=== PATIENT | female | born 1965 | race Caucasian/White ===

== ENCOUNTER 2016-07-27 18:29 | Inpatient (IN) | payer MEDICARE, MEDICAID ==
[~2016-07-27] VITALS: Ht 172.7 cm; Wt 123.9 kg
[~2016-07-27 18:29] MED LIST: ALBU8.5H3 IH; ASPI-1093 PO; CINA30 PO; INSLAN SQ; ISOS60TA4 PO; OXYC-158 PO; RANO500T3 PO; SEVEC800 PO; SIMV-261 PO; TEMA15CA PO; TICA90TA PO
[2016-07-27] MEDS ORDERED: LISI-662 PO (18:34)
[2016-07-27 18:41] LABS: GLUCOSE,POINT OF CARE 111 MG/DL (70-110)
[2016-07-27 19:39] LABS: BASOPHILS # (AUTO) 0.01 K/uL (0.00-0.20); BASOPHILS % (AUTO) 0.1 % (0.0-2.0); EOSINOPHILS # (AUTO) 0.19 K/uL (0.00-0.70); EOSINOPHILS % (AUTO) 1.77 % (1.0-6.0); HEMATOCRIT 30.9 % (36-46); HEMOGLOBIN 10.3 g/dL (12.0-16.0); LYMPHOCYTES # (AUTO) 1.7 K/uL (1.0-4.8); MEAN CORPUSCULAR HGB CONC 33.5 G/dL (31.0-37.0); MEAN CORPUSCULAR VOLUME 95 fL (80-100); MONOCYTES # (AUTO) 0.5 K/uL (0.1-1.0); MONOCYTES % (AUTO) 4.6 % (2.0-9.0); NEUTROPHILS # (AUTO) 8.3 K/uL (1.8-7.7); NEUTROPHILS % (AUTO) 77.6 % (40.0-70.0); PLATELET COUNT (AUTO) 186 K/uL (150-450); RED BLOOD CELL COUNT(AUTO) 3.23 MIL/uL (4.00-5.20); RED CELL DISTRIBUTION WIDTH 15.9 % (11.5-14.5); WHITE BLOOD COUNT (AUTO) 10.6 K/uL (4.5-11.0)
[2016-07-27] MEDS ORDERED: 0.9% SODIUM CHLORIDE 5 ML NEB SOLUTION NEB ONE (19:40)
[2016-07-27] MEDS ORDERED: MethylPREDNISolone SOD SUCC 125 MG/2 ML VIAL IVP ONE (19:45)
[2016-07-27] MEDS ORDERED: ALBUTEROL SULFATE 5 MG/ML 20 ML NEB SOLN [BULK] NEB ONE (19:45)
[2016-07-27] MEDS ORDERED: IPRATROPIUM BROMIDE 0.5 MG/2.5 ML NEB SOLUTION NEB ONE (19:45)
[2016-07-27] MEDS ORDERED: FUROSEMIDE 40 MG/4 ML VIAL IVP ONE (19:45)
[2016-07-27] MEDS ORDERED: HydrOXYzine PAMOATE 50 MG CAPSULE PO ONE (19:45)
[2016-07-27 19:56] LABS: ALANINE AMINOTRANSFERASE 8 U/L (12-78); ALBUMIN 3.4 g/dL (3.4-5.0); ANION GAP 14 mmol/L (8-16); ASPARTATE AMINOTRANSFERASE 8 U/L (15-37); BILIRUBIN,TOTAL 0.6 mg/dL (0.1-1.0); CALCIUM, TOTAL 9.3 mg/dL (8.8-10.5); CARBON DIOXIDE 23 mmol/L (22-29); CHLORIDE 102 mmol/L (98-107); CREATINE KINASE, TOTAL 30 U/L (26-192); CREATININE 8.38 mg/dL (0.60-1.30); GLOMERULAR FILTR. RATE CALC 5 mL/min (>60); SODIUM SERUM 139 mmol/L (136-145); TOTAL PROTEIN, SERUM 7.2 g/dL (6.4-8.2); UREA NITROGEN, BLOOD 53 mg/dL (7-18)
[2016-07-27] MEDS ORDERED: SODIUM POLYSTYRENE SULFONATE 15 GM/60 ML SUSPENSION BOTTLE PO ONE (20:30)
[2016-07-27] MEDS ORDERED: CALCIUM GLUCONATE 100 MG/ML 10 ML IVP ONE (20:30)
[2016-07-27] MEDS ORDERED: SODIUM BICARBONATE [ADULT] 8.4% 50 MEQ/50 ML SYRINGE IVP ONE (20:30)
[2016-07-27] MEDS ORDERED: INSULIN REGULAR, HUMAN 100 UNITS/ML IVP ONE (20:45)
[2016-07-27] MEDS ORDERED: MORPHINE SULFATE 4 MG/ML SYRINGE IVP PRN (20:45)
[2016-07-27] MEDS ORDERED: ACETAMINOPHEN 325 MG TABLET PO PRN (20:45)
[2016-07-27] MEDS ORDERED: ONDANSETRON HCL 4 MG/2 ML VIAL IVP PRN (20:45)
[2016-07-27] MEDS ORDERED: DEXTROSE 50%-WATER 25 GM/50 ML SYRINGE IVP ONE (20:45)
[2016-07-27] MEDS ORDERED: OxyCODONE HCL/ACETAMINOPHEN 5-325 MG TABLET PO PRN (20:45)
[2016-07-27] MEDS: ALBUTEROL SULFATE 2.5 MG/0.5 ML NEB SOLUTION NEB SCH (22:46)
[2016-07-27] MEDS: IPRATROPIUM BROMIDE 0.5 MG/2.5 ML NEB SOLUTION NEB SCH (22:46)
[2016-07-28] VITALS (8 sets, daily range): BP systolic 129–161; BP diastolic 69–96
[2016-07-28] MEDS: ALBUTEROL SULFATE 2.5 MG/0.5 ML NEB SOLUTION NEB SCH (03:20)
[2016-07-28] MEDS: IPRATROPIUM BROMIDE 0.5 MG/2.5 ML NEB SOLUTION NEB SCH (03:20)
[2016-07-28] MEDS ORDERED: ALBUTEROL SULFATE HFA 90 MCG/PUFF 8 GM INHALER IH PRN (03:30)
[2016-07-28] MEDS ORDERED: INSULIN DETEMIR 100 UNITS/ML SQ ONE (03:30)
[2016-07-28] MEDS ORDERED: TEMAZEPAM 15 MG CAPSULE PO PRN (03:30)
[2016-07-28] MEDS ORDERED: 0.9% SODIUM CHLORIDE 10 ML SYRINGE IVP PRN (03:45)
[2016-07-28] MEDS ORDERED: MAGNESIUM HYDROXIDE SUSPENSION 30 ML UDCUP PO PRN (03:45)
[2016-07-28] MEDS ORDERED: ACETAMINOPHEN 325 MG TABLET PO PRN (03:45)
[2016-07-28] MEDS ORDERED: ONDANSETRON HCL 4 MG/2 ML VIAL IVP PRN (03:45)
[2016-07-28] MEDS ORDERED: OxyCODONE HCL/ACETAMINOPHEN 5-325 MG TABLET PO PRN (03:45)
[2016-07-28 03:52] LABS: GLUCOSE,POINT OF CARE 234 MG/DL (70-110)
[2016-07-28] MEDS: OxyCODONE HCL/ACETAMINOPHEN 5-325 MG TABLET PO PRN ×3 (07:51→22:26)
[2016-07-28] MEDS ORDERED: SEVELAMER CARBONATE 800 MG TABLET PO SCH (08:00)
[2016-07-28] MEDS ORDERED: CINACALCET HCL 30 MG TABLET PO SCH (08:00)
[2016-07-28] MEDS: PANTOPRAZOLE SODIUM 40 MG/VIAL IVP SCH (09:03)
[2016-07-28] MEDS: DOCUSATE SODIUM 100 MG CAPSULE PO SCH ×2 (09:04→22:23)
[2016-07-28] MEDS: LISINOPRIL 20 MG TABLET PO SCH (09:18)
[2016-07-28] MEDS: RANOLAZINE 500 MG SR TABLET PO SCH ×2 (09:18→22:23)
[2016-07-28] MEDS: ASPIRIN 81 MG EC TABLET PO SCH (09:18)
[2016-07-28] MEDS: VITAMIN B COMP/VIT C/FOLIC ACID CAPSULE PO SCH (13:34)
[2016-07-28] MEDS: SEVELAMER CARBONATE 800 MG TABLET PO SCH (17:49)
[2016-07-28] MEDS ORDERED: SIMVASTATIN 40 MG TABLET PO SCH (21:00)
[2016-07-28] MEDS ORDERED: SODIUM CHLORIDE 0.9% 1,000 ML IV ONE ×2 (23:36→23:37)
[2016-07-29] VITALS: BP 104/45
[2016-07-29] MEDS ORDERED: DEXTROSE 50%-WATER 25 GM/50 ML SYRINGE IVP PRN (04:00)
[2016-07-29 04:11] VITALS: BP 107/54
[2016-07-29] MEDS: INSULIN ASPART 100 UNITS/ML SQ PRN ×2 (06:34→11:33)
[2016-07-29 07:11] VITALS: BP 117/68
[2016-07-29 07:55] LABS: BASOPHILS % (AUTO) 0.3 % (0.0-2.0); EOSINOPHILS % (AUTO) 0.4 % (1.0-6.0); HEMATOCRIT 27.1 % (36-46); HEMOGLOBIN 8.8 g/dL (12.0-16.0); LYMPHOCYTES % (AUTO) 20.1 % (22.0-44.0); MEAN CORPUSCULAR HEMOGLOBIN 31.4 pg (26.0-34.0); MEAN CORPUSCULAR HGB CONC 32.4 G/dL (31.0-37.0); MEAN CORPUSCULAR VOLUME 97 fL (80-100); MONOCYTES # (AUTO) 0.4 K/uL (0.1-1.0); MONOCYTES % (AUTO) 4.3 % (2.0-9.0); NEUTROPHILS # (AUTO) 7.6 K/uL (1.8-7.7); NEUTROPHILS % (AUTO) 74.9 % (40.0-70.0); PLATELET COUNT (AUTO) 147 K/uL (150-450); RED BLOOD CELL COUNT(AUTO) 2.79 MIL/uL (4.00-5.20); RED CELL DISTRIBUTION WIDTH 15.6 % (11.5-14.5); WHITE BLOOD COUNT (AUTO) 10.2 K/uL (4.5-11.0)
[2016-07-29] MEDS ORDERED: CINACALCET HCL 30 MG TABLET PO SCH (08:00)
[2016-07-29 08:25] LABS: ALANINE AMINOTRANSFERASE 7 U/L (12-78); ALBUMIN 3.2 g/dL (3.4-5.0); ANION GAP 9 mmol/L (8-16); ASPARTATE AMINOTRANSFERASE < 5 U/L (15-37); BILIRUBIN,TOTAL 0.4 mg/dL (0.1-1.0); CALCIUM, TOTAL 8.9 mg/dL (8.8-10.5); CARBON DIOXIDE 29 mmol/L (22-29); CHLORIDE 101 mmol/L (98-107); CREATININE 5.53 mg/dL (0.60-1.30); GLOMERULAR FILTR. RATE CALC 8 mL/min (>60); POTASSIUM 4.3 mmol/L (3.5-5.1); SODIUM SERUM 139 mmol/L (136-145); TOTAL PROTEIN, SERUM 6.6 g/dL (6.4-8.2); UREA NITROGEN, BLOOD 32 mg/dL (7-18)
[2016-07-29] MEDS: PANTOPRAZOLE SODIUM 40 MG/VIAL IVP SCH (08:44)
[2016-07-29] MEDS: SEVELAMER CARBONATE 800 MG TABLET PO SCH ×2 (08:45→12:00)
[2016-07-29] MEDS: RANOLAZINE 500 MG SR TABLET PO SCH (08:46)
[2016-07-29] MEDS: VITAMIN B COMP/VIT C/FOLIC ACID CAPSULE PO SCH (08:46)
[2016-07-29] MEDS: DOCUSATE SODIUM 100 MG CAPSULE PO SCH (08:46)
[2016-07-29] MEDS: LISINOPRIL 20 MG TABLET PO SCH (08:46)
[2016-07-29] MEDS: ASPIRIN 81 MG EC TABLET PO SCH (08:46)
[2016-07-29 10:59] VITALS: BP 109/59
[2016-07-29] MEDS: OxyCODONE HCL/ACETAMINOPHEN 5-325 MG TABLET PO PRN (11:55)
[2016-07-29 15:05] VITALS: BP 118/68
[2016-07-29] MEDS ORDERED: DiphenhydrAMINE HCL 50 MG/ML VIAL IVP ONE (15:59)
[2016-07-29 17:22] LABS: GLUCOSE,POINT OF CARE 120 MG/DL (70-110)
[2016-08-07 11:47] LABS: GLUCOSE,POINT OF CARE 129 MG/DL (70-110)
== END 2016-07-29 16:00 | disposition home or self-care (01) | DRG 291 ==
LOC: EMS 18:32 → AHU 07-28 11:00 → 5N 07-28 20:00
PROVIDERS: ADMIT Internal Medicine; ATTEND Internal Medicine
PROC: 5A1D00Z (ICD-10-PCS; principal; 2016-07-28)
DX: I13.2 Hypertensive heart and chronic kidney disease with heart failure and with stage 5 chronic kidney disease, or end stage renal disease (principal); N18.6 End stage renal disease; Z68.41 Body mass index [BMI] 40.0-44.9, adult; N25.81 Secondary hyperparathyroidism of renal origin; E87.5 Hyperkalemia; D63.1 Anemia in chronic kidney disease; E11.22 Type 2 diabetes mellitus with diabetic chronic kidney disease; E11.42 Type 2 diabetes mellitus with diabetic polyneuropathy; F41.9 Anxiety disorder, unspecified; I25.10 Atherosclerotic heart disease of native coronary artery without angina pectoris; I48.0 Paroxysmal atrial fibrillation; I50.9 Heart failure, unspecified; E66.01 Morbid (severe) obesity due to excess calories; I35.0 Nonrheumatic aortic (valve) stenosis; J44.9 Chronic obstructive pulmonary disease, unspecified; J45.909 Unspecified asthma, uncomplicated; K52.9 Noninfective gastroenteritis and colitis, unspecified; Z95.5 Presence of coronary angioplasty implant and graft; Z99.2 Dependence on renal dialysis; I25.2 Old myocardial infarction; Z88.0 Allergy status to penicillin; Z90.710 Acquired absence of both cervix and uterus; Z98.890 Other specified postprocedural states; Z79.4 Long term (current) use of insulin; Z79.899 Other long term (current) drug therapy
CPT/HCPCS: 82962; 84132; 87081; 87340; 90935; 93005; 94640; 94644; 99291; C9113; J0610; J1200; J1815; J1940; J2930; J3490; J3535; J7030

== ENCOUNTER 2016-08-02 11:38 | Inpatient (IN) | payer MEDICARE, MEDICAID ==
[~2016-08-02] VITALS: Ht 167.6 cm; Wt 124.8 kg
[~2016-08-02 11:38] MED LIST changes: -ISOS60TA4 PO; +LISI-662 PO; -TICA90TA PO
[2016-08-02] MEDS ORDERED: ONDANSETRON HCL 4 MG/2 ML VIAL IM ONE (13:15)
[2016-08-02 13:29] LABS: BASOPHILS % (AUTO) 0.6 % (0.0-2.0); EOSINOPHILS % (AUTO) 0.6 % (1.0-6.0); LYMPHOCYTES # (AUTO) 1.4 K/uL (1.0-4.8); LYMPHOCYTES % (AUTO) 10.8 % (22.0-44.0); MEAN CORPUSCULAR HEMOGLOBIN 31.4 pg (26.0-34.0); MEAN CORPUSCULAR HGB CONC 32.8 G/dL (31.0-37.0); MEAN CORPUSCULAR VOLUME 96 fL (80-100); MONOCYTES # (AUTO) 0.6 K/uL (0.1-1.0); MONOCYTES % (AUTO) 4.6 % (2.0-9.0); NEUTROPHILS # (AUTO) 10.6 K/uL (1.8-7.7); NEUTROPHILS % (AUTO) 83.4 % (40.0-70.0); PLATELET COUNT (AUTO) 187 K/uL (150-450); RED BLOOD CELL COUNT(AUTO) 1.78 MIL/uL (4.00-5.20); RED CELL DISTRIBUTION WIDTH 15.6 % (11.5-14.5); WHITE BLOOD COUNT (AUTO) 12.8 K/uL (4.5-11.0)
[2016-08-02] MEDS ORDERED: ONDANSETRON HCL 4 MG/2 ML VIAL IVP ONE (13:30)
[2016-08-02 13:43] LABS: ALBUMIN 2.6 g/dL (3.4-5.0); ANION GAP 11 mmol/L (8-16); BILIRUBIN,TOTAL 0.4 mg/dL (0.1-1.0); CALCIUM, TOTAL 7.8 mg/dL (8.8-10.5); CARBON DIOXIDE 22 mmol/L (22-29); CHLORIDE 104 mmol/L (98-107); CREATININE 9.27 mg/dL (0.60-1.30); GLOMERULAR FILTR. RATE CALC 4 mL/min (>60); SODIUM SERUM 137 mmol/L (136-145); TOTAL PROTEIN, SERUM 5.2 g/dL (6.4-8.2); UREA NITROGEN, BLOOD 79 mg/dL (7-18)
[2016-08-02 13:44] LABS: HEMOGLOBIN 5.6 g/dL (12.0-16.0)
[2016-08-02 13:45] LABS: HEMATOCRIT 17.1 % (36-46)
[2016-08-02] MEDS ORDERED: MORPHINE SULFATE 10 MG/ML SYRINGE IVP ONE (13:45)
[2016-08-02 13:52] LABS: POTASSIUM 6.8 mmol/L (3.5-5.1)
[2016-08-02] MEDS ORDERED: DEXTROSE 5%-WATER 1,000 ML IV SCH (14:09)
[2016-08-02 14:11] LABS: ASPARTATE AMINOTRANSFERASE 7 U/L (15-37)
[2016-08-02 14:12] LABS: ALANINE AMINOTRANSFERASE < 6 U/L (12-78)
[2016-08-02] MEDS ORDERED: SODIUM BICARBONATE [ADULT] 8.4% 50 MEQ/50 ML SYRINGE IVP ONE (14:15)
[2016-08-02] MEDS ORDERED: CALCIUM GLUCONATE 100 MG/ML 10 ML IVP ONE ×2 (14:15→14:30)
[2016-08-02] MEDS ORDERED: DEXTROSE 50%-WATER 25 GM/50 ML SYRINGE IVP ONE ×2 (14:15→14:45)
[2016-08-02] MEDS ORDERED: SODIUM POLYSTYRENE SULFONATE 15 GM/60 ML SUSPENSION BOTTLE PO ONE (14:15)
[2016-08-02] MEDS ORDERED: INSULIN REGULAR, HUMAN 100 UNITS/ML IVP ONE (14:30)
[2016-08-02] MEDS ORDERED: PANTOPRAZOLE SODIUM 40 MG/VIAL IVP ONE (14:30)
[2016-08-02] MEDS ORDERED: HYDROmorphone 2 MG/ML SYRINGE IVP ONE (14:30)
[2016-08-02] MEDS ORDERED: ACETAMINOPHEN 325 MG TABLET PO PRN ×2 (14:45→21:45)
[2016-08-02] MEDS ORDERED: 0.9% SODIUM CHLORIDE 10 ML SYRINGE IVP PRN (14:45)
[2016-08-02] MEDS ORDERED: SODIUM CHLORIDE 0.9% 2,000 ML IV ONE (15:30)
[2016-08-02 15:31] LABS: INR 1.1 (0.9-1.1)
[2016-08-02] MEDS: ONDANSETRON HCL 4 MG/2 ML VIAL IVP PRN ×2 (15:32→18:03)
[2016-08-02] MEDS ORDERED: DESMOPRESSIN ACETATE 40 MCG in SODIUM CHLORIDE 0.9% 50 ML IV ONE (15:45)
[2016-08-02 16:26] LABS: INR 1.1 (0.9-1.1); PROTHROMBIN TIME 11.9 SEC (9.4-11.6)
[2016-08-02] MEDS ORDERED: MANNITOL 25%-12.5 GM/50 ML VIAL IVP PRN (16:45)
[2016-08-02 17:08] VITALS: BP 123/39
[2016-08-02] MEDS: PANTOPRAZOLE SODIUM 40 MG/VIAL IVP SCH (18:03)
[2016-08-02 18:30] VITALS: BP 150/67
[2016-08-02 18:45] VITALS: BP 129/60
[2016-08-02 19:00] VITALS: BP 149/51
[2016-08-02 20:14] VITALS: BP 140/57
[2016-08-02] MEDS ORDERED: ZOLPIDEM TARTRATE 10 MG TABLET PO PRN (21:45)
[2016-08-02] MEDS ORDERED: ALBUTEROL SULFATE HFA 90 MCG/PUFF 8 GM INHALER IH PRN (21:45)
[2016-08-02] MEDS: TEMAZEPAM 15 MG CAPSULE PO PRN (23:11)
[2016-08-02 23:25] VITALS: BP 122/45
[2016-08-03] VITALS (16 sets, daily range): BP systolic 87–118; BP diastolic 41–72
[2016-08-03] MEDS ORDERED: SODIUM CHLORIDE 0.9% 500 ML IV ONE (02:28)
[2016-08-03] MEDS: OxyCODONE HCL/ACETAMINOPHEN 5-325 MG TABLET PO PRN ×2 (02:59→20:33)
[2016-08-03] MEDS: SEVELAMER CARBONATE 800 MG TABLET PO SCH ×3 (07:50→18:00)
[2016-08-03] MEDS: RANOLAZINE 500 MG SR TABLET PO SCH ×2 (07:50→20:46)
[2016-08-03] MEDS: CINACALCET HCL 30 MG TABLET PO SCH (07:50)
[2016-08-03] MEDS: LISINOPRIL 20 MG TABLET PO SCH (07:51)
[2016-08-03] MEDS: PANTOPRAZOLE SODIUM 40 MG/VIAL IVP SCH ×2 (07:58→20:47)
[2016-08-03 08:19] LABS: BASOPHILS % (AUTO) 1.5 % (0.0-2.0); EOSINOPHILS % (AUTO) 1.4 % (1.0-6.0); HEMATOCRIT 23.1 % (36-46); HEMOGLOBIN 7.5 g/dL (12.0-16.0); LYMPHOCYTES # (AUTO) 2.7 K/uL (1.0-4.8); MEAN CORPUSCULAR HEMOGLOBIN 30.8 pg (26.0-34.0); MEAN CORPUSCULAR HGB CONC 32.5 G/dL (31.0-37.0); MEAN CORPUSCULAR VOLUME 95 fL (80-100); MONOCYTES # (AUTO) 0.7 K/uL (0.1-1.0); MONOCYTES % (AUTO) 6.7 % (2.0-9.0); NEUTROPHILS # (AUTO) 7.1 K/uL (1.8-7.7); NEUTROPHILS % (AUTO) 65.4 % (40.0-70.0); PLATELET COUNT (AUTO) 147 K/uL (150-450); RED BLOOD CELL COUNT(AUTO) 2.43 MIL/uL (4.00-5.20); RED CELL DISTRIBUTION WIDTH 15.3 % (11.5-14.5); WHITE BLOOD COUNT (AUTO) 10.8 K/uL (4.5-11.0)
[2016-08-03] MEDS ORDERED: PANTOPRAZOLE SODIUM 40 MG/VIAL IVP SCH (09:00)
[2016-08-03 09:39] LABS: CREATININE 7.05 mg/dL (0.60-1.30); POTASSIUM 5.7 mmol/L (3.5-5.1)
[2016-08-03 09:42] LABS: MAGNESIUM 1.8 mg/dL (1.80-2.40); PHOSPHORUS 5.4 mg/dL (2.5-4.9)
[2016-08-03] MEDS ORDERED: SODIUM CHLORIDE 0.9% 100 ML ONE ×2 (09:54→16:48)
[2016-08-03] MEDS ORDERED: SODIUM CHLORIDE 0.9% 1,000 ML IV ONE (10:42)
[2016-08-03] MEDS ORDERED: LIDOCAINE HCL/PF 2% 5 ML VIAL INJ ONE (12:00)
[2016-08-03] MEDS ORDERED: PROPOFOL 1% 20 ML VIAL IVP ONE (12:00)
[2016-08-03] MEDS ORDERED: DiphenhydrAMINE HCL 50 MG/ML VIAL IVP ONE (12:00)
[2016-08-03] MEDS ORDERED: MANNITOL 25%-12.5 GM/50 ML VIAL IVP PRN (14:30)
[2016-08-03] MEDS ORDERED: ALBUMIN HUMAN 25%-12.5GM/50ML IV BOTTLE IV PRN (14:30)
[2016-08-03] MEDS ORDERED: DiphenhydrAMINE HCL 50 MG/ML VIAL IVP PRN (15:15)
[2016-08-03] MEDS ORDERED: SODIUM CHLORIDE 0.9% 2,000 ML IV ONE (17:29)
[2016-08-03] MEDS: SIMVASTATIN 40 MG TABLET PO SCH (20:46)
[2016-08-04 04:19] VITALS: BP 100/50
[2016-08-04 07:14] VITALS: BP 99/54
[2016-08-04] MEDS: RANOLAZINE 500 MG SR TABLET PO SCH ×2 (08:03→21:49)
[2016-08-04] MEDS: EPOETIN ALFA 10,000 UNITS/ML VIAL SQ SCH (08:03)
[2016-08-04] MEDS: SEVELAMER CARBONATE 800 MG TABLET PO SCH ×3 (08:04→18:14)
[2016-08-04] MEDS: PANTOPRAZOLE SODIUM 40 MG/VIAL IVP SCH ×2 (08:04→21:49)
[2016-08-04] MEDS: LISINOPRIL 20 MG TABLET PO SCH (08:04)
[2016-08-04] MEDS: CINACALCET HCL 30 MG TABLET PO SCH (08:04)
[2016-08-04 08:39] LABS: BASOPHILS % (AUTO) 0.4 % (0.0-2.0); HEMATOCRIT 27.2 % (36-46); HEMOGLOBIN 8.9 g/dL (12.0-16.0); LYMPHOCYTES # (AUTO) 1.7 K/uL (1.0-4.8); LYMPHOCYTES % (AUTO) 18.2 % (22.0-44.0); MEAN CORPUSCULAR HGB CONC 32.8 G/dL (31.0-37.0); MEAN CORPUSCULAR VOLUME 94 fL (80-100); MONOCYTES # (AUTO) 0.7 K/uL (0.1-1.0); MONOCYTES % (AUTO) 7.2 % (2.0-9.0); NEUTROPHILS # (AUTO) 6.7 K/uL (1.8-7.7); NEUTROPHILS % (AUTO) 72.2 % (40.0-70.0); PLATELET COUNT (AUTO) 146 K/uL (150-450); RED BLOOD CELL COUNT(AUTO) 2.88 MIL/uL (4.00-5.20); RED CELL DISTRIBUTION WIDTH 15.3 % (11.5-14.5); WHITE BLOOD COUNT (AUTO) 9.3 K/uL (4.5-11.0)
[2016-08-04 08:45] LABS: CALCIUM, TOTAL 8.5 mg/dL (8.8-10.5); CREATININE 5.08 mg/dL (0.60-1.30); POTASSIUM 4.8 mmol/L (3.5-5.1)
[2016-08-04 08:49] LABS: MAGNESIUM 1.6 mg/dL (1.80-2.40); PHOSPHORUS 4.3 mg/dL (2.5-4.9)
[2016-08-04 10:55] VITALS: BP 100/63
[2016-08-04] MEDS: ONDANSETRON HCL 4 MG/2 ML VIAL IVP PRN ×2 (14:16→20:02)
[2016-08-04 16:25] VITALS: BP 91/48
[2016-08-04 20:13] VITALS: BP 117/68
[2016-08-04] MEDS: SIMVASTATIN 40 MG TABLET PO SCH (21:49)
[2016-08-04] MEDS: TEMAZEPAM 15 MG CAPSULE PO PRN (21:49)
[2016-08-04] MEDS ORDERED: LOPERAMIDE HCL 2 MG CAPSULE PO PRN (22:15)
[2016-08-04 23:41] VITALS: BP 104/53
[2016-08-05 06:12] VITALS: BP 112/61
[2016-08-05 08:16] VITALS: BP 118/49
[2016-08-05] MEDS: RANOLAZINE 500 MG SR TABLET PO SCH ×2 (08:32→20:27)
[2016-08-05] MEDS: SEVELAMER CARBONATE 800 MG TABLET PO SCH ×3 (08:32→18:35)
[2016-08-05] MEDS: CINACALCET HCL 30 MG TABLET PO SCH (08:32)
[2016-08-05] MEDS: PANTOPRAZOLE SODIUM 40 MG/VIAL IVP SCH ×2 (08:32→20:27)
[2016-08-05 09:32] LABS: BASOPHILS % (AUTO) 0.4 % (0.0-2.0); EOSINOPHILS % (AUTO) 1.8 % (1.0-6.0); HEMATOCRIT 27.9 % (36-46); HEMOGLOBIN 9.3 g/dL (12.0-16.0); LYMPHOCYTES # (AUTO) 1.7 K/uL (1.0-4.8); LYMPHOCYTES % (AUTO) 16.5 % (22.0-44.0); MEAN CORPUSCULAR HEMOGLOBIN 31.2 pg (26.0-34.0); MEAN CORPUSCULAR HGB CONC 33.3 G/dL (31.0-37.0); MEAN CORPUSCULAR VOLUME 94 fL (80-100); MONOCYTES # (AUTO) 0.6 K/uL (0.1-1.0); MONOCYTES % (AUTO) 6.2 % (2.0-9.0); NEUTROPHILS # (AUTO) 7.8 K/uL (1.8-7.7); NEUTROPHILS % (AUTO) 75.1 % (40.0-70.0); PLATELET COUNT (AUTO) 150 K/uL (150-450); RED BLOOD CELL COUNT(AUTO) 2.97 MIL/uL (4.00-5.20); WHITE BLOOD COUNT (AUTO) 10.3 K/uL (4.5-11.0)
[2016-08-05 09:43] LABS: CALCIUM, TOTAL 8.2 mg/dL (8.8-10.5); CREATININE 7.39 mg/dL (0.60-1.30); POTASSIUM 5.1 mmol/L (3.5-5.1)
[2016-08-05 14:37] LABS: H. PYLORI ANTIBODY IGM <9.0 units (0.0-8.9)
[2016-08-05 15:13] VITALS: BP 102/44
[2016-08-05 19:51] VITALS: BP 122/64
[2016-08-05] MEDS: SIMVASTATIN 40 MG TABLET PO SCH (20:27)
[2016-08-05 23:36] VITALS: BP 128/73
[2016-08-06 04:41] VITALS: BP 128/67
[2016-08-06 07:42] VITALS: BP 130/77
[2016-08-06] MEDS: CINACALCET HCL 30 MG TABLET PO SCH (08:21)
[2016-08-06] MEDS: PANTOPRAZOLE SODIUM 40 MG/VIAL IVP SCH (08:21)
[2016-08-06] MEDS: RANOLAZINE 500 MG SR TABLET PO SCH (08:21)
[2016-08-06] MEDS: SEVELAMER CARBONATE 800 MG TABLET PO SCH ×3 (08:21→18:00)
[2016-08-06] MEDS: EPOETIN ALFA 10,000 UNITS/ML VIAL SQ SCH (08:26)
[2016-08-06] MEDS: NITROGLYCERIN 2% (1 GM=INCH) PACKET TP SCH ×2 (08:45→16:00)
[2016-08-06 08:46] LABS: CALCIUM, TOTAL 8.4 mg/dL (8.8-10.5); CREATININE 6.13 mg/dL (0.60-1.30); POTASSIUM 4.6 mmol/L (3.5-5.1)
[2016-08-06 08:50] LABS: MAGNESIUM 1.7 mg/dL (1.80-2.40); PHOSPHORUS 4.8 mg/dL (2.5-4.9)
[2016-08-06] MEDS ORDERED: ATORVASTATIN CALCIUM 40 MG TABLET PO SCH (09:00)
[2016-08-06] MEDS ORDERED: METOPROLOL TARTRATE 25 MG TABLET PO SCH (09:00)
[2016-08-06 11:05] LABS: EOSINOPHILS % (AUTO) 1.3 % (1.0-6.0); HEMATOCRIT 27.8 % (36-46); HEMOGLOBIN 9.2 g/dL (12.0-16.0); LYMPHOCYTES # (AUTO) 1.2 K/uL (1.0-4.8); LYMPHOCYTES % (AUTO) 13.9 % (22.0-44.0); MEAN CORPUSCULAR HEMOGLOBIN 30.9 pg (26.0-34.0); MEAN CORPUSCULAR VOLUME 94 fL (80-100); MONOCYTES # (AUTO) 0.5 K/uL (0.1-1.0); MONOCYTES % (AUTO) 5.3 % (2.0-9.0); NEUTROPHILS % (AUTO) 79.5 % (40.0-70.0); PLATELET COUNT (AUTO) 158 K/uL (150-450); RED BLOOD CELL COUNT(AUTO) 2.96 MIL/uL (4.00-5.20); RED CELL DISTRIBUTION WIDTH 14.5 % (11.5-14.5); WHITE BLOOD COUNT (AUTO) 8.8 K/uL (4.5-11.0)
[2016-08-06] MEDS: ONDANSETRON HCL 4 MG/2 ML VIAL IVP PRN (15:38)
[2016-08-06 15:55] VITALS: BP 109/52
[2016-08-06] MEDS ORDERED: ATOR40TA28 PO (16:44)
[2016-08-06] MEDS ORDERED: METO25 PO (16:46)
[2016-08-06] MEDS ORDERED: DiphenhydrAMINE HCL 50 MG/ML VIAL IVP ONE (19:14)
[2016-08-07 11:59] LABS: GLUCOSE,POINT OF CARE 88 MG/DL (70-110)
== END 2016-08-06 19:15 | disposition home or self-care (01) | DRG 377 ==
LOC: EMS 11:40 → 5N 14:33
PROVIDERS: ADMIT Internal Medicine; ATTEND Hospitalist
PROC: 5A1D60Z (ICD-10-PCS; 2016-08-03)
PROC: 30233N1 Transfusion of Nonautologous Red Blood Cells into Peripheral Vein, Percutaneous Approach (ICD-10-PCS; 2016-08-03)
PROC: 0W3P8ZZ Control Bleeding in Gastrointestinal Tract, Via Natural or Artificial Opening Endoscopic (ICD-10-PCS; principal; 2016-08-03 11:30)
DX: K26.4 Chronic or unspecified duodenal ulcer with hemorrhage (principal); N18.6 End stage renal disease; I21.4 Non-ST elevation (NSTEMI) myocardial infarction; I13.2 Hypertensive heart and chronic kidney disease with heart failure and with stage 5 chronic kidney disease, or end stage renal disease; Z68.41 Body mass index [BMI] 40.0-44.9, adult; E11.22 Type 2 diabetes mellitus with diabetic chronic kidney disease; D64.9 Anemia, unspecified; E78.5 Hyperlipidemia, unspecified; E87.5 Hyperkalemia; J44.9 Chronic obstructive pulmonary disease, unspecified; E66.9 Obesity, unspecified; I25.10 Atherosclerotic heart disease of native coronary artery without angina pectoris; J45.909 Unspecified asthma, uncomplicated; I35.0 Nonrheumatic aortic (valve) stenosis; I48.0 Paroxysmal atrial fibrillation; I50.9 Heart failure, unspecified; Z87.11 Personal history of peptic ulcer disease; Z88.0 Allergy status to penicillin; Z79.4 Long term (current) use of insulin; Z79.891 Long term (current) use of opiate analgesic; Z79.899 Other long term (current) drug therapy; Z95.5 Presence of coronary angioplasty implant and graft; I25.2 Old myocardial infarction; Z99.2 Dependence on renal dialysis; Z90.710 Acquired absence of both cervix and uterus; Z90.49 Acquired absence of other specified parts of digestive tract; Z82.49 Family history of ischemic heart disease and other diseases of the circulatory system
CPT/HCPCS: 82962; 83540; 83550; 83735; 84100; 86677; 86850; 86900; 86901; 86920; 87081; 87340; 90935; 93005; 93306; 96374; 96375; 99291; C9113; J0610; J0885; J1200; J1815; J2270; J2405; J2597; J2704; J3490; J3535; J7030; J7040; J7050; P9016

== ENCOUNTER 2016-08-20 00:17 | Inpatient (IN) | payer MEDICARE, MEDICAID ==
[~2016-08-20] VITALS: Ht 172.7 cm; Wt 122.7 kg
[~2016-08-20 00:17] MED LIST changes: -ASPI-1093 PO; +ATOR40TA28 PO; -LISI-662 PO; +METO25 PO; -SIMV-261 PO
[2016-08-20 01:45] LABS: BASOPHILS % (AUTO) 0.4 % (0.0-2.0); EOSINOPHILS % (AUTO) 2.4 % (1.0-6.0); HEMATOCRIT 28.6 % (36-46); HEMOGLOBIN 9.2 g/dL (12.0-16.0); LYMPHOCYTES # (AUTO) 1.7 K/uL (1.0-4.8); LYMPHOCYTES % (AUTO) 16.3 % (22.0-44.0); MEAN CORPUSCULAR HEMOGLOBIN 30.7 pg (26.0-34.0); MEAN CORPUSCULAR HGB CONC 32.2 G/dL (31.0-37.0); MEAN CORPUSCULAR VOLUME 95 fL (80-100); MONOCYTES # (AUTO) 0.5 K/uL (0.1-1.0); MONOCYTES % (AUTO) 5.1 % (2.0-9.0); NEUTROPHILS # (AUTO) 7.7 K/uL (1.8-7.7); NEUTROPHILS % (AUTO) 75.8 % (40.0-70.0); PLATELET COUNT (AUTO) 169 K/uL (150-450); RED CELL DISTRIBUTION WIDTH 16.7 % (11.5-14.5); WHITE BLOOD COUNT (AUTO) 10.2 K/uL (4.5-11.0)
[2016-08-20 01:56] LABS: ANION GAP 11 mmol/L (8-16); CALCIUM, TOTAL 8.1 mg/dL (8.8-10.5); CARBON DIOXIDE 29 mmol/L (22-29); CHLORIDE 102 mmol/L (98-107); CREATININE 8.01 mg/dL (0.60-1.30); GLOMERULAR FILTR. RATE CALC 5 mL/min (>60); POTASSIUM 5.7 mmol/L (3.5-5.1); SODIUM SERUM 142 mmol/L (136-145); UREA NITROGEN, BLOOD 56 mg/dL (7-18)
[2016-08-20 02:02] LABS: ALANINE AMINOTRANSFERASE 8 U/L (12-78); ALBUMIN 3.5 g/dL (3.4-5.0); ASPARTATE AMINOTRANSFERASE 12 U/L (15-37); BILIRUBIN,TOTAL 0.5 mg/dL (0.1-1.0); CREATINE KINASE, TOTAL 49 U/L (26-192); TOTAL PROTEIN, SERUM 6.8 g/dL (6.4-8.2)
[2016-08-20 02:11] LABS: B-TYPE NATRIURETIC PEPTIDE 975 pg/mL (0-100)
[2016-08-20] MEDS ORDERED: IPRATROPIUM BROMIDE 0.5 MG/2.5 ML NEB SOLUTION NEB ONE (02:45)
[2016-08-20] MEDS ORDERED: LEVALBUTEROL HCL 1.25 MG/0.5 ML NEB SOLUTION NEB ONE (02:45)
[2016-08-20] MEDS ORDERED: ASPIRIN 325 MG TABLET PO ONE (03:30)
[2016-08-20] MEDS ORDERED: NITROGLYCERIN 2% (1 GM=INCH) PACKET TP ONE (03:30)
[2016-08-20] MEDS ORDERED: ZOLPIDEM TARTRATE 5 MG TABLET PO PRN (04:45)
[2016-08-20] MEDS ORDERED: ONDANSETRON HCL 4 MG/2 ML VIAL IVP PRN (04:45)
[2016-08-20] MEDS ORDERED: MAGNESIUM HYDROXIDE SUSPENSION 30 ML UDCUP PO PRN (04:45)
[2016-08-20] MEDS ORDERED: DEXTROSE 50%-WATER 25 GM/50 ML SYRINGE IVP PRN (04:45)
[2016-08-20] MEDS ORDERED: BISACODYL 10 MG RECTAL RECTAL SUPPOSITORY PR PRN (04:45)
[2016-08-20] MEDS ORDERED: TEMAZEPAM 15 MG CAPSULE PO PRN (04:45)
[2016-08-20] MEDS ORDERED: SODIUM POLYSTYRENE SULFONATE 15 GM/60 ML SUSPENSION BOTTLE PO ONE (04:45)
[2016-08-20] MEDS: OxyCODONE HCL/ACETAMINOPHEN 5-325 MG TABLET PO PRN (05:22)
[2016-08-20 05:26] VITALS: BP 138/92
[2016-08-20] MEDS: NITROGLYCERIN 2% (1 GM=INCH) PACKET TP SCH ×3 (06:18→18:33)
[2016-08-20] MEDS: IPRATROPIUM BROMIDE 0.5 MG/2.5 ML NEB SOLUTION NEB PRN ×3 (07:13→15:02)
[2016-08-20] MEDS: ALBUTEROL SULFATE 2.5 MG/0.5 ML NEB SOLUTION NEB PRN ×3 (07:13→15:02)
[2016-08-20 07:16] LABS: GLUCOSE COMMENT 1 Received Meds; GLUCOSE,POINT OF CARE 140 MG/DL (70-110)
[2016-08-20 07:19] VITALS: BP 144/89
[2016-08-20] MEDS: MORPHINE SULFATE 2 MG/ML SYRINGE IVP PRN ×2 (07:52→12:49)
[2016-08-20] MEDS: RANOLAZINE 500 MG SR TABLET PO SCH ×2 (08:15→21:00)
[2016-08-20] MEDS: SEVELAMER CARBONATE 800 MG TABLET PO SCH ×3 (08:16→18:33)
[2016-08-20] MEDS: CINACALCET HCL 30 MG TABLET PO SCH (08:16)
[2016-08-20] MEDS: HEPARIN SODIUM,PORCINE 5,000 UNITS/ML VIAL SQ SCH ×2 (08:16→20:58)
[2016-08-20] MEDS: PANTOPRAZOLE SODIUM 40 MG DR TABLET PO SCH (08:16)
[2016-08-20] MEDS ORDERED: METOPROLOL TARTRATE 25 MG TABLET PO SCH (09:00)
[2016-08-20] MEDS: METOPROLOL TARTRATE 25 MG TABLET PO SCH (09:00)
[2016-08-20] MEDS: CLOPIDOGREL BISULFATE 75 MG TABLET PO SCH (09:00)
[2016-08-20] MEDS ORDERED: DiphenhydrAMINE HCL 50 MG/ML VIAL IVP ONE ×2 (10:00→17:06)
[2016-08-20 11:31] VITALS: BP 126/67
[2016-08-20 15:01] VITALS: BP 148/74
[2016-08-20] MEDS ORDERED: DiphenhydrAMINE HCL 50 MG/ML VIAL IVP PRN (16:15)
[2016-08-20] MEDS ORDERED: MANNITOL 25%-12.5 GM/50 ML VIAL IVP PRN (16:15)
[2016-08-20 17:52] LABS: GLUCOSE,POINT OF CARE 124 MG/DL (70-110)
[2016-08-20 19:55] VITALS: BP 136/80
[2016-08-20] MEDS: ACETAMINOPHEN 325 MG TABLET PO PRN (20:58)
[2016-08-20] MEDS: INSULIN DETEMIR 100 UNITS/ML SQ SCH (20:59)
[2016-08-20] MEDS: ATORVASTATIN CALCIUM 40 MG TABLET PO SCH (21:00)
[2016-08-21] VITALS (7 sets, daily range): BP systolic 109–130; BP diastolic 59–76
[2016-08-21] MEDS: NITROGLYCERIN 2% (1 GM=INCH) PACKET TP SCH ×3 (06:00→12:00)
[2016-08-21] MEDS: ACETAMINOPHEN 325 MG TABLET PO PRN (06:03)
[2016-08-21 07:56] LABS: GLUCOSE,POINT OF CARE 123 MG/DL (70-110)
[2016-08-21 07:56] LABS: GLUCOSE,POINT OF CARE 114 MG/DL (70-110)
[2016-08-21] MEDS: SEVELAMER CARBONATE 800 MG TABLET PO SCH ×3 (08:45→18:13)
[2016-08-21] MEDS: CINACALCET HCL 30 MG TABLET PO SCH (08:45)
[2016-08-21] MEDS: PANTOPRAZOLE SODIUM 40 MG DR TABLET PO SCH (08:46)
[2016-08-21] MEDS: HEPARIN SODIUM,PORCINE 5,000 UNITS/ML VIAL SQ SCH ×2 (08:46→21:01)
[2016-08-21] MEDS: CLOPIDOGREL BISULFATE 75 MG TABLET PO SCH (08:46)
[2016-08-21] MEDS: RANOLAZINE 500 MG SR TABLET PO SCH ×2 (08:48→21:01)
[2016-08-21 08:51] LABS: BASOPHILS % (AUTO) 0.6 % (0.0-2.0); EOSINOPHILS % (AUTO) 2.8 % (1.0-6.0); HEMATOCRIT 29.3 % (36-46); HEMOGLOBIN 9.5 g/dL (12.0-16.0); LYMPHOCYTES # (AUTO) 1.4 K/uL (1.0-4.8); LYMPHOCYTES % (AUTO) 16.4 % (22.0-44.0); MEAN CORPUSCULAR HEMOGLOBIN 31.3 pg (26.0-34.0); MEAN CORPUSCULAR HGB CONC 32.5 G/dL (31.0-37.0); MEAN CORPUSCULAR VOLUME 96 fL (80-100); MONOCYTES # (AUTO) 0.4 K/uL (0.1-1.0); MONOCYTES % (AUTO) 5.2 % (2.0-9.0); NEUTROPHILS # (AUTO) 6.2 K/uL (1.8-7.7); PLATELET COUNT (AUTO) 152 K/uL (150-450); RED BLOOD CELL COUNT(AUTO) 3.04 MIL/uL (4.00-5.20); WHITE BLOOD COUNT (AUTO) 8.3 K/uL (4.5-11.0)
[2016-08-21] MEDS: METOPROLOL TARTRATE 25 MG TABLET PO SCH (09:00)
[2016-08-21 09:03] LABS: ALBUMIN 3.5 g/dL (3.4-5.0); BILIRUBIN,TOTAL 0.5 mg/dL (0.1-1.0); CALCIUM, TOTAL 7.7 mg/dL (8.8-10.5); CREATININE 6.3 mg/dL (0.60-1.30); MAGNESIUM 1.7 mg/dL (1.80-2.40); PHOSPHORUS 5.6 mg/dL (2.5-4.9); POTASSIUM 5.7 mmol/L (3.5-5.1); TOTAL PROTEIN, SERUM 7.1 g/dL (6.4-8.2)
[2016-08-21 09:06] LABS: HEMOGLOBIN A1C 5.2 % (4.5-6.2)
[2016-08-21] MEDS ORDERED: MANNITOL 25%-12.5 GM/50 ML VIAL IVP PRN (13:30)
[2016-08-21] MEDS ORDERED: DiphenhydrAMINE HCL 50 MG/ML VIAL IVP PRN (13:30)
[2016-08-21] MEDS: MONTELUKAST SODIUM 10 MG TABLET PO SCH (15:52)
[2016-08-21] MEDS ORDERED: DiphenhydrAMINE HCL 50 MG/ML VIAL IVP ONE (17:19)
[2016-08-21] MEDS: OxyCODONE HCL/ACETAMINOPHEN 5-325 MG TABLET PO PRN (18:49)
[2016-08-21] MEDS: ATORVASTATIN CALCIUM 40 MG TABLET PO SCH (21:01)
[2016-08-21] MEDS: INSULIN DETEMIR 100 UNITS/ML SQ SCH (21:06)
[2016-08-22 02:52] LABS: GLUCOSE,POINT OF CARE 81 MG/DL (70-110)
[2016-08-22 02:52] LABS: GLUCOSE,POINT OF CARE 114 MG/DL (70-110)
[2016-08-22 05:23] VITALS: BP 110/64
[2016-08-22 07:45] VITALS: BP 109/64
[2016-08-22] MEDS: ALBUTEROL SULFATE 2.5 MG/0.5 ML NEB SOLUTION NEB PRN ×3 (07:54→21:41)
[2016-08-22] MEDS: IPRATROPIUM BROMIDE 0.5 MG/2.5 ML NEB SOLUTION NEB PRN ×3 (07:54→21:41)
[2016-08-22] MEDS: HEPARIN SODIUM,PORCINE 5,000 UNITS/ML VIAL SQ SCH ×2 (08:20→20:28)
[2016-08-22] MEDS: METOPROLOL TARTRATE 25 MG TABLET PO SCH (08:21)
[2016-08-22] MEDS: CLOPIDOGREL BISULFATE 75 MG TABLET PO SCH (08:21)
[2016-08-22] MEDS: SEVELAMER CARBONATE 800 MG TABLET PO SCH ×3 (08:21→18:14)
[2016-08-22] MEDS: CINACALCET HCL 30 MG TABLET PO SCH (08:21)
[2016-08-22] MEDS: RANOLAZINE 500 MG SR TABLET PO SCH ×2 (08:21→20:27)
[2016-08-22] MEDS: PANTOPRAZOLE SODIUM 40 MG DR TABLET PO SCH (08:22)
[2016-08-22] MEDS: MONTELUKAST SODIUM 10 MG TABLET PO SCH (08:22)
[2016-08-22 08:30] LABS: CALCIUM, TOTAL 7.4 mg/dL (8.8-10.5); CREATININE 5.89 mg/dL (0.60-1.30); POTASSIUM 5.8 mmol/L (3.5-5.1)
[2016-08-22] MEDS ORDERED: EPOETIN ALFA 10,000 UNITS/ML VIAL SQ SCH (09:00)
[2016-08-22] MEDS: OxyCODONE HCL/ACETAMINOPHEN 5-325 MG TABLET PO PRN (10:38)
[2016-08-22 10:54] VITALS: BP 104/61
[2016-08-22] MEDS: INSULIN ASPART 100 UNITS/ML SQ PRN ×2 (11:52→17:49)
[2016-08-22 15:20] VITALS: BP 92/51
[2016-08-22] MEDS ORDERED: SODIUM CHLORIDE 0.9% 1,000 ML IV ONE (17:06)
[2016-08-22] MEDS ORDERED: ALBUMIN HUMAN 25%-12.5GM/50ML IV BOTTLE IV PRN (17:15)
[2016-08-22] MEDS ORDERED: DiphenhydrAMINE HCL 50 MG/ML VIAL IVP PRN (17:15)
[2016-08-22] MEDS ORDERED: MANNITOL 25%-12.5 GM/50 ML VIAL IVP PRN (17:15)
[2016-08-22 19:35] VITALS: BP 94/43
[2016-08-22 19:47] LABS: GLUCOSE,POINT OF CARE 83 MG/DL (70-110)
[2016-08-22 19:47] LABS: GLUCOSE,POINT OF CARE 96 MG/DL (70-110)
[2016-08-22 19:47] LABS: GLUCOSE,POINT OF CARE 83 MG/DL (70-110)
[2016-08-22] MEDS: ATORVASTATIN CALCIUM 40 MG TABLET PO SCH (20:27)
[2016-08-22] MEDS: INSULIN DETEMIR 100 UNITS/ML SQ SCH (20:40)
[2016-08-22 21:33] LABS: ABG A-A DIFF O2 35.9 mmHg (10-20.0); ABG BASE EXCESS 1.6 mmol/L (-2.0-3.0); ABG HCO3 25.5 mmol/L (22.0-26.0); ABG OXYHEMOGLOBIN 88.3 % (94.0-100.0); ABG PCO2 46 mmHg (35-45); ABG PH 7.384 (7.35-7.450); TEMPERATURE, FAHRENHEIT, BG 98.6 FAHREN (96.0-98.6)
[2016-08-22 23:03] VITALS: BP 106/81
[2016-08-23 05:45] VITALS: BP 97/48
[2016-08-23 06:13] LABS: BASOPHILS % (AUTO) 0.6 % (0.0-2.0); HEMATOCRIT 27.5 % (36-46); HEMOGLOBIN 8.9 g/dL (12.0-16.0); LYMPHOCYTES # (AUTO) 0.7 K/uL (1.0-4.8); LYMPHOCYTES % (AUTO) 10.2 % (22.0-44.0); MEAN CORPUSCULAR HEMOGLOBIN 30.9 pg (26.0-34.0); MEAN CORPUSCULAR HGB CONC 32.3 G/dL (31.0-37.0); MEAN CORPUSCULAR VOLUME 96 fL (80-100); MONOCYTES # (AUTO) 0.7 K/uL (0.1-1.0); MONOCYTES % (AUTO) 9.6 % (2.0-9.0); NEUTROPHILS # (AUTO) 5.3 K/uL (1.8-7.7); NEUTROPHILS % (AUTO) 76.6 % (40.0-70.0); PLATELET COUNT (AUTO) 119 K/uL (150-450); RED BLOOD CELL COUNT(AUTO) 2.87 MIL/uL (4.00-5.20); RED CELL DISTRIBUTION WIDTH 17.2 % (11.5-14.5); WHITE BLOOD COUNT (AUTO) 6.9 K/uL (4.5-11.0)
[2016-08-23 06:37] LABS: ALBUMIN 3.2 g/dL (3.4-5.0); BILIRUBIN,TOTAL 0.3 mg/dL (0.1-1.0); CALCIUM, TOTAL 7.4 mg/dL (8.8-10.5); CREATININE 5.35 mg/dL (0.60-1.30); POTASSIUM 5.2 mmol/L (3.5-5.1); TOTAL PROTEIN, SERUM 6.6 g/dL (6.4-8.2)
[2016-08-23 07:43] VITALS: BP 91/46
[2016-08-23] MEDS: HEPARIN SODIUM,PORCINE 5,000 UNITS/ML VIAL SQ SCH (08:08)
[2016-08-23] MEDS: PANTOPRAZOLE SODIUM 40 MG DR TABLET PO SCH (08:08)
[2016-08-23] MEDS: CINACALCET HCL 30 MG TABLET PO SCH (08:08)
[2016-08-23] MEDS: RANOLAZINE 500 MG SR TABLET PO SCH (08:08)
[2016-08-23] MEDS: METOPROLOL TARTRATE 25 MG TABLET PO SCH (08:09)
[2016-08-23] MEDS: MONTELUKAST SODIUM 10 MG TABLET PO SCH (08:09)
[2016-08-23] MEDS: SEVELAMER CARBONATE 800 MG TABLET PO SCH ×2 (08:09→12:30)
[2016-08-23] MEDS: CLOPIDOGREL BISULFATE 75 MG TABLET PO SCH (08:09)
[2016-08-23] MEDS ORDERED: MONT10TA21 PO (08:54)
[2016-08-23] MEDS ORDERED: CLOP75 PO (08:54)
[2016-08-23] MEDS: INSULIN ASPART 100 UNITS/ML SQ PRN (12:25)
[2016-08-23] MEDS: ALBUTEROL SULFATE 2.5 MG/0.5 ML NEB SOLUTION NEB PRN (13:16)
[2016-08-23] MEDS: IPRATROPIUM BROMIDE 0.5 MG/2.5 ML NEB SOLUTION NEB PRN (13:16)
[2016-08-23 20:27] LABS: GLUCOSE,POINT OF CARE 127 MG/DL (70-110)
[2016-08-24 18:12] LABS: GLUCOSE,POINT OF CARE 109 MG/DL (70-110)
[2016-08-24 18:13] LABS: GLUCOSE,POINT OF CARE 102 MG/DL (70-110)
[2016-08-24 18:13] LABS: GLUCOSE,POINT OF CARE 125 MG/DL (70-110)
== END 2016-08-23 15:50 | disposition home or self-care (01) | DRG 291 ==
LOC: EMS 00:19 → 5N 04:28
PROVIDERS: ADMIT Internal Medicine; ATTEND Internal Medicine
PROC: 5A1D60Z (ICD-10-PCS; principal; 2016-08-20)
DX: I13.2 Hypertensive heart and chronic kidney disease with heart failure and with stage 5 chronic kidney disease, or end stage renal disease (principal); I50.33 Acute on chronic diastolic (congestive) heart failure; N18.6 End stage renal disease; Z68.41 Body mass index [BMI] 40.0-44.9, adult; E11.22 Type 2 diabetes mellitus with diabetic chronic kidney disease; J44.9 Chronic obstructive pulmonary disease, unspecified; I25.10 Atherosclerotic heart disease of native coronary artery without angina pectoris; K52.9 Noninfective gastroenteritis and colitis, unspecified; E87.5 Hyperkalemia; J45.909 Unspecified asthma, uncomplicated; D63.1 Anemia in chronic kidney disease; I35.0 Nonrheumatic aortic (valve) stenosis; E11.42 Type 2 diabetes mellitus with diabetic polyneuropathy; I48.0 Paroxysmal atrial fibrillation; E66.9 Obesity, unspecified; K26.9 Duodenal ulcer, unspecified as acute or chronic, without hemorrhage or perforation; Z88.0 Allergy status to penicillin; Z90.49 Acquired absence of other specified parts of digestive tract; Z90.710 Acquired absence of both cervix and uterus; Z95.5 Presence of coronary angioplasty implant and graft; Z85.028 Personal history of other malignant neoplasm of stomach; Z87.11 Personal history of peptic ulcer disease; Z99.2 Dependence on renal dialysis; I25.2 Old myocardial infarction
CPT/HCPCS: 82805; 82962; 83036; 83540; 83550; 83735; 84100; 85379; 87081; 93005; 94640; 99285; J0885; J1200; J1644; J2270; J2405; J7030

== ENCOUNTER 2016-10-07 00:15 | Inpatient (IN) | payer MEDICARE, MEDICAID ==
[~2016-10-07] VITALS: Ht 172.7 cm; Wt 122.1 kg
[~2016-10-07 00:15] MED LIST changes: +CLOP75 PO; +MONT10TA21 PO
[2016-10-07 00:31] LABS: GLUCOSE,POINT OF CARE 163 MG/DL (70-110)
[2016-10-07 01:19] LABS: BASOPHILS % (AUTO) 0.8 % (0.0-2.0); EOSINOPHILS % (AUTO) 1.7 % (1.0-6.0); HEMATOCRIT 28.7 % (36-46); HEMOGLOBIN 9.3 g/dL (12.0-16.0); LYMPHOCYTES # (AUTO) 1.5 K/uL (1.0-4.8); LYMPHOCYTES % (AUTO) 18.9 % (22.0-44.0); MEAN CORPUSCULAR HGB CONC 32.3 G/dL (31.0-37.0); MEAN CORPUSCULAR VOLUME 99 fL (80-100); MONOCYTES # (AUTO) 0.5 K/uL (0.1-1.0); MONOCYTES % (AUTO) 6.3 % (2.0-9.0); NEUTROPHILS # (AUTO) 5.7 K/uL (1.8-7.7); NEUTROPHILS % (AUTO) 72.3 % (40.0-70.0); PLATELET COUNT (AUTO) 182 K/uL (150-450); WHITE BLOOD COUNT (AUTO) 7.9 K/uL (4.5-11.0)
[2016-10-07 01:28] LABS: PROTHROMBIN TIME 10.9 SEC (9.4-11.6)
[2016-10-07] MEDS ORDERED: PROCHLORPERAZINE EDISYLATE 5 MG/ML 2 ML VIAL IVP ONE (01:30)
[2016-10-07] MEDS ORDERED: MORPHINE SULFATE 10 MG/ML SYRINGE IVP ONE (01:30)
[2016-10-07] MEDS ORDERED: NITROGLYCERIN 2% (1 GM=INCH) PACKET TP ONE (01:30)
[2016-10-07 01:31] LABS: ANION GAP 11 mmol/L (8-16); CALCIUM, TOTAL 9.5 mg/dL (8.8-10.5); CARBON DIOXIDE 29 mmol/L (22-29); CHLORIDE 103 mmol/L (98-107); CREATININE 5.29 mg/dL (0.60-1.30); GLOMERULAR FILTR. RATE CALC 8 mL/min (>60); POTASSIUM 4.4 mmol/L (3.5-5.1); SODIUM SERUM 143 mmol/L (136-145); UREA NITROGEN, BLOOD 39 mg/dL (7-18)
[2016-10-07 01:37] LABS: ALANINE AMINOTRANSFERASE 13 U/L (12-78); ALBUMIN 3.6 g/dL (3.4-5.0); ASPARTATE AMINOTRANSFERASE 12 U/L (15-37); BILIRUBIN,TOTAL 0.4 mg/dL (0.1-1.0); CREATINE KINASE, TOTAL 54 U/L (26-192)
[2016-10-07 02:40] LABS: B-TYPE NATRIURETIC PEPTIDE 770 pg/mL (0-100)
[2016-10-07] MEDS ORDERED: HEPARIN SODIUM,PORCINE 5,000 UNITS/ML VIAL IVP ONE (03:00)
[2016-10-07] MEDS ORDERED: LEVALBUTEROL HCL 0.63 MG/3 ML NEB SOLUTION NEB ONE (03:00)
[2016-10-07 05:34] VITALS: BP 172/103
[2016-10-07 07:38] VITALS: BP 124/76
[2016-10-07] MEDS ORDERED: DEXTROSE 50%-WATER 25 GM/50 ML SYRINGE IVP PRN ×2 (08:30)
[2016-10-07] MEDS ORDERED: BISACODYL 10 MG RECTAL RECTAL SUPPOSITORY PR PRN (08:30)
[2016-10-07] MEDS ORDERED: MORPHINE SULFATE 2 MG/ML SYRINGE IVP PRN (08:30)
[2016-10-07] MEDS ORDERED: ACETAMINOPHEN 325 MG TABLET PO PRN (08:30)
[2016-10-07] MEDS ORDERED: ALBUTEROL SULFATE 2.5 MG/0.5 ML NEB SOLUTION NEB PRN (08:30)
[2016-10-07] MEDS ORDERED: INSULIN ASPART 100 UNITS/ML SQ PRN (08:30)
[2016-10-07] MEDS: CLOPIDOGREL BISULFATE 75 MG TABLET PO SCH (09:47)
[2016-10-07] MEDS: ASPIRIN 81 MG CHEWABLE TABLET PO SCH (09:47)
[2016-10-07] MEDS: DOCUSATE SODIUM 100 MG CAPSULE PO SCH ×2 (09:47→20:03)
[2016-10-07] MEDS: PANTOPRAZOLE SODIUM 40 MG DR TABLET PO SCH (09:48)
[2016-10-07] MEDS: METOPROLOL TARTRATE 25 MG TABLET PO SCH ×2 (09:48→21:37)
[2016-10-07] MEDS: HEPARIN SODIUM,PORCINE 5,000 UNITS/ML VIAL SQ SCH ×2 (09:48→20:03)
[2016-10-07 11:29] VITALS: BP 99/58
[2016-10-07] MEDS: INSULIN ASPART 100 UNITS/ML SQ PRN (12:22)
[2016-10-07 15:48] VITALS: BP 118/63
[2016-10-07] MEDS ORDERED: MANNITOL 25%-12.5 GM/50 ML VIAL IVP PRN (17:45)
[2016-10-07] MEDS ORDERED: DiphenhydrAMINE HCL 25 MG CAPSULE PO PRN (18:00)
[2016-10-07] MEDS: DiphenhydrAMINE HCL 50 MG/ML VIAL IVP PRN (18:53)
[2016-10-07] MEDS: ATORVASTATIN CALCIUM 20 MG TABLET PO SCH (20:03)
[2016-10-07] MEDS: OxyCODONE HCL/ACETAMINOPHEN 5-325 MG TABLET PO PRN (20:04)
[2016-10-07 20:45] VITALS: BP 160/69
[2016-10-07 21:42] LABS: GLUCOSE,POINT OF CARE 82 MG/DL (70-110)
[2016-10-08] VITALS (7 sets, daily range): BP systolic 121–146; BP diastolic 53–92
[2016-10-08 06:57] LABS: GLUCOSE,POINT OF CARE 125 MG/DL (70-110)
[2016-10-08] MEDS: DOCUSATE SODIUM 100 MG CAPSULE PO SCH ×2 (09:06→20:47)
[2016-10-08] MEDS: METOPROLOL TARTRATE 25 MG TABLET PO SCH ×2 (09:06→20:47)
[2016-10-08] MEDS: PANTOPRAZOLE SODIUM 40 MG DR TABLET PO SCH (09:07)
[2016-10-08] MEDS: HEPARIN SODIUM,PORCINE 5,000 UNITS/ML VIAL SQ SCH ×2 (09:07→20:47)
[2016-10-08] MEDS: CLOPIDOGREL BISULFATE 75 MG TABLET PO SCH (09:07)
[2016-10-08] MEDS: ASPIRIN 81 MG CHEWABLE TABLET PO SCH (09:07)
[2016-10-08] MEDS: ATORVASTATIN CALCIUM 20 MG TABLET PO SCH (20:47)
[2016-10-09] VITALS (21 sets, daily range): BP systolic 106–172; BP diastolic 61–83
[2016-10-09] MEDS ORDERED: FentaNYL CITRATE-PF 100 MCG/2 ML VIAL IVP ONE ×3 (08:15→09:45)
[2016-10-09] MEDS ORDERED: MIDAZOLAM HCL 2 MG/2 ML VIAL IVP ONE ×3 (08:15→09:45)
[2016-10-09] MEDS ORDERED: IOHEXOL 300 MG/ML 10 ML VIAL IARTIC ONE (08:15)
[2016-10-09] MEDS ORDERED: LIDOCAINE HCL/PF 2% 5 ML VIAL IARTIC ONE (08:15)
[2016-10-09] MEDS ORDERED: LIDOCAINE 1% 30 ML/SOD BICARB 8.4% 4 ML SQ ONE ×2 (08:15→09:45)
[2016-10-09 08:30] LABS: PROTHROMBIN TIME 10.9 SEC (9.4-11.6)
[2016-10-09] MEDS: HEPARIN SODIUM,PORCINE 5,000 UNITS/ML VIAL SQ SCH ×2 (09:00→21:03)
[2016-10-09] MEDS: METOPROLOL TARTRATE 25 MG TABLET PO SCH ×2 (09:00→21:03)
[2016-10-09] MEDS: CLOPIDOGREL BISULFATE 75 MG TABLET PO SCH (09:00)
[2016-10-09] MEDS: ASPIRIN 81 MG CHEWABLE TABLET PO SCH (09:00)
[2016-10-09] MEDS ORDERED: HEPARIN SODIUM 1000 UNITS/NS 1,000 ML ONE (09:07)
[2016-10-09] MEDS ORDERED: IOHEXOL 300 MG/ML 150 ML VIAL ONE (09:07)
[2016-10-09] MEDS ORDERED: LIDOCAINE HCL/PF 1% 30 ML VIAL ONE (09:07)
[2016-10-09] MEDS ORDERED: SODIUM BICARBONATE 50 MEQ/50 ML VIAL ONE (09:07)
[2016-10-09] MEDS ORDERED: FentaNYL CITRATE-PF 100 MCG/2 ML VIAL ONE (09:29)
[2016-10-09] MEDS ORDERED: MIDAZOLAM HCL 2 MG/2 ML VIAL ONE (09:30)
[2016-10-09] MEDS ORDERED: SODIUM CHLORIDE 0.9% 500 ML IV ONE (09:33)
[2016-10-09] MEDS ORDERED: HEPARIN SODIUM 1000 UNITS/NS 1,000 ML IARTER ONE (09:33)
[2016-10-09] MEDS ORDERED: IOHEXOL 300 MG/ML 150 ML VIAL IARTER ONE (09:45)
[2016-10-09] MEDS ORDERED: HEPARIN SODIUM 1000 UNITS/NS 500 ML ONE (09:55)
[2016-10-09] MEDS: VITAMIN B COMP/VIT C/FOLIC ACID CAPSULE PO SCH (13:50)
[2016-10-09] MEDS: PANTOPRAZOLE SODIUM 40 MG DR TABLET PO SCH (13:50)
[2016-10-09] MEDS: DOCUSATE SODIUM 100 MG CAPSULE PO SCH ×2 (13:50→21:03)
[2016-10-09] MEDS: INSULIN ASPART 100 UNITS/ML SQ PRN (17:42)
[2016-10-09] MEDS: OxyCODONE HCL/ACETAMINOPHEN 5-325 MG TABLET PO PRN (17:43)
[2016-10-09] MEDS: ATORVASTATIN CALCIUM 20 MG TABLET PO SCH (21:03)
[2016-10-09] MEDS: DiphenhydrAMINE HCL 50 MG/ML VIAL IVP PRN (22:14)
[2016-10-10 04:52] VITALS: BP 115/70
[2016-10-10 07:10] LABS: BASOPHILS # (AUTO) 0.07 K/uL (0.00-0.20); BASOPHILS % (AUTO) 0.9 % (0.0-2.0); EOSINOPHILS # (AUTO) 0.14 K/uL (0.00-0.70); EOSINOPHILS % (AUTO) 1.94 % (1.0-6.0); HEMATOCRIT 28.2 % (36-46); HEMOGLOBIN 9.6 g/dL (12.0-16.0); LYMPHOCYTES # (AUTO) 1.8 K/uL (1.0-4.8); LYMPHOCYTES % (AUTO) 24.2 % (22.0-44.0); MEAN CORPUSCULAR HEMOGLOBIN 33.1 pg (26.0-34.0); MEAN CORPUSCULAR HGB CONC 34.1 G/dL (31.0-37.0); MEAN CORPUSCULAR VOLUME 97 fL (80-100); MONOCYTES # (AUTO) 0.5 K/uL (0.1-1.0); MONOCYTES % (AUTO) 7.3 % (2.0-9.0); NEUTROPHILS # (AUTO) 4.9 K/uL (1.8-7.7); NEUTROPHILS % (AUTO) 65.6 % (40.0-70.0); PLATELET COUNT (AUTO) 178 K/uL (150-450); RED CELL DISTRIBUTION WIDTH 16.2 % (11.5-14.5); WHITE BLOOD COUNT (AUTO) 7.5 K/uL (4.5-11.0)
[2016-10-10 07:12] VITALS: BP 116/69
[2016-10-10 07:39] LABS: ALBUMIN 3.3 g/dL (3.4-5.0); BILIRUBIN,TOTAL 0.4 mg/dL (0.1-1.0); CALCIUM, TOTAL 9.7 mg/dL (8.8-10.5); CREATININE 5.95 mg/dL (0.60-1.30); POTASSIUM 4.8 mmol/L (3.5-5.1); TOTAL PROTEIN, SERUM 6.6 g/dL (6.4-8.2)
[2016-10-10] MEDS: METOPROLOL TARTRATE 25 MG TABLET PO SCH (09:00)
[2016-10-10] MEDS: DOCUSATE SODIUM 100 MG CAPSULE PO SCH (09:15)
[2016-10-10] MEDS: HEPARIN SODIUM,PORCINE 5,000 UNITS/ML VIAL SQ SCH (09:15)
[2016-10-10] MEDS: CLOPIDOGREL BISULFATE 75 MG TABLET PO SCH (09:16)
[2016-10-10] MEDS: ASPIRIN 81 MG CHEWABLE TABLET PO SCH (09:16)
[2016-10-10] MEDS: PANTOPRAZOLE SODIUM 40 MG DR TABLET PO SCH (09:16)
[2016-10-10] MEDS: VITAMIN B COMP/VIT C/FOLIC ACID CAPSULE PO SCH (09:17)
[2016-10-10 11:04] VITALS: BP 110/63
[2016-10-10] MEDS ORDERED: SODIUM CHLORIDE 0.9% 2,000 ML IV ONE (11:30)
[2016-10-10 11:38] LABS: GLUCOSE COMMENT 1 Received Meds; GLUCOSE,POINT OF CARE 140 MG/DL (70-110)
[2016-10-10 14:22] LABS: GLUCOSE,POINT OF CARE 116 MG/DL (70-110)
[2016-10-10 15:37] VITALS: BP 120/43
[2016-10-10] MEDS ORDERED: DiphenhydrAMINE HCL 50 MG/ML VIAL IVP ONE (16:59)
[2016-10-12 21:48] LABS: GLUCOSE,POINT OF CARE 96 MG/DL (70-110)
[2016-10-12 21:48] LABS: GLUCOSE COMMENT 1 Received Meds; GLUCOSE,POINT OF CARE 158 MG/DL (70-110)
[2016-10-12 22:17] LABS: GLUCOSE,POINT OF CARE 93 MG/DL (70-110)
[2016-10-12 22:17] LABS: GLUCOSE,POINT OF CARE 115 MG/DL (70-110)
[2016-10-12 22:18] LABS: GLUCOSE COMMENT 1 Received Meds; GLUCOSE,POINT OF CARE 144 MG/DL (70-110)
[2016-10-12 22:18] LABS: GLUCOSE,POINT OF CARE 104 MG/DL (70-110)
[2016-10-12 22:18] LABS: GLUCOSE,POINT OF CARE 98 MG/DL (70-110)
== END 2016-10-10 17:00 | disposition home or self-care (01) | DRG 286 ==
LOC: EMS 00:18 → 5S 03:15
PROVIDERS: ADMIT Internal Medicine; ATTEND Internal Medicine
PROC: 5A1D60Z (ICD-10-PCS; 2016-10-07)
PROC: 4A023N8 Measurement of Cardiac Sampling and Pressure, Bilateral, Percutaneous Approach (ICD-10-PCS; principal; 2016-10-09)
PROC: B2151ZZ Fluoroscopy of Left Heart using Low Osmolar Contrast (ICD-10-PCS; 2016-10-09)
PROC: B2111ZZ Fluoroscopy of Multiple Coronary Arteries using Low Osmolar Contrast (ICD-10-PCS; 2016-10-09)
PROC: B41J1ZZ Fluoroscopy of Other Lower Arteries using Low Osmolar Contrast (ICD-10-PCS; 2016-10-09)
DX: T82.855A Stenosis of coronary artery stent, initial encounter (principal); N18.6 End stage renal disease; I25.110 Atherosclerotic heart disease of native coronary artery with unstable angina pectoris; E44.0 Moderate protein-calorie malnutrition; I13.2 Hypertensive heart and chronic kidney disease with heart failure and with stage 5 chronic kidney disease, or end stage renal disease; I38 Endocarditis, valve unspecified; Z68.41 Body mass index [BMI] 40.0-44.9, adult; Y83.8 Other surgical procedures as the cause of abnormal reaction of the patient, or of later complication, without mention of misadventure at the time of the procedure; E66.01 Morbid (severe) obesity due to excess calories; I35.0 Nonrheumatic aortic (valve) stenosis; I50.9 Heart failure, unspecified; J45.909 Unspecified asthma, uncomplicated; E11.22 Type 2 diabetes mellitus with diabetic chronic kidney disease; I27.2 Other secondary pulmonary hypertension; X58.XXXA Exposure to other specified factors, initial encounter; E78.5 Hyperlipidemia, unspecified; I48.0 Paroxysmal atrial fibrillation; D64.9 Anemia, unspecified; Z79.4 Long term (current) use of insulin; Z79.82 Long term (current) use of aspirin; Z79.01 Long term (current) use of anticoagulants; Y92.89 Other specified places as the place of occurrence of the external cause; Y93.89 Activity, other specified; Y99.8 Other external cause status; Z99.2 Dependence on renal dialysis; Z88.0 Allergy status to penicillin; Z95.5 Presence of coronary angioplasty implant and graft; Z79.899 Other long term (current) drug therapy
CPT/HCPCS: 82962; 87081; 90935; 93005; 93460; 96374; 96375; 99285; J0780; J1200; J1644; J2250; J2270; J3010; J3490; J7030; Q9967

== ENCOUNTER 2016-10-15 16:39 | Emergency (ER) | payer MEDICARE, MEDICAID ==
[~2016-10-15] VITALS: Ht 172.7 cm; Wt 123.7 kg
[2016-10-15 17:07] LABS: GLUCOSE,POINT OF CARE 134 MG/DL (70-110)
[2016-10-15 18:10] LABS: BASOPHILS % (AUTO) 0.5 % (0.0-2.0); EOSINOPHILS % (AUTO) 1.7 % (1.0-6.0); HEMATOCRIT 29.7 % (36-46); HEMOGLOBIN 9.6 g/dL (12.0-16.0); LYMPHOCYTES # (AUTO) 1.5 K/uL (1.0-4.8); MEAN CORPUSCULAR HEMOGLOBIN 32.5 pg (26.0-34.0); MEAN CORPUSCULAR HGB CONC 32.3 G/dL (31.0-37.0); MEAN CORPUSCULAR VOLUME 101 fL (80-100); MONOCYTES # (AUTO) 0.5 K/uL (0.1-1.0); MONOCYTES % (AUTO) 5.4 % (2.0-9.0); NEUTROPHILS # (AUTO) 7.7 K/uL (1.8-7.7); NEUTROPHILS % (AUTO) 77.4 % (40.0-70.0); PLATELET COUNT (AUTO) 174 K/uL (150-450); RED BLOOD CELL COUNT(AUTO) 2.95 MIL/uL (4.00-5.20); RED CELL DISTRIBUTION WIDTH 17.2 % (11.5-14.5); WHITE BLOOD COUNT (AUTO) 9.9 K/uL (4.5-11.0)
[2016-10-15 18:26] LABS: PROTHROMBIN TIME 10.8 SEC (9.4-11.6)
[2016-10-15 18:36] LABS: RBC MORPHOLOGY COMMENT NORMAL RBC MORPH
[2016-10-15 19:18] VITALS: BP 112/70
== END 2016-10-15 19:19 | disposition home or self-care (01) ==
LOC: EMS 16:41
DX: T82.838A Hemorrhage due to vascular prosthetic devices, implants and grafts, initial encounter (principal); I13.2 Hypertensive heart and chronic kidney disease with heart failure and with stage 5 chronic kidney disease, or end stage renal disease; N18.6 End stage renal disease; I50.9 Heart failure, unspecified; I25.10 Atherosclerotic heart disease of native coronary artery without angina pectoris; J45.909 Unspecified asthma, uncomplicated; J44.9 Chronic obstructive pulmonary disease, unspecified; I25.2 Old myocardial infarction; Z99.2 Dependence on renal dialysis; Z79.4 Long term (current) use of insulin; Z88.0 Allergy status to penicillin
CPT/HCPCS: 82962; 99284

== ENCOUNTER → 2016-11-06 | Outpatient (CLI) | payer MEDICARE, MEDICAID ==
[2016-11-06 12:44] LABS: BASOPHILS # (AUTO) 0.05 K/uL (0.00-0.20); BASOPHILS % (AUTO) 0.7 % (0.0-2.0); EOSINOPHILS # (AUTO) 0.08 K/uL (0.00-0.70); EOSINOPHILS % (AUTO) 1.17 % (1.0-6.0); HEMATOCRIT 34.6 % (36-46); HEMOGLOBIN 11.4 g/dL (12.0-16.0); LYMPHOCYTES # (AUTO) 1.5 K/uL (1.0-4.8); MEAN CORPUSCULAR HGB CONC 32.9 G/dL (31.0-37.0); MEAN CORPUSCULAR VOLUME 100 fL (80-100); MONOCYTES # (AUTO) 0.4 K/uL (0.1-1.0); MONOCYTES % (AUTO) 6.1 % (2.0-9.0); NEUTROPHILS # (AUTO) 4.5 K/uL (1.8-7.7); NEUTROPHILS % (AUTO) 69.1 % (40.0-70.0); PLATELET COUNT (AUTO) 200 K/uL (150-450); RED BLOOD CELL COUNT(AUTO) 3.45 MIL/uL (4.00-5.20); RED CELL DISTRIBUTION WIDTH 15.8 % (11.5-14.5); WHITE BLOOD COUNT (AUTO) 6.5 K/uL (4.5-11.0)
[2016-11-06 13:00] LABS: HEMOGLOBIN A1C 5.2 % (4.5-6.2)
[2016-11-06 13:19] LABS: ALBUMIN 4.2 g/dL (3.4-5.0); BILIRUBIN,TOTAL 0.5 mg/dL (0.1-1.0); CALCIUM, TOTAL 10.3 mg/dL (8.8-10.5); CHOL/HDL RATIO 4.9 (3.9-5.7); CREATININE 6.01 mg/dL (0.60-1.30); MAGNESIUM 2.3 mg/dL (1.80-2.40); POTASSIUM 4.6 mmol/L (3.5-5.1); THYROID STIMULATING HORMONE 1.38 uIU/mL (0.36-3.74); TOTAL PROTEIN, SERUM 7.7 g/dL (6.4-8.2)
== END | disposition home or self-care (01) ==
LOC: LABMN 11:54
PROVIDERS: ATTEND Internal Medicine Cardiovascular Disease
DX: I11.0 Hypertensive heart disease with heart failure (principal); I50.9 Heart failure, unspecified; E11.8 Type 2 diabetes mellitus with unspecified complications; E55.9 Vitamin D deficiency, unspecified
CPT/HCPCS: 82306; 83036; 83735; 84439; 84443

== ENCOUNTER 2017-02-10 14:59 | Emergency (ER) | payer MEDICARE, MEDICAID ==
[~2017-02-10] VITALS: Ht 172.7 cm; Wt 124.0 kg
[~2017-02-10 14:59] MED LIST changes: -INSLAN SQ; +INSNOV SQ; +LORA0.5T2 PO; -MONT10TA21 PO; +MOXIOS OS; +PREDAOS OS; -RANO500T3 PO; +[UNRECOGNIZED DRUG - CODE] OS
[2017-02-10] MEDS ORDERED: SERT50TA12 PO (15:04)
[2017-02-10 15:12] LABS: GLUCOSE,POINT OF CARE 159 MG/DL (70-110)
[2017-02-10 15:54] LABS: BASOPHILS % (AUTO) 0.1 % (0.0-2.0); EOSINOPHILS % (AUTO) 0.5 % (1.0-6.0); HEMATOCRIT 35.3 % (36-46); HEMOGLOBIN 11.8 g/dL (12.0-16.0); LYMPHOCYTES % (AUTO) 6.5 % (22.0-44.0); MEAN CORPUSCULAR HEMOGLOBIN 32.5 pg (26.0-34.0); MEAN CORPUSCULAR HGB CONC 33.6 G/dL (31.0-37.0); MEAN CORPUSCULAR VOLUME 97 fL (80-100); MONOCYTES # (AUTO) 0.2 K/uL (0.1-1.0); MONOCYTES % (AUTO) 1.6 % (2.0-9.0); NEUTROPHILS # (AUTO) 13.6 K/uL (1.8-7.7); PLATELET COUNT (AUTO) 197 K/uL (150-450); RED BLOOD CELL COUNT(AUTO) 3.64 MIL/uL (4.00-5.20); RED CELL DISTRIBUTION WIDTH 15.3 % (11.5-14.5); WHITE BLOOD COUNT (AUTO) 14.9 K/uL (4.5-11.0)
[2017-02-10 15:55] LABS: NEUTROPHILS % (AUTO) 91.3 % (40.0-70.0)
[2017-02-10 16:05] LABS: CALCIUM, TOTAL 9.4 mg/dL (8.8-10.5); CREATININE 6.06 mg/dL (0.60-1.30); POTASSIUM 4.5 mmol/L (3.5-5.1)
[2017-02-10 16:11] LABS: ALBUMIN 3.6 g/dL (3.4-5.0); BILIRUBIN,TOTAL 0.5 mg/dL (0.1-1.0); TOTAL PROTEIN, SERUM 7.2 g/dL (6.4-8.2)
[2017-02-10] MEDS ORDERED: ONDANSETRON HCL 4 MG/2 ML VIAL IVP ONE (16:30)
[2017-02-10] MEDS ORDERED: MORPHINE SULFATE 4 MG/ML SYRINGE IVP ONE (16:30)
[2017-02-10] MEDS ORDERED: BARIUM SULFATE 0.1% SUSPENSION 450 ML BOTTLE PO ONE (16:30)
[2017-02-10 16:39] LABS: RBC MORPHOLOGY COMMENT ABNORMAL RBC MORPH
[2017-02-10] MEDS ORDERED: ACETAMINOPHEN 500 MG TABLET PO ONE (17:15)
[2017-02-10] MEDS ORDERED: CLOP75 PO (17:23)
[2017-02-10] MEDS ORDERED: SODIUM CHLORIDE 0.9% 100 ML ONE (18:10)
[2017-02-10] MEDS ORDERED: IOVERSOL 350 MG/ML 100 ML VIAL ONE (18:10)
[2017-02-10] MEDS ORDERED: OxyCODONE HCL/ACETAMINOPHEN 5-325 MG TABLET PO ONE (20:15)
[2017-02-10] MEDS ORDERED: CIPROFLOXACIN HCL 250 MG TABLET PO ONE (20:15)
[2017-02-10 20:48] VITALS: BP 129/71
== END 2017-02-10 20:52 | disposition home or self-care (01) ==
LOC: EMS 15:02
DX: R10.31 Right lower quadrant pain (principal); R11.0 Nausea; K59.00 Constipation, unspecified; J44.9 Chronic obstructive pulmonary disease, unspecified; I12.0 Hypertensive chronic kidney disease with stage 5 chronic kidney disease or end stage renal disease; I25.10 Atherosclerotic heart disease of native coronary artery without angina pectoris; Z88.0 Allergy status to penicillin
CPT/HCPCS: 74177; 80053; 82962; 83690; 84484; 85025; 93005; 96374; 96375; 99285; J2270; J2405; J7050; Q9967

== ENCOUNTER 2017-02-12 16:01 | Emergency (ER) | payer MEDICARE, MEDICAID ==
[~2017-02-12] VITALS: Ht 172.7 cm; Wt 126.0 kg
[~2017-02-12 16:01] MED LIST changes: +SERT50TA12 PO
[2017-02-12 16:11] LABS: GLUCOSE,POINT OF CARE 147 MG/DL (70-110)
[2017-02-12] MEDS ORDERED: SODIUM CHLORIDE 0.9% 1,000 ML IV ONE (16:26)
[2017-02-12] MEDS ORDERED: KETOROLAC TROMETHAMINE 30 MG/ML VIAL IVP ONE (16:30)
[2017-02-12] MEDS ORDERED: ONDANSETRON HCL 4 MG/2 ML VIAL IVP ONE (16:30)
[2017-02-12] MEDS ORDERED: MORPHINE SULFATE 10 MG/ML SYRINGE IVP ONE (17:00)
[2017-02-12] MEDS ORDERED: SODIUM PHOS/SODIUM BIPHOS 133 ML ENEMA PR ONE (17:00)
[2017-02-12 17:10] LABS: CALCIUM, TOTAL 9.5 mg/dL (8.8-10.5); CREATININE 9.9 mg/dL (0.60-1.30); POTASSIUM 5.3 mmol/L (3.5-5.1)
[2017-02-12 17:15] LABS: BASOPHILS % (AUTO) 0.1 % (0.0-2.0); EOSINOPHILS % (AUTO) 1.2 % (1.0-6.0); HEMATOCRIT 30.7 % (36-46); HEMOGLOBIN 10.4 g/dL (12.0-16.0); LYMPHOCYTES # (AUTO) 1.1 K/uL (1.0-4.8); LYMPHOCYTES % (AUTO) 10.9 % (22.0-44.0); MEAN CORPUSCULAR HEMOGLOBIN 32.5 pg (26.0-34.0); MEAN CORPUSCULAR HGB CONC 33.8 G/dL (31.0-37.0); MEAN CORPUSCULAR VOLUME 96 fL (80-100); MONOCYTES # (AUTO) 0.5 K/uL (0.1-1.0); MONOCYTES % (AUTO) 4.8 % (2.0-9.0); NEUTROPHILS # (AUTO) 8.6 K/uL (1.8-7.7); PLATELET COUNT (AUTO) 169 K/uL (150-450); RED BLOOD CELL COUNT(AUTO) 3.19 MIL/uL (4.00-5.20); WHITE BLOOD COUNT (AUTO) 10.4 K/uL (4.5-11.0)
[2017-02-12 17:18] LABS: ALBUMIN 3.1 g/dL (3.4-5.0); BILIRUBIN,TOTAL 0.4 mg/dL (0.1-1.0); TOTAL PROTEIN, SERUM 6.9 g/dL (6.4-8.2)
[2017-02-12 20:13] VITALS: BP 133/89
[2017-02-12] MEDS ORDERED: MAGNESIUM CITRATE 300 ML ORAL SOLUTION PO ONE (20:15)
== END 2017-02-12 20:22 | disposition home or self-care (01) ==
LOC: EMS 16:06
DX: K59.00 Constipation, unspecified (principal); I13.2 Hypertensive heart and chronic kidney disease with heart failure and with stage 5 chronic kidney disease, or end stage renal disease; N18.6 End stage renal disease; I50.9 Heart failure, unspecified; E66.01 Morbid (severe) obesity due to excess calories; I25.10 Atherosclerotic heart disease of native coronary artery without angina pectoris; I25.2 Old myocardial infarction; J45.909 Unspecified asthma, uncomplicated; Z99.2 Dependence on renal dialysis; Z68.41 Body mass index [BMI] 40.0-44.9, adult; Z79.4 Long term (current) use of insulin; Z88.0 Allergy status to penicillin
CPT/HCPCS: 74022; 80053; 82962; 83690; 85025; 96374; 96375; 99285; J2270; J2405; J7030

== ENCOUNTER 2017-03-30 08:54 | Emergency (ER) | payer MEDICARE, MEDICAID ==
[~2017-03-30] VITALS: Ht 172.7 cm; Wt 126.0 kg
[~2017-03-30 08:54] MED LIST changes: -MOXIOS OS
[2017-03-30] MEDS ORDERED: LOSA25TA21 PO (09:06)
[2017-03-30 11:25] VITALS: BP 145/64
[2017-03-30] MEDS ORDERED: MAGNESIUM CITRATE 300 ML ORAL SOLUTION PO ONE (11:45)
[2017-03-30] MEDS ORDERED: ZINC OXIDE 20% 30 GM OINTMENT TP ONE (11:45)
[2017-03-30] MEDS ORDERED: POLYETHYLENE GLYCOL 3350 17 GM PACKET PO ONE (11:45)
== END 2017-03-30 12:24 | disposition home or self-care (01) ==
LOC: EMS 08:55
DX: K62.5 Hemorrhage of anus and rectum (principal); K59.00 Constipation, unspecified; I12.0 Hypertensive chronic kidney disease with stage 5 chronic kidney disease or end stage renal disease; I25.10 Atherosclerotic heart disease of native coronary artery without angina pectoris; J44.9 Chronic obstructive pulmonary disease, unspecified; N18.6 End stage renal disease; Z88.0 Allergy status to penicillin; Z95.2 Presence of prosthetic heart valve; Z99.2 Dependence on renal dialysis
CPT/HCPCS: 74022; 82962; 99284

== ENCOUNTER 2017-05-29 15:21 | Inpatient (IN) | payer MEDICARE, MEDICAID ==
[~2017-05-29] VITALS: Ht 172.7 cm; Wt 122.0 kg
[~2017-05-29 15:21] MED LIST changes: +LOSA25TA21 PO; -PREDAOS OS
[2017-05-29] MEDS ORDERED: DESMOPRESSIN ACETATE IV ONE (15:45)
[2017-05-29] MEDS ORDERED: SODIUM CHLORIDE 0.9% IV ONE (15:45)
[2017-05-29] MEDS ORDERED: VANCOMYCIN HCL 1 GM/D5% WATER 200 ML IV ONE (16:00)
[2017-05-29 16:02] LABS: BASOPHILS % (AUTO) 0.5 % (0.0-2.0); EOSINOPHILS % (AUTO) 1.9 % (1.0-6.0); HEMATOCRIT 28.4 % (36-46); HEMOGLOBIN 9.7 g/dL (12.0-16.0); LYMPHOCYTES # (AUTO) 1.1 K/uL (1.0-4.8); LYMPHOCYTES % (AUTO) 15.5 % (22.0-44.0); MEAN CORPUSCULAR HEMOGLOBIN 33.6 pg (26.0-34.0); MEAN CORPUSCULAR HGB CONC 34.1 G/dL (31.0-37.0); MEAN CORPUSCULAR VOLUME 99 fL (80-100); MONOCYTES # (AUTO) 0.4 K/uL (0.1-1.0); MONOCYTES % (AUTO) 5.2 % (2.0-9.0); NEUTROPHILS # (AUTO) 5.5 K/uL (1.8-7.7); NEUTROPHILS % (AUTO) 76.9 % (40.0-70.0); PLATELET COUNT (AUTO) 145 K/uL (150-450); RED BLOOD CELL COUNT(AUTO) 2.88 MIL/uL (4.00-5.20); RED CELL DISTRIBUTION WIDTH 15.7 % (11.5-14.5)
[2017-05-29 16:12] LABS: GLUCOSE,POINT OF CARE 149 MG/DL (70-110)
[2017-05-29 16:14] LABS: INR 1.1 (0.9-1.1); PROTHROMBIN TIME 11.3 SEC (9.4-11.6)
[2017-05-29 16:16] LABS: CALCIUM, TOTAL 9.2 mg/dL (8.8-10.5); CREATININE 4.16 mg/dL (0.60-1.30); POTASSIUM 3.6 mmol/L (3.5-5.1)
[2017-05-29 16:22] LABS: ALBUMIN 3.4 g/dL (3.4-5.0); BILIRUBIN,TOTAL 0.6 mg/dL (0.1-1.0); TOTAL PROTEIN, SERUM 6.9 g/dL (6.4-8.2)
[2017-05-29] MEDS ORDERED: ACETAMINOPHEN 325 MG TABLET PO PRN (17:15)
[2017-05-29] MEDS ORDERED: ONDANSETRON HCL 4 MG/2 ML VIAL IVP PRN (17:15)
[2017-05-29 18:07] VITALS: BP 101/48
[2017-05-29 20:10] VITALS: BP 139/76
[2017-05-29 20:22] LABS: GLUCOSE,POINT OF CARE 137 MG/DL (70-110)
[2017-05-29 23:43] LABS: HEMATOCRIT 25.8 % (36-46); HEMOGLOBIN 8.6 g/dL (12.0-16.0)
[2017-05-30] VITALS (8 sets, daily range): BP systolic 101–141; BP diastolic 51–80
[2017-05-30 03:50] LABS: HEMATOCRIT 24.2 % (36-46); HEMOGLOBIN 7.9 g/dL (12.0-16.0)
[2017-05-30 07:03] LABS: GLUCOSE,POINT OF CARE 123 MG/DL (70-110)
[2017-05-30 07:59] LABS: HEMATOCRIT 23.8 % (36-46); HEMOGLOBIN 8.1 g/dL (12.0-16.0)
[2017-05-30] MEDS ORDERED: INSULIN ASPART 100 UNITS/ML SQ PRN (08:15)
[2017-05-30] MEDS ORDERED: TEMAZEPAM 15 MG CAPSULE PO PRN (08:15)
[2017-05-30] MEDS ORDERED: ALBUTEROL SULFATE HFA 90 MCG/PUFF 8 GM INHALER IH PRN (08:15)
[2017-05-30] MEDS ORDERED: CYCLOPENTOLATE HCL 2% 2 ML OPHTHALMIC SOLUTION OS SCH (09:00)
[2017-05-30] MEDS: LOSARTAN POTASSIUM 25 MG TABLET PO SCH (09:00)
[2017-05-30] MEDS: METOPROLOL TARTRATE 25 MG TABLET PO SCH (09:00)
[2017-05-30] MEDS: CINACALCET HCL 30 MG TABLET PO SCH (09:31)
[2017-05-30] MEDS: CLOPIDOGREL BISULFATE 75 MG TABLET PO SCH (09:34)
[2017-05-30] MEDS: ATORVASTATIN CALCIUM 40 MG TABLET PO SCH (09:34)
[2017-05-30] MEDS: SERTRALINE HCL 50 MG TABLET PO SCH (09:35)
[2017-05-30] MEDS: OxyCODONE HCL/ACETAMINOPHEN 5-325 MG TABLET PO PRN (11:11)
[2017-05-30 11:36] LABS: HEMATOCRIT 24.8 % (36-46); HEMOGLOBIN 8.5 g/dL (12.0-16.0)
[2017-05-30 11:44] LABS: CALCIUM, TOTAL 9.2 mg/dL (8.8-10.5); CREATININE 6.41 mg/dL (0.60-1.30)
[2017-05-30 11:49] LABS: PHOSPHORUS 5.7 mg/dL (2.5-4.9)
[2017-05-30] MEDS: LORazepam 0.5 MG TABLET PO SCH ×2 (12:44→18:00)
[2017-05-30] MEDS: SEVELAMER CARBONATE 800 MG TABLET PO SCH ×2 (12:44→18:08)
[2017-05-30] MEDS ORDERED: ONDANSETRON HCL 4 MG/2 ML VIAL IVP PRN (13:45)
[2017-05-30] MEDS ORDERED: MAGNESIUM HYDROXIDE SUSPENSION 30 ML UDCUP PO PRN (13:45)
[2017-05-30] MEDS ORDERED: ALBUTEROL SULFATE 2.5 MG/0.5 ML NEB SOLUTION NEB PRN (13:45)
[2017-05-30] MEDS ORDERED: VANCOMYCIN HCL 1 GM/D5% WATER 200 ML IV PRN (13:45)
[2017-05-30] MEDS ORDERED: ACETAMINOPHEN 325 MG TABLET PO PRN (13:45)
[2017-05-30] MEDS ORDERED: IPRATROPIUM BROMIDE 0.5 MG/2.5 ML NEB SOLUTION NEB PRN (13:45)
[2017-05-30] MEDS ORDERED: MORPHINE SULFATE 2 MG/ML SYRINGE IVP PRN (13:45)
[2017-05-30] MEDS ORDERED: BISACODYL 10 MG RECTAL RECTAL SUPPOSITORY PR PRN (13:45)
[2017-05-30] MEDS ORDERED: ZOLPIDEM TARTRATE 5 MG TABLET PO PRN (13:45)
[2017-05-30] MEDS: HEPARIN SODIUM,PORCINE 5,000 UNITS/ML VIAL SQ SCH (16:00)
[2017-05-30] MEDS: HYDROCODONE/ACETAMINOPHEN 5-325 MG TABLET PO PRN (18:28)
[2017-05-30 19:28] LABS: GLUCOSE,POINT OF CARE 120 MG/DL (70-110)
[2017-05-30 21:57] LABS: HEMATOCRIT 22.1 % (36-46); HEMOGLOBIN 7.4 g/dL (12.0-16.0)
[2017-05-30] MEDS: DOCUSATE SODIUM 100 MG CAPSULE PO SCH (22:00)
[2017-05-30 23:49] LABS: GLUCOMETER DEV NAME(LOC) 5N 2R; GLUCOSE,POINT OF CARE 150 MG/DL (70-110)
[2017-05-31] VITALS (7 sets, daily range): BP systolic 110–157; BP diastolic 59–96
[2017-05-31 00:40] LABS: HEMATOCRIT 23.1 % (36-46); HEMOGLOBIN 7.6 g/dL (12.0-16.0)
[2017-05-31] MEDS: LORazepam 0.5 MG TABLET PO SCH ×4 (06:00→17:53)
[2017-05-31] MEDS: HEPARIN SODIUM,PORCINE 5,000 UNITS/ML VIAL SQ SCH ×3 (08:00→17:16)
[2017-05-31] MEDS: CLOPIDOGREL BISULFATE 75 MG TABLET PO SCH (09:00)
[2017-05-31] MEDS: PANTOPRAZOLE SODIUM 40 MG/VIAL IVP SCH (09:22)
[2017-05-31] MEDS: SEVELAMER CARBONATE 800 MG TABLET PO SCH ×3 (09:22→21:49)
[2017-05-31] MEDS: CINACALCET HCL 30 MG TABLET PO SCH (09:22)
[2017-05-31] MEDS: ATORVASTATIN CALCIUM 40 MG TABLET PO SCH (09:23)
[2017-05-31] MEDS: METOPROLOL TARTRATE 25 MG TABLET PO SCH (09:23)
[2017-05-31] MEDS: SERTRALINE HCL 50 MG TABLET PO SCH (09:23)
[2017-05-31] MEDS: DOCUSATE SODIUM 100 MG CAPSULE PO SCH ×2 (09:23→21:49)
[2017-05-31] MEDS: LOSARTAN POTASSIUM 25 MG TABLET PO SCH (13:11)
[2017-05-31] MEDS ORDERED: INSULIN ASPART 100 UNITS/ML SQ PRN (19:00)
[2017-05-31] MEDS ORDERED: DEXTROSE 50%-WATER 25 GM/50 ML SYRINGE IVP PRN (19:00)
[2017-05-31 19:43] LABS: GLUCOMETER DEV NAME(LOC) 5S 2N; GLUCOSE,POINT OF CARE 91 MG/DL (70-110)
[2017-05-31] MEDS: HYDROCODONE/ACETAMINOPHEN 5-325 MG TABLET PO PRN (22:10)
[2017-06-01 00:44] LABS: GLUCOMETER DEV NAME(LOC) 5S 1L; GLUCOSE,POINT OF CARE 111 MG/DL (70-110)
[2017-06-01 00:44] LABS: GLUCOMETER DEV NAME(LOC) 5S 1L; GLUCOSE,POINT OF CARE 117 MG/DL (70-110)
[2017-06-01] MEDS: LORazepam 0.5 MG TABLET PO SCH ×5 (02:54→23:49)
[2017-06-01] MEDS: HEPARIN SODIUM,PORCINE 5,000 UNITS/ML VIAL SQ SCH ×4 (02:55→23:49)
[2017-06-01 03:09] VITALS: BP 95/54
[2017-06-01] MEDS ORDERED: VANCOMYCIN HCL 1 GM/D5% WATER 200 ML IV ONE (06:00)
[2017-06-01 06:39] LABS: GLUCOMETER DEV NAME(LOC) 5N 2R; GLUCOSE,POINT OF CARE 109 MG/DL (70-110)
[2017-06-01] MEDS ORDERED: SODIUM CHLORIDE 0.9% 250 ML IV ONE (07:11)
[2017-06-01 07:17] LABS: CALCIUM, TOTAL 7.8 mg/dL (8.8-10.5); CREATININE 7.64 mg/dL (0.60-1.30); MAGNESIUM 1.9 mg/dL (1.80-2.40); PHOSPHORUS 5.7 mg/dL (2.5-4.9); POTASSIUM 4.6 mmol/L (3.5-5.1)
[2017-06-01] MEDS ORDERED: SODIUM CHLORIDE 0.9% 10 ML ONE (07:57)
[2017-06-01] MEDS ORDERED: LIDOCAINE HCL/PF 1% 30 ML VIAL ONE (07:57)
[2017-06-01] MEDS ORDERED: SODIUM CHLORIDE 0.9% 1,000 ML IV ONE (07:58)
[2017-06-01] MEDS: SERTRALINE HCL 50 MG TABLET PO SCH (08:05)
[2017-06-01] MEDS: PANTOPRAZOLE SODIUM 40 MG/VIAL IVP SCH (08:05)
[2017-06-01] MEDS: METOPROLOL TARTRATE 25 MG TABLET PO SCH (08:05)
[2017-06-01] MEDS: SEVELAMER CARBONATE 800 MG TABLET PO SCH ×3 (08:05→17:50)
[2017-06-01] MEDS: DOCUSATE SODIUM 100 MG CAPSULE PO SCH ×2 (08:05→20:33)
[2017-06-01] MEDS: CINACALCET HCL 30 MG TABLET PO SCH (08:05)
[2017-06-01] MEDS: ATORVASTATIN CALCIUM 40 MG TABLET PO SCH (08:05)
[2017-06-01] MEDS: LOSARTAN POTASSIUM 25 MG TABLET PO SCH (08:08)
[2017-06-01 08:09] VITALS: BP 150/92
[2017-06-01] MEDS: CLOPIDOGREL BISULFATE 75 MG TABLET PO SCH (08:12)
[2017-06-01 08:13] LABS: BASOPHILS # (AUTO) 0.05 K/uL (0.00-0.20); BASOPHILS % (AUTO) 0.8 % (0.0-2.0); EOSINOPHILS # (AUTO) 0.19 K/uL (0.00-0.70); EOSINOPHILS % (AUTO) 3.27 % (1.0-6.0); HEMATOCRIT 23.6 % (36-46); HEMOGLOBIN 7.9 g/dL (12.0-16.0); LYMPHOCYTES # (AUTO) 1.6 K/uL (1.0-4.8); LYMPHOCYTES % (AUTO) 27.6 % (22.0-44.0); MEAN CORPUSCULAR HEMOGLOBIN 33.4 pg (26.0-34.0); MEAN CORPUSCULAR HGB CONC 33.5 G/dL (31.0-37.0); MEAN CORPUSCULAR VOLUME 100 fL (80-100); MONOCYTES # (AUTO) 0.4 K/uL (0.1-1.0); MONOCYTES % (AUTO) 7.1 % (2.0-9.0); NEUTROPHILS # (AUTO) 3.6 K/uL (1.8-7.7); NEUTROPHILS % (AUTO) 61.2 % (40.0-70.0); PLATELET COUNT (AUTO) 114 K/uL (150-450); RED BLOOD CELL COUNT(AUTO) 2.37 MIL/uL (4.00-5.20); RED CELL DISTRIBUTION WIDTH 15.8 % (11.5-14.5)
[2017-06-01] MEDS ORDERED: KETAMINE HCL 50 MG/ML 10 ML VIAL ONE (09:53)
[2017-06-01] MEDS ORDERED: FentaNYL CITRATE-PF 100 MCG/2 ML VIAL IVP PRN (10:00)
[2017-06-01] MEDS ORDERED: HYDROmorphone 2 MG/ML SYRINGE IVP PRN (10:00)
[2017-06-01] MEDS ORDERED: VANCOMYCIN HCL 1 GM/VIAL ONE (10:00)
[2017-06-01] MEDS ORDERED: BACITRACIN 50,000 UNITS/VIAL ONE (10:02)
[2017-06-01 15:55] VITALS: BP 86/48
[2017-06-01 17:07] LABS: HEMATOCRIT 25.4 % (36-46); HEMOGLOBIN 8.6 g/dL (12.0-16.0)
[2017-06-01 18:45] VITALS: BP 119/49
[2017-06-01 19:41] VITALS: BP 116/56
[2017-06-01] MEDS: OXYGEN THERAPY IH SCH (20:33)
[2017-06-01 21:28] LABS: GLUCOMETER DEV NAME(LOC) 5S 1L; GLUCOSE,POINT OF CARE 107 MG/DL (70-110)
[2017-06-01 21:28] LABS: GLUCOMETER DEV NAME(LOC) 5S 1L; GLUCOSE,POINT OF CARE 99 MG/DL (70-110)
[2017-06-01 21:28] LABS: GLUCOMETER DEV NAME(LOC) 5S 1L; GLUCOSE,POINT OF CARE 103 MG/DL (70-110)
[2017-06-01 21:28] LABS: GLUCOMETER DEV NAME(LOC) 5S 1L; GLUCOSE,POINT OF CARE 125 MG/DL (70-110)
[2017-06-02] VITALS (7 sets, daily range): BP systolic 93–154; BP diastolic 47–86
[2017-06-02] MEDS ORDERED: MIDAZOLAM HCL 2 MG/2 ML VIAL IVP ONE (05:41)
[2017-06-02] MEDS ORDERED: PROPOFOL 1% 20 ML VIAL IVP ONE (05:41)
[2017-06-02] MEDS ORDERED: LIDOCAINE HCL/PF 2% 5 ML VIAL INJ ONE (05:41)
[2017-06-02] MEDS ORDERED: ONDANSETRON HCL 4 MG/2 ML VIAL IVP ONE (05:41)
[2017-06-02] MEDS ORDERED: METOCLOPRAMIDE HCL 5 MG/ML 2 ML VIAL IVP ONE (05:41)
[2017-06-02] MEDS ORDERED: FentaNYL CITRATE-PF 100 MCG/2 ML VIAL IVP ONE (05:41)
[2017-06-02] MEDS: LORazepam 0.5 MG TABLET PO SCH ×4 (06:00→23:36)
[2017-06-02] MEDS: OXYGEN THERAPY IH SCH ×2 (08:09→20:37)
[2017-06-02] MEDS: SEVELAMER CARBONATE 800 MG TABLET PO SCH ×3 (08:10→17:28)
[2017-06-02] MEDS: CLOPIDOGREL BISULFATE 75 MG TABLET PO SCH ×2 (08:10→12:18)
[2017-06-02] MEDS: CINACALCET HCL 30 MG TABLET PO SCH (08:10)
[2017-06-02] MEDS: PANTOPRAZOLE SODIUM 40 MG/VIAL IVP SCH ×2 (08:10→08:42)
[2017-06-02] MEDS: HEPARIN SODIUM,PORCINE 5,000 UNITS/ML VIAL SQ SCH ×2 (08:10→17:28)
[2017-06-02] MEDS: DOCUSATE SODIUM 100 MG CAPSULE PO SCH ×2 (08:10→20:37)
[2017-06-02] MEDS: ATORVASTATIN CALCIUM 40 MG TABLET PO SCH (08:11)
[2017-06-02] MEDS: LOSARTAN POTASSIUM 25 MG TABLET PO SCH (08:11)
[2017-06-02] MEDS: METOPROLOL TARTRATE 25 MG TABLET PO SCH (08:11)
[2017-06-02] MEDS: SERTRALINE HCL 50 MG TABLET PO SCH (08:11)
[2017-06-02] MEDS ORDERED: EPOETIN ALFA 10,000 UNITS/ML VIAL SQ SCH (09:00)
[2017-06-02] MEDS ORDERED: AMIODARONE HCL 200 MG TABLET PO SCH (16:00)
[2017-06-02] MEDS: OxyCODONE HCL/ACETAMINOPHEN 5-325 MG TABLET PO PRN (20:37)
[2017-06-03 00:38] VITALS: BP 104/52
[2017-06-03 03:38] LABS: GLUCOMETER DEV NAME(LOC) 5S 1L; GLUCOSE,POINT OF CARE 103 MG/DL (70-110)
[2017-06-03 03:39] LABS: GLUCOMETER DEV NAME(LOC) 5S 1L; GLUCOSE,POINT OF CARE 99 MG/DL (70-110)
[2017-06-03] MEDS: LORazepam 0.5 MG TABLET PO SCH ×3 (05:17→18:00)
[2017-06-03 05:32] VITALS: BP 115/61
[2017-06-03 07:33] LABS: BASOPHILS % (AUTO) 0.6 % (0.0-2.0); EOSINOPHILS % (AUTO) 3.3 % (1.0-6.0); HEMATOCRIT 24.8 % (36-46); HEMOGLOBIN 8.3 g/dL (12.0-16.0); LYMPHOCYTES # (AUTO) 1.7 K/uL (1.0-4.8); LYMPHOCYTES % (AUTO) 23.9 % (22.0-44.0); MEAN CORPUSCULAR HEMOGLOBIN 33.3 pg (26.0-34.0); MEAN CORPUSCULAR HGB CONC 33.7 G/dL (31.0-37.0); MEAN CORPUSCULAR VOLUME 99 fL (80-100); MONOCYTES # (AUTO) 0.5 K/uL (0.1-1.0); MONOCYTES % (AUTO) 6.8 % (2.0-9.0); NEUTROPHILS # (AUTO) 4.6 K/uL (1.8-7.7); NEUTROPHILS % (AUTO) 65.4 % (40.0-70.0); PLATELET COUNT (AUTO) 145 K/uL (150-450); RED BLOOD CELL COUNT(AUTO) 2.51 MIL/uL (4.00-5.20); RED CELL DISTRIBUTION WIDTH 15.5 % (11.5-14.5)
[2017-06-03 07:54] VITALS: BP 157/72
[2017-06-03] MEDS: SEVELAMER CARBONATE 800 MG TABLET PO SCH ×3 (08:00→18:00)
[2017-06-03] MEDS: OXYGEN THERAPY IH SCH (08:00)
[2017-06-03] MEDS: CINACALCET HCL 30 MG TABLET PO SCH (08:00)
[2017-06-03] MEDS: DOCUSATE SODIUM 100 MG CAPSULE PO SCH (08:33)
[2017-06-03] MEDS: PANTOPRAZOLE SODIUM 40 MG/VIAL IVP SCH (08:33)
[2017-06-03] MEDS: SERTRALINE HCL 50 MG TABLET PO SCH (08:34)
[2017-06-03] MEDS: ATORVASTATIN CALCIUM 40 MG TABLET PO SCH (08:34)
[2017-06-03] MEDS: METOPROLOL TARTRATE 25 MG TABLET PO SCH (08:34)
[2017-06-03] MEDS: LOSARTAN POTASSIUM 25 MG TABLET PO SCH (08:34)
[2017-06-03] MEDS ORDERED: LIDOCAINE HCL/PF 1% 30 ML VIAL ONE (09:08)
[2017-06-03] MEDS ORDERED: HEPARIN SODIUM,PORCINE 1,000 UNITS/ML 10 ML VIAL ONE (09:08)
[2017-06-03] MEDS ORDERED: HEPARIN SODIUM 1000 UNITS/NS 500 ML ONE (09:08)
[2017-06-03] MEDS ORDERED: FentaNYL CITRATE-PF 100 MCG/2 ML VIAL ONE (09:20)
[2017-06-03] MEDS ORDERED: MIDAZOLAM HCL 2 MG/2 ML VIAL ONE ×2 (09:20→10:12)
[2017-06-03] MEDS ORDERED: FentaNYL CITRATE-PF 100 MCG/2 ML VIAL IVP ONE (10:16)
[2017-06-03] MEDS ORDERED: MIDAZOLAM HCL 2 MG/2 ML VIAL IVP ONE (10:16)
[2017-06-03 11:37] VITALS: BP 141/42
[2017-06-03 15:57] VITALS: BP 132/61
[2017-06-03 16:38] LABS: GLUCOMETER DEV NAME(LOC) 5S 2N; GLUCOSE,POINT OF CARE 111 MG/DL (70-110)
[2017-06-03 16:38] LABS: GLUCOMETER DEV NAME(LOC) 5S 2N; GLUCOSE,POINT OF CARE 99 MG/DL (70-110)
[2017-06-03 16:38] LABS: GLUCOMETER DEV NAME(LOC) 5S 2N; GLUCOSE,POINT OF CARE 92 MG/DL (70-110)
[2017-06-03 16:38] LABS: GLUCOMETER DEV NAME(LOC) 5S 2N; GLUCOSE,POINT OF CARE 90 MG/DL (70-110)
[2017-06-03 20:19] VITALS: BP 133/45
[2017-06-03] MEDS ORDERED: HEPARIN SODIUM,PORCINE 1,000 UNITS/ML VIAL IVP ONE (21:17)
[2017-06-03] MEDS ORDERED: DiphenhydrAMINE HCL 50 MG/ML VIAL IVP ONE (21:17)
[2017-06-04 19:22] LABS: GLUCOMETER DEV NAME(LOC) 5S 2N; GLUCOSE,POINT OF CARE 117 MG/DL (70-110)
== END 2017-06-03 21:18 | disposition home or self-care (01) | DRG 907 ==
LOC: EMS 15:23 → AHU 17:27 → 5N 05-30 17:27 → 5S 05-31 08:30
PROVIDERS: ADMIT Hospitalist; ATTEND Hospitalist
PROC: 5A1D70Z Performance of Urinary Filtration, Intermittent, Less than 6 Hours Per Day (ICD-10-PCS; 2017-05-31)
PROC: 0XP73YZ Removal of Other Device from Left Upper Extremity, Percutaneous Approach (ICD-10-PCS; 2017-06-01)
PROC: 5A1D70Z Performance of Urinary Filtration, Intermittent, Less than 6 Hours Per Day (ICD-10-PCS; 2017-06-01)
PROC: 03LY3ZZ Occlusion of Upper Artery, Percutaneous Approach (ICD-10-PCS; principal; 2017-06-01 10:00)
PROC: 5A1D70Z Performance of Urinary Filtration, Intermittent, Less than 6 Hours Per Day (ICD-10-PCS; 2017-06-03)
PROC: 0JH63XZ Insertion of Tunneled Vascular Access Device into Chest Subcutaneous Tissue and Fascia, Percutaneous Approach (ICD-10-PCS; 2017-06-03)
PROC: 05HM33Z Insertion of Infusion Device into Right Internal Jugular Vein, Percutaneous Approach (ICD-10-PCS; 2017-06-03)
PROC: B513ZZA Fluoroscopy of Right Jugular Veins, Guidance (ICD-10-PCS; 2017-06-03)
DX: T85.838A Hemorrhage due to other internal prosthetic devices, implants and grafts, initial encounter (principal); N18.6 End stage renal disease; I13.2 Hypertensive heart and chronic kidney disease with heart failure and with stage 5 chronic kidney disease, or end stage renal disease; E11.21 Type 2 diabetes mellitus with diabetic nephropathy; I95.9 Hypotension, unspecified; E66.01 Morbid (severe) obesity due to excess calories; E11.22 Type 2 diabetes mellitus with diabetic chronic kidney disease; I50.9 Heart failure, unspecified; T82.7XXA Infection and inflammatory reaction due to other cardiac and vascular devices, implants and grafts, initial encounter; Z68.41 Body mass index [BMI] 40.0-44.9, adult; L03.90 Cellulitis, unspecified; I48.91 Unspecified atrial fibrillation; D64.9 Anemia, unspecified; G47.33 Obstructive sleep apnea (adult) (pediatric); E78.5 Hyperlipidemia, unspecified; Y83.2 Surgical operation with anastomosis, bypass or graft as the cause of abnormal reaction of the patient, or of later complication, without mention of misadventure at the time of the procedure; I25.10 Atherosclerotic heart disease of native coronary artery without angina pectoris; Z90.49 Acquired absence of other specified parts of digestive tract; Z90.710 Acquired absence of both cervix and uterus; I25.2 Old myocardial infarction; Z79.899 Other long term (current) drug therapy; Z99.2 Dependence on renal dialysis; Z95.1 Presence of aortocoronary bypass graft; Z88.0 Allergy status to penicillin; J45.909 Unspecified asthma, uncomplicated
CPT/HCPCS: 36245; 36561; 82962; 83735; 84100; 85014; 85018; 86850; 86900; 86901; 86920; 87040; 87070; 87081; 87205; 87340; 90935; 93005; 96365; 96366; 96368; 99285; C9113; J0690; J0885; J1200; J1644; J2250; J2270; J2405; J2597; J2704; J2765; J3010; J3370; J3490; J7030; J7050

== ENCOUNTER 2017-10-03 20:25 | Emergency (ER) | payer MEDICARE, MEDICAID ==
[~2017-10-03] VITALS: Ht 172.7 cm; Wt 119.0 kg
[~2017-10-03 20:25] MED LIST changes: -CLOP75 PO; -[UNRECOGNIZED DRUG - CODE] OS
[2017-10-03 20:57] LABS: GLUCOSE,POINT OF CARE 92 MG/DL (70-110)
[2017-10-03] MEDS ORDERED: AZITHROMYCIN 250 MG TABLET PO ONE (22:15)
[2017-10-03 22:29] VITALS: BP 140/70
== END 2017-10-03 22:32 | disposition home or self-care (01) ==
LOC: EMS 20:26
DX: H00.022 Hordeolum internum right lower eyelid (principal); I11.0 Hypertensive heart disease with heart failure; I50.9 Heart failure, unspecified; J44.9 Chronic obstructive pulmonary disease, unspecified; I25.10 Atherosclerotic heart disease of native coronary artery without angina pectoris; I25.2 Old myocardial infarction; Z88.0 Allergy status to penicillin; Z90.49 Acquired absence of other specified parts of digestive tract; Z90.710 Acquired absence of both cervix and uterus
CPT/HCPCS: 82962; 99282; 99283

== ENCOUNTER 2017-12-12 23:20 | Emergency (ER) | payer MEDICARE, MEDICAID ==
[~2017-12-12] VITALS: Ht 172.7 cm; Wt 119.0 kg
[2017-12-12 23:58] LABS: GLUCOSE,POINT OF CARE 227 MG/DL (70-110)
[2017-12-13] MEDS ORDERED: KETOROLAC TROMETHAMINE 60 MG/2 ML VIAL IM ONE (02:30)
[2017-12-13] MEDS ORDERED: SULFAMETHOX/TRIMETH DS 800-160 MG/TABLET PO ONE (02:30)
[2017-12-13] MEDS ORDERED: LIDOCAINE HCL/PF 1% 2 ML VIAL IM ONE (02:45)
[2017-12-13 03:00] VITALS: BP 101/63
[2017-12-13] MEDS ORDERED: PERTUSS(ACELL),DIPH,TET VAC/PF 0.5 ML VIAL IM ONE (03:00)
== END 2017-12-13 03:04 | disposition home or self-care (01) ==
LOC: EMS 23:22
DX: S80.02XA Contusion of left knee, initial encounter (principal); L03.116 Cellulitis of left lower limb; I13.2 Hypertensive heart and chronic kidney disease with heart failure and with stage 5 chronic kidney disease, or end stage renal disease; E11.22 Type 2 diabetes mellitus with diabetic chronic kidney disease; N18.6 End stage renal disease; I50.9 Heart failure, unspecified; I25.10 Atherosclerotic heart disease of native coronary artery without angina pectoris; I25.2 Old myocardial infarction; J44.9 Chronic obstructive pulmonary disease, unspecified; J45.909 Unspecified asthma, uncomplicated; Z99.2 Dependence on renal dialysis; Z88.0 Allergy status to penicillin; Z79.4 Long term (current) use of insulin; W19.XXXA Unspecified fall, initial encounter; Y93.89 Activity, other specified; Y92.89 Other specified places as the place of occurrence of the external cause; Y99.8 Other external cause status
CPT/HCPCS: 82962; 90471; 90715; 96372; 99284; J0690; J1885; J3490

== ENCOUNTER 2017-12-15 20:42 | Emergency (ER) | payer MEDICARE, MEDICAID ==
[~2017-12-15] VITALS: Ht 170.2 cm; Wt 119.6 kg
[~2017-12-15 20:42] MED LIST changes: -OXYC-158 PO; -SERT50TA12 PO
[2017-12-15 22:54] VITALS: BP 118/64
== END 2017-12-15 22:56 | disposition home or self-care (01) ==
LOC: EMS 20:44
DX: S09.90XA Unspecified injury of head, initial encounter (principal); I11.0 Hypertensive heart disease with heart failure; I50.9 Heart failure, unspecified; I25.10 Atherosclerotic heart disease of native coronary artery without angina pectoris; J44.9 Chronic obstructive pulmonary disease, unspecified; J45.909 Unspecified asthma, uncomplicated; I25.2 Old myocardial infarction; Z88.0 Allergy status to penicillin; W18.39XA Other fall on same level, initial encounter; Y93.89 Activity, other specified; Y92.89 Other specified places as the place of occurrence of the external cause; Y99.8 Other external cause status
CPT/HCPCS: 70450; 99284

== ENCOUNTER 2018-04-29 09:11 | Emergency (ER) | payer MEDICARE, MEDICAID ==
[~2018-04-29] VITALS: Ht 172.7 cm; Wt 119.5 kg
[~2018-04-29 09:11] MED LIST changes: +LOSA25TA16 PO; -LOSA25TA21 PO
[2018-04-29 09:23] LABS: GLUCOSE,POINT OF CARE 162 MG/DL (70-110)
[2018-04-29 10:20] VITALS: BP 112/69
== END 2018-04-29 10:40 | disposition home or self-care (01) ==
LOC: EMS 09:13
DX: T81.30XA Disruption of wound, unspecified, initial encounter (principal); F41.9 Anxiety disorder, unspecified; J45.909 Unspecified asthma, uncomplicated; I25.10 Atherosclerotic heart disease of native coronary artery without angina pectoris; I13.2 Hypertensive heart and chronic kidney disease with heart failure and with stage 5 chronic kidney disease, or end stage renal disease; E11.22 Type 2 diabetes mellitus with diabetic chronic kidney disease; N18.6 End stage renal disease; I50.9 Heart failure, unspecified; I25.2 Old myocardial infarction; Z99.2 Dependence on renal dialysis; Z79.4 Long term (current) use of insulin; Z90.710 Acquired absence of both cervix and uterus; Z90.49 Acquired absence of other specified parts of digestive tract; Z88.0 Allergy status to penicillin

== ENCOUNTER 2018-07-09 08:26 | Emergency (ER) | payer MEDICARE, MEDICAID ==
[~2018-07-09] VITALS: Ht 172.7 cm; Wt 116.4 kg
[~2018-07-09 08:26] MED LIST changes: -LOSA25TA16 PO; +LOSA25TA41 PO
[2018-07-09 08:49] LABS: GLUCOSE,POINT OF CARE 106 MG/DL (70-110)
[2018-07-09] MEDS ORDERED: HYDROCODONE/ACETAMINOPHEN 5-325 MG TABLET PO ONE (09:15)
[2018-07-09 09:42] LABS: BASOPHILS % (AUTO) 0.9 % (0.0-2.0); EOSINOPHILS % (AUTO) 1.9 % (1.0-6.0); HEMATOCRIT 35.6 % (36-46); HEMOGLOBIN 12.2 g/dL (12.0-16.0); LYMPHOCYTES # (AUTO) 1.3 K/uL (1.0-4.8); LYMPHOCYTES % (AUTO) 16.9 % (22.0-44.0); MEAN CORPUSCULAR HEMOGLOBIN 33.3 pg (26.0-34.0); MEAN CORPUSCULAR HGB CONC 34.3 G/dL (31.0-37.0); MEAN CORPUSCULAR VOLUME 97 fL (80-100); MONOCYTES # (AUTO) 0.5 K/uL (0.1-1.0); NEUTROPHILS # (AUTO) 5.6 K/uL (1.8-7.7); NEUTROPHILS % (AUTO) 74.3 % (40.0-70.0); PLATELET COUNT (AUTO) 143 K/uL (150-450); RED BLOOD CELL COUNT(AUTO) 3.65 MIL/uL (4.00-5.20); RED CELL DISTRIBUTION WIDTH 14.9 % (11.5-14.5)
[2018-07-09 09:50] LABS: CALCIUM, TOTAL 9.1 mg/dL (8.8-10.5); CREATININE 7.94 mg/dL (0.60-1.30); POTASSIUM 4.3 mmol/L (3.5-5.1)
[2018-07-09 09:56] LABS: ALBUMIN 3.6 g/dL (3.4-5.0); BILIRUBIN,TOTAL 0.5 mg/dL (0.1-1.0); TOTAL PROTEIN, SERUM 7.5 g/dL (6.4-8.2)
[2018-07-09 10:49] VITALS: BP 155/85
== END 2018-07-09 10:52 | disposition home or self-care (01) ==
LOC: EMS 08:27
DX: S00.03XA Contusion of scalp, initial encounter (principal); E11.9 Type 2 diabetes mellitus without complications; I11.0 Hypertensive heart disease with heart failure; I50.9 Heart failure, unspecified; I25.10 Atherosclerotic heart disease of native coronary artery without angina pectoris; I25.2 Old myocardial infarction; J44.9 Chronic obstructive pulmonary disease, unspecified; Z99.2 Dependence on renal dialysis; Z88.0 Allergy status to penicillin; Z79.899 Other long term (current) drug therapy; Z90.49 Acquired absence of other specified parts of digestive tract; Z90.710 Acquired absence of both cervix and uterus; W50.0XXA Accidental hit or strike by another person, initial encounter; Y93.89 Activity, other specified; Y92.89 Other specified places as the place of occurrence of the external cause; Y99.8 Other external cause status
CPT/HCPCS: 70450

== ENCOUNTER 2018-11-07 16:36 | Emergency (ER) | payer MEDICARE, MEDICAID ==
[~2018-11-07] VITALS: Ht 172.7 cm; Wt 118.4 kg
[~2018-11-07 16:36] MED LIST changes: -TEMA15CA PO
[2018-11-07] MEDS ORDERED: ALBUTEROL SULFATE 2.5 MG/0.5 ML NEB SOLUTION NEB ONE (16:45)
[2018-11-07] MEDS ORDERED: ASPIRIN 81 MG CHEWABLE TABLET PO ONE (16:45)
[2018-11-07] MEDS ORDERED: IPRATROPIUM BROMIDE 0.5 MG/2.5 ML NEB SOLUTION NEB ONE (16:45)
[2018-11-07] MEDS ORDERED: PredniSONE 20 MG TABLET PO ONE (16:45)
[2018-11-07 17:04] LABS: GLUCOSE,POINT OF CARE 92 MG/DL (70-110)
[2018-11-07 17:09] LABS: EOSINOPHILS % (AUTO) 1.9 % (1.0-6.0); HEMATOCRIT 36.2 % (36-46); HEMOGLOBIN 12.1 g/dL (12.0-16.0); LYMPHOCYTES # (AUTO) 1.8 K/uL (1.0-4.8); LYMPHOCYTES % (AUTO) 24.9 % (22.0-44.0); MEAN CORPUSCULAR HEMOGLOBIN 33.5 pg (26.0-34.0); MEAN CORPUSCULAR HGB CONC 33.4 G/dL (31.0-37.0); MEAN CORPUSCULAR VOLUME 100 fL (80-100); MONOCYTES # (AUTO) 0.4 K/uL (0.1-1.0); MONOCYTES % (AUTO) 5.1 % (2.0-9.0); NEUTROPHILS # (AUTO) 4.9 K/uL (1.8-7.7); NEUTROPHILS % (AUTO) 67.1 % (40.0-70.0); PLATELET COUNT (AUTO) 140 K/uL (150-450)
[2018-11-07 17:21] LABS: CALCIUM, TOTAL 9.4 mg/dL (8.8-10.5); CREATININE 8.37 mg/dL (0.60-1.30); POTASSIUM 5.4 mmol/L (3.5-5.1)
[2018-11-07 17:26] LABS: PLATELET MORPHOLOGY COMMENT NORMAL
[2018-11-07 17:27] LABS: ALBUMIN 3.8 g/dL (3.4-5.0); BILIRUBIN,TOTAL 0.5 mg/dL (0.1-1.0); TOTAL PROTEIN, SERUM 7.4 g/dL (6.4-8.2)
[2018-11-07] MEDS ORDERED: FUROSEMIDE 40 MG/4 ML VIAL IVP ONE (18:00)
[2018-11-07 18:30] VITALS: BP 152/77
[2018-11-07] MEDS ORDERED: SODIUM POLYSTYRENE SULFONATE 15 GM/60 ML SUSPENSION BOTTLE PO ONE (18:45)
== END 2018-11-07 19:07 | disposition home or self-care (01) ==
LOC: EMS 16:41
DX: J98.01 Acute bronchospasm (principal); J81.1 Chronic pulmonary edema; E87.5 Hyperkalemia; I13.2 Hypertensive heart and chronic kidney disease with heart failure and with stage 5 chronic kidney disease, or end stage renal disease; E11.22 Type 2 diabetes mellitus with diabetic chronic kidney disease; N18.6 End stage renal disease; I50.9 Heart failure, unspecified; J45.909 Unspecified asthma, uncomplicated; I25.10 Atherosclerotic heart disease of native coronary artery without angina pectoris; I25.2 Old myocardial infarction; Z99.2 Dependence on renal dialysis; Z90.710 Acquired absence of both cervix and uterus; Z90.49 Acquired absence of other specified parts of digestive tract; Z79.4 Long term (current) use of insulin; Z88.0 Allergy status to penicillin
CPT/HCPCS: 71045; 80053; 82550; 82962; 83880; 84484; 85025; 93005; 94640; 96374; 99285; J1940; J7512

== ENCOUNTER 2019-02-28 08:36 | Emergency (ER) | payer MEDICARE, MEDICAID ==
[~2019-02-28] VITALS: Ht 172.7 cm; Wt 115.9 kg
[~2019-02-28 08:36] MED LIST changes: +LORA-999 PO; -LORA0.5T2 PO; +SEVE800T17 PO; -SEVEC800 PO
[2019-02-28] MEDS ORDERED: ZOLP5 PO (09:02)
[2019-02-28] MEDS ORDERED: ASPI81 PO (09:05)
[2019-02-28 09:20] LABS: GLUCOSE,POINT OF CARE 98 MG/DL (70-110)
[2019-02-28] MEDS ORDERED: ACETAMINOPHEN 500 MG TABLET PO ONE (09:45)
[2019-02-28 10:48] VITALS: BP 158/79
== END 2019-02-28 11:00 | disposition home or self-care (01) ==
LOC: EMS 08:38
DX: S00.93XA Contusion of unspecified part of head, initial encounter (principal); I11.0 Hypertensive heart disease with heart failure; I50.9 Heart failure, unspecified; E11.9 Type 2 diabetes mellitus without complications; J44.9 Chronic obstructive pulmonary disease, unspecified; I25.10 Atherosclerotic heart disease of native coronary artery without angina pectoris; I25.2 Old myocardial infarction; Z90.710 Acquired absence of both cervix and uterus; Z90.89 Acquired absence of other organs; Z88.0 Allergy status to penicillin; Z79.4 Long term (current) use of insulin; Z79.82 Long term (current) use of aspirin; W01.0XXA Fall on same level from slipping, tripping and stumbling without subsequent striking against object, initial encounter; Y93.89 Activity, other specified; Y92.89 Other specified places as the place of occurrence of the external cause; Y99.8 Other external cause status
CPT/HCPCS: 70450

== ENCOUNTER 2019-03-20 17:53 | Inpatient (IN) | payer MEDICARE, MEDICAID ==
[~2019-03-20] VITALS: Ht 167.6 cm; Wt 117.7 kg
[~2019-03-20 17:53] MED LIST changes: +ASPI81 PO; +DiphenhydrAMINE HCL 50 MG/ML VIAL IVP ONE; -LORA-999 PO; -METO25 PO; +ZOLP5 PO
[2019-03-20 18:25] LABS: BASOPHILS % (AUTO) 0.8 % (0.0-2.0); EOSINOPHILS % (AUTO) 1.8 % (1.0-6.0); HEMATOCRIT 28.4 % (36-46); HEMOGLOBIN 9.6 g/dL (12.0-16.0); LYMPHOCYTES # (AUTO) 1.7 K/uL (1.0-4.8); LYMPHOCYTES % (AUTO) 23.5 % (22.0-44.0); MEAN CORPUSCULAR HEMOGLOBIN 34.5 pg (26.0-34.0); MEAN CORPUSCULAR VOLUME 102 fL (80-100); MONOCYTES # (AUTO) 0.4 K/uL (0.1-1.0); MONOCYTES % (AUTO) 5.8 % (2.0-9.0); NEUTROPHILS # (AUTO) 4.8 K/uL (1.8-7.7); NEUTROPHILS % (AUTO) 68.1 % (40.0-70.0); PLATELET COUNT (AUTO) 155 K/uL (150-450); RED BLOOD CELL COUNT(AUTO) 2.79 MIL/uL (4.00-5.20); RED CELL DISTRIBUTION WIDTH 14.4 % (11.5-14.5)
[2019-03-20 18:32] LABS: INR 1.1 (0.9-1.1); PROTHROMBIN TIME 10.8 SEC (9.4-11.6)
[2019-03-20 18:35] LABS: CALCIUM, TOTAL 8.1 mg/dL (8.8-10.5); CREATININE 7.99 mg/dL (0.60-1.30); POTASSIUM 5.8 mmol/L (3.5-5.1)
[2019-03-20] MEDS ORDERED: DEXTROSE 50%-WATER 25 GM/50 ML SYRINGE IVP ONE (19:00)
[2019-03-20] MEDS ORDERED: ALBUTEROL SULFATE 5 MG/ML 20 ML NEB SOLN [BULK] NEB ONE (19:00)
[2019-03-20] MEDS ORDERED: INSULIN REGULAR, HUMAN 100 UNITS/ML IVP ONE (19:00)
[2019-03-20 19:01] LABS: ALBUMIN 3.4 g/dL (3.4-5.0); BILIRUBIN,TOTAL 0.4 mg/dL (0.1-1.0); MAGNESIUM 1.9 mg/dL (1.80-2.40); TOTAL PROTEIN, SERUM 6.4 g/dL (6.4-8.2)
[2019-03-20] MEDS ORDERED: 0.9% SODIUM CHLORIDE 15 ML NEB SOLUTION NEB ONE (19:24)
[2019-03-20] MEDS ORDERED: 0.9% SODIUM CHLORIDE 10 ML SYRINGE IVP PRN (19:30)
[2019-03-20] MEDS ORDERED: ACETAMINOPHEN 325 MG TABLET PO PRN (19:30)
[2019-03-20] MEDS ORDERED: ONDANSETRON HCL 4 MG/2 ML VIAL IVP PRN ×2 (19:30→21:45)
[2019-03-20] MEDS ORDERED: ONDANSETRON HCL 4 MG/2 ML VIAL IVP ONE (20:00)
[2019-03-20] MEDS ORDERED: IPRATROPIUM BROMIDE 0.5 MG/2.5 ML NEB SOLUTION NEB PRN (21:45)
[2019-03-20] MEDS ORDERED: ALBUTEROL SULFATE 2.5 MG/0.5 ML NEB SOLUTION NEB PRN (21:45)
[2019-03-20] MEDS ORDERED: MAGNESIUM HYDROXIDE SUSPENSION 30 ML UDCUP PO PRN (21:45)
[2019-03-20] MEDS ORDERED: BISACODYL 10 MG RECTAL RECTAL SUPPOSITORY PR PRN (21:45)
[2019-03-20] MEDS ORDERED: MORPHINE SULFATE 2 MG/ML SYRINGE IVP PRN (21:45)
[2019-03-20] MEDS ORDERED: ZOLPIDEM TARTRATE 5 MG TABLET PO PRN ×2 (21:45)
[2019-03-20] MEDS ORDERED: SODIUM CHLORIDE 0.9% 250 ML IV ONE (21:53)
[2019-03-20] MEDS ORDERED: CefTRIAXone 1 GM/DEXTROSE 50 ML IV SCH (22:00)
[2019-03-20] MEDS: ACETAMINOPHEN 325 MG TABLET PO PRN (22:05)
[2019-03-20 22:30] VITALS: BP 137/67
[2019-03-20] MEDS: CefTRIAXone 1 GM/DEXTROSE 50 ML IV SCH (22:45)
[2019-03-20] MEDS: HYDROCODONE/ACETAMINOPHEN 5-325 MG TABLET PO PRN (23:43)
[2019-03-20] MEDS: HEPARIN SODIUM,PORCINE 5,000 UNITS/ML VIAL SQ SCH (23:44)
[2019-03-20] MEDS: AZITHROMYCIN 500 MG/NS 250 ML IV SCH (23:45)
[2019-03-20 23:58] VITALS: BP 113/45
[2019-03-21 04:36] VITALS: BP 124/53
[2019-03-21 07:00] LABS: BASOPHILS % (AUTO) 0.6 % (0.0-2.0); EOSINOPHILS % (AUTO) 1.3 % (1.0-6.0); HEMATOCRIT 28.8 % (36-46); HEMOGLOBIN 9.8 g/dL (12.0-16.0); LYMPHOCYTES # (AUTO) 1.8 K/uL (1.0-4.8); LYMPHOCYTES % (AUTO) 23.4 % (22.0-44.0); MEAN CORPUSCULAR HEMOGLOBIN 34.7 pg (26.0-34.0); MEAN CORPUSCULAR VOLUME 102 fL (80-100); MONOCYTES # (AUTO) 0.5 K/uL (0.1-1.0); MONOCYTES % (AUTO) 6.8 % (2.0-9.0); NEUTROPHILS # (AUTO) 5.2 K/uL (1.8-7.7); NEUTROPHILS % (AUTO) 67.9 % (40.0-70.0); PLATELET COUNT (AUTO) 124 K/uL (150-450); RED BLOOD CELL COUNT(AUTO) 2.82 MIL/uL (4.00-5.20); RED CELL DISTRIBUTION WIDTH 14.4 % (11.5-14.5)
[2019-03-21 07:24] LABS: ALBUMIN 3.3 g/dL (3.4-5.0); BILIRUBIN,TOTAL 0.5 mg/dL (0.1-1.0); CALCIUM, TOTAL 8.3 mg/dL (8.8-10.5); CREATININE 8.67 mg/dL (0.60-1.30); TOTAL PROTEIN, SERUM 6.6 g/dL (6.4-8.2)
[2019-03-21 07:57] LABS: POTASSIUM 6.4 mmol/L (3.5-5.1)
[2019-03-21] MEDS ORDERED: SEVELAMER CARBONATE 800 MG TABLET PO SCH (08:00)
[2019-03-21] MEDS: CINACALCET HCL 30 MG TABLET PO SCH (08:26)
[2019-03-21] MEDS: ASPIRIN 81 MG CHEWABLE TABLET PO SCH (08:26)
[2019-03-21] MEDS: DOCUSATE SODIUM 100 MG CAPSULE PO SCH ×2 (08:27→21:00)
[2019-03-21] MEDS: ATORVASTATIN CALCIUM 40 MG TABLET PO SCH (08:27)
[2019-03-21] MEDS: HEPARIN SODIUM,PORCINE 5,000 UNITS/ML VIAL SQ SCH ×3 (08:27→23:30)
[2019-03-21 08:30] VITALS: BP 119/53
[2019-03-21] MEDS ORDERED: SODIUM CHLORIDE 0.9% 1,000 ML IV ONE (09:08)
[2019-03-21] MEDS: SEVELAMER CARBONATE 800 MG TABLET PO SCH ×2 (12:16→18:46)
[2019-03-21] MEDS ORDERED: DiphenhydrAMINE HCL 50 MG/ML VIAL IVP ONE (13:59)
[2019-03-21] MEDS: HYDROCODONE/ACETAMINOPHEN 5-325 MG TABLET PO PRN ×2 (14:09→22:37)
[2019-03-21 14:48] VITALS: BP 114/30
[2019-03-21 19:43] VITALS: BP 96/77
[2019-03-21] MEDS ORDERED: LOSARTAN POTASSIUM 25 MG TABLET PO SCH (21:00)
[2019-03-21] MEDS: CefTRIAXone 1 GM/DEXTROSE 50 ML IV SCH (22:04)
[2019-03-21] MEDS: AZITHROMYCIN 500 MG/NS 250 ML IV SCH (23:29)
[2019-03-22 00:26] VITALS: BP 120/48
[2019-03-22] MEDS ORDERED: SODIUM CHLORIDE 0.9% 2,000 ML IV ONE (04:43)
[2019-03-22 04:51] VITALS: BP 117/63
[2019-03-22 07:14] LABS: BASOPHILS % (AUTO) 1.1 % (0.0-2.0); EOSINOPHILS % (AUTO) 1.9 % (1.0-6.0); HEMATOCRIT 28.7 % (36-46); HEMOGLOBIN 9.8 g/dL (12.0-16.0); LYMPHOCYTES # (AUTO) 1.4 K/uL (1.0-4.8); MEAN CORPUSCULAR HEMOGLOBIN 34.4 pg (26.0-34.0); MEAN CORPUSCULAR VOLUME 101 fL (80-100); MONOCYTES # (AUTO) 0.3 K/uL (0.1-1.0); MONOCYTES % (AUTO) 5.4 % (2.0-9.0); NEUTROPHILS % (AUTO) 67.6 % (40.0-70.0); PLATELET COUNT (AUTO) 127 K/uL (150-450); RED BLOOD CELL COUNT(AUTO) 2.84 MIL/uL (4.00-5.20)
[2019-03-22 07:41] LABS: ALBUMIN 3.6 g/dL (3.4-5.0); BILIRUBIN,TOTAL 0.3 mg/dL (0.1-1.0); CALCIUM, TOTAL 8.3 mg/dL (8.8-10.5); CREATININE 3.94 mg/dL (0.60-1.30); POTASSIUM 3.6 mmol/L (3.5-5.1); TOTAL PROTEIN, SERUM 6.9 g/dL (6.4-8.2)
[2019-03-22] MEDS: SEVELAMER CARBONATE 800 MG TABLET PO SCH ×2 (08:00→12:58)
[2019-03-22] MEDS: HEPARIN SODIUM,PORCINE 5,000 UNITS/ML VIAL SQ SCH (08:00)
[2019-03-22] MEDS: ATORVASTATIN CALCIUM 40 MG TABLET PO SCH (09:00)
[2019-03-22] MEDS: DOCUSATE SODIUM 100 MG CAPSULE PO SCH (09:00)
[2019-03-22] MEDS: ASPIRIN 81 MG CHEWABLE TABLET PO SCH (09:00)
[2019-03-22] MEDS: CINACALCET HCL 30 MG TABLET PO SCH (10:34)
[2019-03-22] MEDS: ACETAMINOPHEN 325 MG TABLET PO PRN (10:34)
[2019-03-22 11:24] VITALS: BP 104/95
[2019-03-22] MEDS ORDERED: LEVO750T21 PO (11:44)
[2019-03-22 11:46] LABS: GLUCOMETER DEV NAME(LOC) 5N.1; GLUCOSE,POINT OF CARE 116 MG/DL (70-110)
[2019-03-22 11:46] LABS: GLUCOMETER DEV NAME(LOC) 5N.1; GLUCOSE,POINT OF CARE 95 MG/DL (70-110)
== END 2019-03-22 14:00 | disposition home or self-care (01) | DRG 291 ==
LOC: EMS 17:53 → 5S 21:38
PROVIDERS: ADMIT Hospitalist; ATTEND Hospitalist
PROC: 5A1D70Z Performance of Urinary Filtration, Intermittent, Less than 6 Hours Per Day (ICD-10-PCS; principal; 2019-03-21)
PROC: 5A1D70Z Performance of Urinary Filtration, Intermittent, Less than 6 Hours Per Day (ICD-10-PCS; 2019-03-22)
DX: I13.2 Hypertensive heart and chronic kidney disease with heart failure and with stage 5 chronic kidney disease, or end stage renal disease (principal); N18.6 End stage renal disease; I50.33 Acute on chronic diastolic (congestive) heart failure; J18.9 Pneumonia, unspecified organism; Z68.41 Body mass index [BMI] 40.0-44.9, adult; E87.5 Hyperkalemia; J44.9 Chronic obstructive pulmonary disease, unspecified; E11.22 Type 2 diabetes mellitus with diabetic chronic kidney disease; I08.0 Rheumatic disorders of both mitral and aortic valves; I25.10 Atherosclerotic heart disease of native coronary artery without angina pectoris; I48.0 Paroxysmal atrial fibrillation; E66.9 Obesity, unspecified; Z82.49 Family history of ischemic heart disease and other diseases of the circulatory system; Z82.5 Family history of asthma and other chronic lower respiratory diseases; Z83.3 Family history of diabetes mellitus; Z90.710 Acquired absence of both cervix and uterus; Z91.11 Patient's noncompliance with dietary regimen; Z95.1 Presence of aortocoronary bypass graft; Z95.2 Presence of prosthetic heart valve; Z99.2 Dependence on renal dialysis
CPT/HCPCS: 83735; 87040; 87081; 87340; 93005; 94640; J0456; J0696; J1200; J1644; J1815; J2405; J7030; J7050

== ENCOUNTER 2019-05-17 23:06 | Inpatient (IN) | payer MEDICARE, MEDICAID ==
[~2019-05-17] VITALS: Ht 172.7 cm; Wt 115.5 kg
[~2019-05-17 23:06] MED LIST changes: -DiphenhydrAMINE HCL 50 MG/ML VIAL IVP ONE; +LEVO750T21 PO
[2019-05-17] MEDS ORDERED: NITR0.4T50 SL (23:20)
[2019-05-17] MEDS ORDERED: APIX5TAB PO (23:20)
[2019-05-17] MEDS ORDERED: AMIO200T5 PO (23:20)
[2019-05-17] MEDS ORDERED: DILT300C33 PO (23:20)
[2019-05-17 23:49] LABS: GLUCOSE,POINT OF CARE 127 MG/DL (70-110)
[2019-05-18 00:07] LABS: CALCIUM, TOTAL 8.9 mg/dL (8.8-10.5); CREATININE 6.11 mg/dL (0.60-1.30)
[2019-05-18 00:13] LABS: ALBUMIN 3.6 g/dL (3.4-5.0); BILIRUBIN,TOTAL 0.4 mg/dL (0.1-1.0); TOTAL PROTEIN, SERUM 7.1 g/dL (6.4-8.2)
[2019-05-18 00:20] LABS: BASOPHILS % (AUTO) 0.9 % (0.0-2.0); EOSINOPHILS % (AUTO) 1.3 % (1.0-6.0); HEMATOCRIT 32.7 % (36-46); HEMOGLOBIN 10.9 g/dL (12.0-16.0); LYMPHOCYTES # (AUTO) 1.3 K/uL (1.0-4.8); LYMPHOCYTES % (AUTO) 13.9 % (22.0-44.0); MEAN CORPUSCULAR HEMOGLOBIN 34.6 pg (26.0-34.0); MEAN CORPUSCULAR HGB CONC 33.3 G/dL (31.0-37.0); MEAN CORPUSCULAR VOLUME 104 fL (80-100); MONOCYTES # (AUTO) 0.5 K/uL (0.1-1.0); MONOCYTES % (AUTO) 5.3 % (2.0-9.0); NEUTROPHILS # (AUTO) 7.3 K/uL (1.8-7.7); NEUTROPHILS % (AUTO) 78.6 % (40.0-70.0); PLATELET COUNT (AUTO) 172 K/uL (150-450); RED BLOOD CELL COUNT(AUTO) 3.15 MIL/uL (4.00-5.20); RED CELL DISTRIBUTION WIDTH 14.8 % (11.5-14.5)
[2019-05-18] MEDS ORDERED: INSULIN REGULAR, HUMAN 100 UNITS/ML IVP ONE (00:30)
[2019-05-18] MEDS ORDERED: ONDANSETRON HCL 4 MG/2 ML VIAL IVP ONE (00:30)
[2019-05-18] MEDS ORDERED: DEXTROSE 50%-WATER 25 GM/50 ML SYRINGE IVP ONE (00:30)
[2019-05-18] MEDS ORDERED: SODIUM BICARBONATE [ADULT] 8.4% 50 MEQ/50 ML SYRINGE IVP ONE (00:30)
[2019-05-18] MEDS ORDERED: CALCIUM GLUCONATE 100 MG/ML 10 ML IVP ONE (00:30)
[2019-05-18 00:34] LABS: INR 1.1 (0.9-1.1); PROTHROMBIN TIME 10.8 SEC (9.4-11.6)
[2019-05-18] MEDS: OXYGEN THERAPY IH SCH ×2 (01:00→10:58)
[2019-05-18] MEDS ORDERED: 0.9% SODIUM CHLORIDE 10 ML SYRINGE IVP PRN (01:00)
[2019-05-18] MEDS ORDERED: SODIUM POLYSTYRENE SULFONATE 15 GM/60 ML SUSPENSION BOTTLE PO ONE (01:00)
[2019-05-18] MEDS ORDERED: ONDANSETRON HCL 4 MG/2 ML VIAL IVP PRN ×2 (01:00→03:00)
[2019-05-18] MEDS ORDERED: ACETAMINOPHEN 325 MG TABLET PO PRN ×2 (01:00→03:00)
[2019-05-18] MEDS ORDERED: DiphenhydrAMINE HCL 50 MG/ML VIAL IVP ONE (01:45)
[2019-05-18 02:42] VITALS: BP 118/64
[2019-05-18] MEDS ORDERED: IPRATROPIUM BROMIDE 0.5 MG/2.5 ML NEB SOLUTION NEB PRN (03:00)
[2019-05-18] MEDS ORDERED: MAGNESIUM HYDROXIDE SUSPENSION 30 ML UDCUP PO PRN (03:00)
[2019-05-18] MEDS ORDERED: ZOLPIDEM TARTRATE 5 MG TABLET PO PRN (03:00)
[2019-05-18] MEDS ORDERED: MORPHINE SULFATE 2 MG/ML SYRINGE IVP PRN (03:00)
[2019-05-18] MEDS ORDERED: ZOLPIDEM TARTRATE 10 MG TABLET PO PRN (03:00)
[2019-05-18] MEDS ORDERED: PNEUMOCOCCAL VACCINE POLYVALENT 0.5 ML VIAL [PPSV23] IM ONE (04:30)
[2019-05-18] MEDS: MethylPREDNISolone SOD SUCC 125 MG/2 ML VIAL IVP SCH ×4 (05:47→23:56)
[2019-05-18] MEDS: NITROGLYCERIN 2% (1 GM=INCH) PACKET TP SCH ×4 (05:51→23:55)
[2019-05-18] MEDS ORDERED: DEXTROSE 50%-WATER 25 GM/50 ML SYRINGE IVP PRN (06:30)
[2019-05-18] MEDS: INSULIN LISPRO 100 UNITS/ML SQ PRN ×4 (06:45→21:36)
[2019-05-18] MEDS: SEVELAMER CARBONATE 800 MG TABLET PO SCH ×3 (08:00→17:50)
[2019-05-18] MEDS: IPRATROPIUM BROMIDE 0.5 MG/2.5 ML NEB SOLUTION NEB SCH ×2 (08:00→14:00)
[2019-05-18] MEDS: ALBUTEROL SULFATE 2.5 MG/0.5 ML NEB SOLUTION NEB SCH ×2 (08:00→14:00)
[2019-05-18 08:38] VITALS: BP 147/38
[2019-05-18] MEDS: DOCUSATE SODIUM 100 MG CAPSULE PO SCH ×2 (09:00→21:00)
[2019-05-18] MEDS ORDERED: ASPIRIN 81 MG CHEWABLE TABLET PO SCH (09:00)
[2019-05-18] MEDS ORDERED: DILTIAZEM HCL CD 300 MG ER CAPSULE PO SCH (09:00)
[2019-05-18] MEDS: APIXABAN 5 MG TABLET PO SCH ×2 (10:56→21:29)
[2019-05-18] MEDS: AMIODARONE HCL 200 MG TABLET PO SCH ×2 (10:56→21:29)
[2019-05-18] MEDS: CINACALCET HCL 30 MG TABLET PO SCH (10:57)
[2019-05-18] MEDS: DILTIAZEM HCL CD 120 MG ER CAPSULE PO SCH (10:57)
[2019-05-18] MEDS: ASPIRIN 81 MG CHEWABLE TABLET PO SCH (10:57)
[2019-05-18] MEDS: ATORVASTATIN CALCIUM 40 MG TABLET PO SCH (10:57)
[2019-05-18] MEDS: DILTIAZEM HCL CD 180 MG ER CAPSULE PO SCH (10:57)
[2019-05-18] MEDS: HYDROCODONE/ACETAMINOPHEN 5-325 MG TABLET PO PRN ×2 (11:40→15:52)
[2019-05-18] MEDS ORDERED: ALPRAZolam 0.5 MG TABLET PO PRN (11:45)
[2019-05-18 11:54] VITALS: BP 139/71
[2019-05-18 12:40] LABS: GLUCOMETER DEV NAME(LOC) 5N.1; GLUCOSE,POINT OF CARE 159 MG/DL (70-110)
[2019-05-18 12:40] LABS: GLUCOMETER DEV NAME(LOC) 5N.1; GLUCOSE,POINT OF CARE 75 MG/DL (70-110)
[2019-05-18 12:40] LABS: GLUCOMETER DEV NAME(LOC) 5S.1; GLUCOSE,POINT OF CARE 179 MG/DL (70-110)
[2019-05-18 16:05] VITALS: BP 143/70
[2019-05-18 20:10] LABS: GLUCOMETER DEV NAME(LOC) 5S.1; GLUCOSE,POINT OF CARE 216 MG/DL (70-110)
[2019-05-18 20:55] VITALS: BP 135/71
[2019-05-18 22:17] LABS: GLUCOMETER DEV NAME(LOC) 5N.1; GLUCOSE,POINT OF CARE 245 MG/DL (70-110)
[2019-05-19 00:35] VITALS: BP 140/70
[2019-05-19 04:25] VITALS: BP 156/71
[2019-05-19] MEDS: NITROGLYCERIN 2% (1 GM=INCH) PACKET TP SCH (05:58)
[2019-05-19] MEDS: HYDROCODONE/ACETAMINOPHEN 5-325 MG TABLET PO PRN (05:59)
[2019-05-19] MEDS: MethylPREDNISolone SOD SUCC 125 MG/2 ML VIAL IVP SCH (05:59)
[2019-05-19] MEDS: INSULIN LISPRO 100 UNITS/ML SQ PRN (06:01)
[2019-05-19 07:14] LABS: GLUCOMETER DEV NAME(LOC) 5S.1; GLUCOSE,POINT OF CARE 240 MG/DL (70-110)
[2019-05-19 07:23] LABS: CALCIUM, TOTAL 8.9 mg/dL (8.8-10.5); CHOL/HDL RATIO 2.7 (3.9-5.7); CREATININE 5.56 mg/dL (0.60-1.30); MAGNESIUM 1.8 mg/dL (1.80-2.40); PHOSPHORUS 4.9 mg/dL (2.5-4.9); POTASSIUM 5.3 mmol/L (3.5-5.1)
[2019-05-19] MEDS: OXYGEN THERAPY IH SCH ×2 (07:47→08:00)
[2019-05-19] MEDS: DOCUSATE SODIUM 100 MG CAPSULE PO SCH (07:48)
[2019-05-19] MEDS: APIXABAN 5 MG TABLET PO SCH (07:49)
[2019-05-19] MEDS: ATORVASTATIN CALCIUM 40 MG TABLET PO SCH (07:49)
[2019-05-19] MEDS: ASPIRIN 81 MG CHEWABLE TABLET PO SCH (07:49)
[2019-05-19] MEDS: CINACALCET HCL 30 MG TABLET PO SCH (07:49)
[2019-05-19] MEDS: SEVELAMER CARBONATE 800 MG TABLET PO SCH (07:49)
[2019-05-19] MEDS: AMIODARONE HCL 200 MG TABLET PO SCH (07:50)
[2019-05-19] MEDS: DILTIAZEM HCL CD 120 MG ER CAPSULE PO SCH (07:50)
[2019-05-19] MEDS: DILTIAZEM HCL CD 180 MG ER CAPSULE PO SCH (07:50)
[2019-05-19 07:51] VITALS: BP 165/77
[2019-05-19] MEDS ORDERED: DiphenhydrAMINE HCL 50 MG/ML VIAL IVP ONE (08:59)
[2019-05-19] MEDS ORDERED: VITAMIN B COMP/VIT C/FOLIC ACID CAPSULE PO SCH (09:00)
== END 2019-05-19 09:00 | disposition left against medical advice (07) | DRG 640 ==
LOC: EMS 23:07 → 5N 05-18 01:00
PROVIDERS: ADMIT Hospitalist; ATTEND Hospitalist
PROC: 5A1D70Z Performance of Urinary Filtration, Intermittent, Less than 6 Hours Per Day (ICD-10-PCS; principal; 2019-05-18)
DX: E87.5 Hyperkalemia (principal); I50.33 Acute on chronic diastolic (congestive) heart failure; N18.6 End stage renal disease; I13.2 Hypertensive heart and chronic kidney disease with heart failure and with stage 5 chronic kidney disease, or end stage renal disease; J81.1 Chronic pulmonary edema; E11.22 Type 2 diabetes mellitus with diabetic chronic kidney disease; I25.10 Atherosclerotic heart disease of native coronary artery without angina pectoris; D64.9 Anemia, unspecified; E66.01 Morbid (severe) obesity due to excess calories; I48.0 Paroxysmal atrial fibrillation; Z53.29 Procedure and treatment not carried out because of patient's decision for other reasons; J44.9 Chronic obstructive pulmonary disease, unspecified; F41.9 Anxiety disorder, unspecified; Z79.01 Long term (current) use of anticoagulants; Z79.4 Long term (current) use of insulin; Z79.82 Long term (current) use of aspirin; Z79.899 Other long term (current) drug therapy; Z82.49 Family history of ischemic heart disease and other diseases of the circulatory system; Z82.5 Family history of asthma and other chronic lower respiratory diseases; Z83.3 Family history of diabetes mellitus; Z90.710 Acquired absence of both cervix and uterus; Z91.19 Patient's noncompliance with other medical treatment and regimen; Z95.2 Presence of prosthetic heart valve; Z95.5 Presence of coronary angioplasty implant and graft; Z99.2 Dependence on renal dialysis; Z88.0 Allergy status to penicillin; Z28.21 Immunization not carried out because of patient refusal; Z68.38 Body mass index [BMI] 38.0-38.9, adult
CPT/HCPCS: 83735; 84100; 84132; 87081; 93005; 93306; 96374; 96375; 99291; J0610; J1200; J1815; J2405; J2930; J3490

== ENCOUNTER 2019-07-26 09:27 | Emergency (ER) | payer MEDICARE, MEDICAID ==
[~2019-07-26] VITALS: Ht 172.7 cm; Wt 110.8 kg
[~2019-07-26 09:27] MED LIST changes: +AMIO200T5 PO; +APIX5TAB PO; +ASPI-728 PO; -ASPI81 PO; +DILT300C33 PO; -INSNOV SQ; -LEVO750T21 PO; -LOSA25TA41 PO; +NITR0.4T50 SL
[2019-07-26 09:55] LABS: GLUCOSE,POINT OF CARE 192 MG/DL (70-110)
[2019-07-26 12:33] VITALS: BP 130/98
== END 2019-07-26 13:29 | disposition home or self-care (01) ==
LOC: EMS 09:29
DX: S60.222A Contusion of left hand, initial encounter (principal); S60.413A Abrasion of left middle finger, initial encounter; S60.411A Abrasion of left index finger, initial encounter; E11.65 Type 2 diabetes mellitus with hyperglycemia; I48.91 Unspecified atrial fibrillation; I10 Essential (primary) hypertension; I25.2 Old myocardial infarction; I25.10 Atherosclerotic heart disease of native coronary artery without angina pectoris; J44.9 Chronic obstructive pulmonary disease, unspecified; F41.9 Anxiety disorder, unspecified; Z90.49 Acquired absence of other specified parts of digestive tract; Z99.2 Dependence on renal dialysis; Z90.710 Acquired absence of both cervix and uterus; Z98.890 Other specified postprocedural states; Z79.899 Other long term (current) drug therapy; Z88.0 Allergy status to penicillin; Z79.01 Long term (current) use of anticoagulants; X50.3XXA Overexertion from repetitive movements, initial encounter; Y93.E9 Activity, other interior property and clothing maintenance; Y92.099 Unspecified place in other non-institutional residence as the place of occurrence of the external cause; Y99.8 Other external cause status
CPT/HCPCS: 29280

== ENCOUNTER 2019-09-06 12:13 | Emergency (ER) | payer MEDICARE, MEDICAID ==
[~2019-09-06] VITALS: Ht 172.7 cm; Wt 113.0 kg
[~2019-09-06 12:13] MED LIST changes: +ZOLP-280 PO; -ZOLP5 PO
[2019-09-06 12:51] LABS: GLUCOSE,POINT OF CARE 121 MG/DL (70-110)
[2019-09-06] MEDS ORDERED: DOCU-275 PO (12:52)
[2019-09-06 13:57] VITALS: BP 172/69
[2019-09-06] MEDS ORDERED: SODIUM PHOS/SODIUM BIPHOS 133 ML ENEMA PR ONE (14:30)
== END 2019-09-06 14:58 | disposition home or self-care (01) ==
LOC: EMS 12:14
DX: K59.09 Other constipation (principal); I11.0 Hypertensive heart disease with heart failure; I50.9 Heart failure, unspecified; I25.10 Atherosclerotic heart disease of native coronary artery without angina pectoris; J44.9 Chronic obstructive pulmonary disease, unspecified; I48.91 Unspecified atrial fibrillation; E11.9 Type 2 diabetes mellitus without complications; F41.9 Anxiety disorder, unspecified; Z90.49 Acquired absence of other specified parts of digestive tract; Z88.0 Allergy status to penicillin; Z79.82 Long term (current) use of aspirin; Z79.899 Other long term (current) drug therapy

== ENCOUNTER 2019-10-17 21:06 | Emergency (ER) | payer MEDICARE, MEDICAID ==
[~2019-10-17] VITALS: Ht 172.7 cm; Wt 113.0 kg
[~2019-10-17 21:06] MED LIST changes: +DOCU-275 PO
[2019-10-17 21:35] VITALS: BP 129/73
[2019-10-18] MEDS ORDERED: ALBU8HFA IH (14:09)
== END 2019-10-17 22:00 | disposition home or self-care (01) ==
LOC: EMS 21:06
DX: I97.620 Postprocedural hemorrhage of a circulatory system organ or structure following other procedure (principal); Z88.0 Allergy status to penicillin; Z79.82 Long term (current) use of aspirin; Z79.01 Long term (current) use of anticoagulants; Z79.899 Other long term (current) drug therapy

== ENCOUNTER 2019-10-18 12:34 | Emergency (ER) | payer MEDICARE, MEDICAID ==
[~2019-10-18] VITALS: Ht 172.7 cm; Wt 117.0 kg
[2019-10-18] MEDS ORDERED: ALBU8HFA IH (14:09)
[2019-10-18] MEDS ORDERED: CefTRIAXone SODIUM 1 GM/VIAL IM ONE (14:15)
[2019-10-18] MEDS ORDERED: LIDOCAINE/PF 1% 2 ML VIAL IM ONE (14:15)
[2019-10-18 14:57] VITALS: BP 159/81
[2019-10-18] MEDS ORDERED: IBUPROFEN 600 MG TABLET PO ONE (15:00)
== END 2019-10-18 15:08 | disposition home or self-care (01) ==
LOC: EMS 12:38
DX: L03.114 Cellulitis of left upper limb (principal); I10 Essential (primary) hypertension; I11.0 Hypertensive heart disease with heart failure; I50.9 Heart failure, unspecified; E11.9 Type 2 diabetes mellitus without complications; J45.909 Unspecified asthma, uncomplicated; I25.10 Atherosclerotic heart disease of native coronary artery without angina pectoris; I48.91 Unspecified atrial fibrillation; Z79.82 Long term (current) use of aspirin; Z88.0 Allergy status to penicillin; Z79.01 Long term (current) use of anticoagulants; Z79.899 Other long term (current) drug therapy
CPT/HCPCS: 82962; 96372; 99283; J0696; J3490

== ENCOUNTER → 2019-11-17 | Outpatient (CLI) | payer MEDICARE, MEDICAID ==
[~2019-11-17] MED LIST changes: -ALBU8.5H3 IH; +ALBU8HFA IH
== END | disposition home or self-care (01) ==
LOC: RADPV 09:34
PROVIDERS: ATTEND Podiatrist Foot & Ankle Surgery
DX: M77.32 Calcaneal spur, left foot (principal); R60.0 Localized edema; E11.40 Type 2 diabetes mellitus with diabetic neuropathy, unspecified

== ENCOUNTER 2020-10-13 22:50 | Emergency (ER) | payer MEDICARE, MEDICAID ==
[~2020-10-13] VITALS: Ht 172.7 cm; Wt 117.5 kg
[~2020-10-13 22:50] MED LIST changes: -AMIO200T5 PO; +AMIO200T6 PO; +ASPI-1450 PO; -ASPI-728 PO; -DILT300C33 PO; +[UNRECOGNIZED DRUG - CODE] PO
[2020-10-13] MEDS ORDERED: HYDROCODONE/ACETAMINOPHEN 5-325 MG TABLET PO ONE (23:45)
[2020-10-14 00:19] VITALS: BP 141/79
== END 2020-10-14 01:26 | disposition home or self-care (01) ==
LOC: EMS 22:53
DX: S80.01XA Contusion of right knee, initial encounter (principal); I48.91 Unspecified atrial fibrillation; F41.9 Anxiety disorder, unspecified; J45.909 Unspecified asthma, uncomplicated; I25.10 Atherosclerotic heart disease of native coronary artery without angina pectoris; I25.2 Old myocardial infarction; E11.22 Type 2 diabetes mellitus with diabetic chronic kidney disease; I13.2 Hypertensive heart and chronic kidney disease with heart failure and with stage 5 chronic kidney disease, or end stage renal disease; I50.9 Heart failure, unspecified; N18.6 End stage renal disease; Z90.710 Acquired absence of both cervix and uterus; Z88.0 Allergy status to penicillin; Z79.82 Long term (current) use of aspirin; Z99.2 Dependence on renal dialysis; W19.XXXA Unspecified fall, initial encounter; Y93.89 Activity, other specified; Y92.89 Other specified places as the place of occurrence of the external cause; Y99.8 Other external cause status
CPT/HCPCS: 29505; 99283

== ENCOUNTER 2020-12-21 19:21 | Emergency (ER) | payer MEDICARE, MEDICAID ==
[~2020-12-21] VITALS: Ht 172.7 cm; Wt 112.8 kg
[2020-12-21 20:17] LABS: BASOPHILS % (AUTO) 0.9 % (0.0-2.0); EOSINOPHILS % (AUTO) 1.4 % (1.0-6.0); HEMATOCRIT 38.5 % (36-46); HEMOGLOBIN 13.1 g/dL (12.0-16.0); LYMPHOCYTES # (AUTO) 1.6 K/uL (1.0-4.8); LYMPHOCYTES % (AUTO) 22.6 % (22.0-44.0); MEAN CORPUSCULAR HEMOGLOBIN 33.3 pg (26.0-34.0); MEAN CORPUSCULAR VOLUME 98 fL (80-100); MONOCYTES # (AUTO) 0.6 K/uL (0.1-1.0); MONOCYTES % (AUTO) 8.6 % (2.0-9.0); NEUTROPHILS # (AUTO) 4.7 K/uL (1.8-7.7); NEUTROPHILS % (AUTO) 66.5 % (40.0-70.0); PLATELET COUNT (AUTO) 145 K/uL (150-450); RED BLOOD CELL COUNT(AUTO) 3.92 MIL/uL (4.00-5.20); RED CELL DISTRIBUTION WIDTH 14.1 % (11.5-14.5)
[2020-12-21 20:39] LABS: CALCIUM, TOTAL 8.6 mg/dL (8.8-10.5); CREATININE 4.32 mg/dL (0.60-1.30); POTASSIUM 3.5 mmol/L (3.5-5.1)
[2020-12-21 20:45] LABS: ALBUMIN 3.7 g/dL (3.4-5.0); BILIRUBIN,TOTAL 0.3 mg/dL (0.1-1.0); TOTAL PROTEIN, SERUM 6.9 g/dL (6.4-8.2)
[2020-12-21] MEDS ORDERED: MINERAL OIL 133 ML ENEMA PR ONE (22:00)
[2020-12-21] MEDS ORDERED: MAGNESIUM CITRATE 300 ML ORAL SOLUTION PO ONE (22:30)
[2020-12-21] MEDS ORDERED: BISACODYL 10 MG RECTAL RECTAL SUPPOSITORY PR ONE (23:15)
[2020-12-21] MEDS ORDERED: [UNRECOGNIZED DRUG - OTHER] PR STA (23:45)
[2020-12-22 02:00] VITALS: BP 132/60
== END 2020-12-22 02:27 | disposition home or self-care (01) ==
LOC: EMS 19:26
DX: K59.00 Constipation, unspecified (principal); I13.2 Hypertensive heart and chronic kidney disease with heart failure and with stage 5 chronic kidney disease, or end stage renal disease; I48.91 Unspecified atrial fibrillation; F41.9 Anxiety disorder, unspecified; J45.909 Unspecified asthma, uncomplicated; I50.9 Heart failure, unspecified; N18.6 End stage renal disease; Z90.49 Acquired absence of other specified parts of digestive tract; Z90.710 Acquired absence of both cervix and uterus; Z88.0 Allergy status to penicillin
CPT/HCPCS: 74018; 80053; 82962; 83690; 84484; 85025; 93005; 99285

== ENCOUNTER 2020-12-29 18:22 | Emergency (ER) | payer MEDICARE, MEDICAID ==
[~2020-12-29] VITALS: Ht 172.7 cm; Wt 117.5 kg
[~2020-12-29 18:22] MED LIST changes: +DOCU-270 PO; -DOCU-275 PO
[2020-12-29] MEDS ORDERED: MINERAL OIL 133 ML ENEMA PR ONE (19:00)
[2020-12-29 19:26] LABS: EOSINOPHILS % (AUTO) 2.6 % (1.0-6.0); HEMATOCRIT 38.6 % (36-46); LYMPHOCYTES # (AUTO) 1.4 K/uL (1.0-4.8); LYMPHOCYTES % (AUTO) 17.2 % (22.0-44.0); MEAN CORPUSCULAR HEMOGLOBIN 33.4 pg (26.0-34.0); MEAN CORPUSCULAR HGB CONC 33.6 G/dL (31.0-37.0); MEAN CORPUSCULAR VOLUME 100 fL (80-100); MONOCYTES # (AUTO) 0.6 K/uL (0.1-1.0); NEUTROPHILS # (AUTO) 6.1 K/uL (1.8-7.7); NEUTROPHILS % (AUTO) 72.2 % (40.0-70.0); PLATELET COUNT (AUTO) 158 K/uL (150-450); RED BLOOD CELL COUNT(AUTO) 3.88 MIL/uL (4.00-5.20)
[2020-12-29 19:35] LABS: CALCIUM, TOTAL 9.4 mg/dL (8.8-10.5); CREATININE 9.17 mg/dL (0.60-1.30); POTASSIUM 4.2 mmol/L (3.5-5.1)
[2020-12-29 19:39] LABS: ALBUMIN 3.9 g/dL (3.4-5.0); BILIRUBIN,TOTAL 0.4 mg/dL (0.1-1.0); MAGNESIUM 2.6 mg/dL (1.80-2.40); PHOSPHORUS 3.6 mg/dL (2.5-4.9)
[2020-12-29 22:58] VITALS: BP 119/74
== END 2020-12-29 23:50 | disposition home or self-care (01) ==
LOC: EMS 18:33
DX: K59.00 Constipation, unspecified (principal); I48.91 Unspecified atrial fibrillation; F41.9 Anxiety disorder, unspecified; J45.909 Unspecified asthma, uncomplicated; I25.10 Atherosclerotic heart disease of native coronary artery without angina pectoris; I11.0 Hypertensive heart disease with heart failure; I50.9 Heart failure, unspecified; E11.9 Type 2 diabetes mellitus without complications; F11.90 Opioid use, unspecified, uncomplicated; Z90.89 Acquired absence of other organs; Z90.710 Acquired absence of both cervix and uterus; Z79.82 Long term (current) use of aspirin
CPT/HCPCS: 80053; 83735; 84100; 85025; 93005; 99284

== ENCOUNTER 2021-02-15 17:16 | Inpatient (IN) | payer MEDICARE, MEDICAID ==
[~2021-02-15] VITALS: Ht 165.1 cm; Wt 105.5 kg
[2021-02-15 18:37] LABS: BASOPHILS % (AUTO) 1.1 % (0.0-2.0); EOSINOPHILS % (AUTO) 1.2 % (1.0-6.0); HEMATOCRIT 43.4 % (36-46); HEMOGLOBIN 14.4 g/dL (12.0-16.0); LYMPHOCYTES # (AUTO) 1.8 K/uL (1.0-4.8); LYMPHOCYTES % (AUTO) 24.6 % (22.0-44.0); MEAN CORPUSCULAR HEMOGLOBIN 33.4 pg (26.0-34.0); MEAN CORPUSCULAR HGB CONC 33.3 G/dL (31.0-37.0); MEAN CORPUSCULAR VOLUME 101 fL (80-100); MONOCYTES # (AUTO) 0.7 K/uL (0.1-1.0); MONOCYTES % (AUTO) 8.7 % (2.0-9.0); NEUTROPHILS # (AUTO) 4.8 K/uL (1.8-7.7); NEUTROPHILS % (AUTO) 64.4 % (40.0-70.0); PLATELET COUNT (AUTO) 135 K/uL (150-450); RED BLOOD CELL COUNT(AUTO) 4.32 MIL/uL (4.00-5.20); RED CELL DISTRIBUTION WIDTH 14.5 % (11.5-14.5)
[2021-02-15 18:46] LABS: CALCIUM, TOTAL 9.6 mg/dL (8.8-10.5); CREATININE 9.26 mg/dL (0.60-1.30); POTASSIUM 3.2 mmol/L (3.5-5.1)
[2021-02-15 18:51] LABS: ALBUMIN 3.8 g/dL (3.4-5.0); BILIRUBIN,TOTAL 0.4 mg/dL (0.1-1.0); TOTAL PROTEIN, SERUM 7.2 g/dL (6.4-8.2)
[2021-02-15 19:04] LABS: COVID AG,FIA SOURCE NASOPHARYNGEAL
[2021-02-15] MEDS ORDERED: ONDANSETRON HCL 4 MG/2 ML VIAL IVP PRN ×2 (19:30→21:15)
[2021-02-15] MEDS ORDERED: ACETAMINOPHEN 325 MG TABLET PO PRN (19:30)
[2021-02-15] MEDS ORDERED: 0.9% SODIUM CHLORIDE 10 ML SYRINGE IVP PRN (19:30)
[2021-02-15] MEDS ORDERED: ASPIRIN 81 MG CHEWABLE TABLET PO ONE (19:30)
[2021-02-15] MEDS ORDERED: MORPHINE SULFATE 2 MG/ML SYRINGE IVP PRN (21:15)
[2021-02-15] MEDS ORDERED: HYDROCODONE/ACETAMINOPHEN 5-325 MG TABLET PO PRN (21:15)
[2021-02-15] MEDS ORDERED: ZOLPIDEM TARTRATE 5 MG TABLET PO PRN (21:15)
[2021-02-15] MEDS ORDERED: MAGNESIUM HYDROXIDE SUSPENSION 30 ML UDCUP PO PRN (21:15)
[2021-02-15] MEDS ORDERED: BISACODYL 10 MG RECTAL RECTAL SUPPOSITORY PR PRN (21:15)
[2021-02-16] VITALS (8 sets, daily range): BP systolic 93–150; BP diastolic 39–73
[2021-02-16] MEDS ORDERED: SIMETHICONE 80 MG CHEWABLE TABLET CHEW ONE (06:15)
[2021-02-16] MEDS: ACETAMINOPHEN 325 MG TABLET PO PRN ×2 (06:24→20:24)
[2021-02-16 06:34] LABS: BASOPHILS % (AUTO) 1.2 % (0.0-2.0); HEMATOCRIT 41.6 % (36-46); LYMPHOCYTES # (AUTO) 1.8 K/uL (1.0-4.8); LYMPHOCYTES % (AUTO) 26.8 % (22.0-44.0); MEAN CORPUSCULAR HGB CONC 33.6 G/dL (31.0-37.0); MEAN CORPUSCULAR VOLUME 101 fL (80-100); MONOCYTES # (AUTO) 0.6 K/uL (0.1-1.0); MONOCYTES % (AUTO) 9.1 % (2.0-9.0); NEUTROPHILS # (AUTO) 4.1 K/uL (1.8-7.7); NEUTROPHILS % (AUTO) 60.9 % (40.0-70.0); PLATELET COUNT (AUTO) 127 K/uL (150-450); RED BLOOD CELL COUNT(AUTO) 4.11 MIL/uL (4.00-5.20); RED CELL DISTRIBUTION WIDTH 14.7 % (11.5-14.5)
[2021-02-16 06:48] LABS: CALCIUM, TOTAL 9.4 mg/dL (8.8-10.5); CREATININE 9.93 mg/dL (0.60-1.30)
[2021-02-16] MEDS: DOCUSATE SODIUM 100 MG CAPSULE PO SCH ×2 (08:27→20:22)
[2021-02-16] MEDS: ASPIRIN 81 MG CHEWABLE TABLET PO SCH (08:31)
[2021-02-16] MEDS: PANTOPRAZOLE SODIUM 40 MG DR TABLET PO SCH (08:32)
[2021-02-16] MEDS: ATORVASTATIN CALCIUM 40 MG TABLET PO SCH (08:32)
[2021-02-16] MEDS: SEVELAMER CARBONATE 800 MG TABLET PO SCH ×3 (08:32→17:44)
[2021-02-16] MEDS: APIXABAN 5 MG TABLET PO SCH ×2 (08:32→20:22)
[2021-02-16] MEDS: CINACALCET HCL 30 MG TABLET PO SCH (08:34)
[2021-02-16] MEDS ORDERED: AMIODARONE HCL 200 MG TABLET PO SCH (09:00)
[2021-02-16] MEDS ORDERED: DILTIAZEM HCL CD 300 MG ER CAPSULE PO SCH (09:00)
[2021-02-16] MEDS ORDERED: SENNA 187 MG TABLET PO PRN (10:15)
[2021-02-16] MEDS: SIMETHICONE 80 MG CHEWABLE TABLET CHEW PRN (15:14)
[2021-02-16] MEDS ORDERED: SODIUM CHLORIDE 0.9% 2,000 ML ONE (15:48)
[2021-02-17] MEDS: SIMETHICONE 80 MG CHEWABLE TABLET CHEW PRN ×2 (00:16→08:23)
[2021-02-17 04:17] VITALS: BP 98/51
[2021-02-17 06:50] LABS: EOSINOPHILS % (AUTO) 1.8 % (1.0-6.0); HEMATOCRIT 42.6 % (36-46); HEMOGLOBIN 14.2 g/dL (12.0-16.0); LYMPHOCYTES # (AUTO) 1.8 K/uL (1.0-4.8); LYMPHOCYTES % (AUTO) 25.9 % (22.0-44.0); MEAN CORPUSCULAR HEMOGLOBIN 34.2 pg (26.0-34.0); MEAN CORPUSCULAR HGB CONC 33.5 G/dL (31.0-37.0); MEAN CORPUSCULAR VOLUME 102 fL (80-100); MONOCYTES # (AUTO) 0.7 K/uL (0.1-1.0); MONOCYTES % (AUTO) 10.2 % (2.0-9.0); NEUTROPHILS # (AUTO) 4.3 K/uL (1.8-7.7); NEUTROPHILS % (AUTO) 61.1 % (40.0-70.0); PLATELET COUNT (AUTO) 125 K/uL (150-450); RED BLOOD CELL COUNT(AUTO) 4.17 MIL/uL (4.00-5.20); RED CELL DISTRIBUTION WIDTH 15.1 % (11.5-14.5)
[2021-02-17 07:02] LABS: CALCIUM, TOTAL 8.4 mg/dL (8.8-10.5); CREATININE 6.64 mg/dL (0.60-1.30); POTASSIUM 3.1 mmol/L (3.5-5.1)
[2021-02-17 07:44] VITALS: BP 98/50
[2021-02-17] MEDS: ASPIRIN 81 MG CHEWABLE TABLET PO SCH (08:23)
[2021-02-17] MEDS: SEVELAMER CARBONATE 800 MG TABLET PO SCH ×2 (08:23→12:02)
[2021-02-17] MEDS: PANTOPRAZOLE SODIUM 40 MG DR TABLET PO SCH (08:23)
[2021-02-17] MEDS: APIXABAN 5 MG TABLET PO SCH (08:24)
[2021-02-17] MEDS: CINACALCET HCL 30 MG TABLET PO SCH (08:24)
[2021-02-17] MEDS: ATORVASTATIN CALCIUM 40 MG TABLET PO SCH (08:24)
[2021-02-17] MEDS: DOCUSATE SODIUM 100 MG CAPSULE PO SCH (08:31)
[2021-02-17] MEDS ORDERED: AMIODARONE HCL 200 MG TABLET PO SCH (09:00)
[2021-02-17 10:49] VITALS: BP 104/58
[2021-02-17] MEDS ORDERED: SIME80TA14 PO (14:11)
[2021-02-17] MEDS ORDERED: HEPARIN SODIUM,PORCINE 1,000 UNITS/ML VIAL IVP ONE (15:32)
== END 2021-02-17 16:50 | disposition home or self-care (01) | DRG 291 ==
LOC: EMS 17:19 → 5S 21:02
PROVIDERS: ADMIT Internal Medicine; ATTEND Internal Medicine
DX: I13.2 Hypertensive heart and chronic kidney disease with heart failure and with stage 5 chronic kidney disease, or end stage renal disease (principal); N18.6 End stage renal disease; I48.20 Chronic atrial fibrillation, unspecified; N25.81 Secondary hyperparathyroidism of renal origin; R07.89 Other chest pain; D63.1 Anemia in chronic kidney disease; E11.22 Type 2 diabetes mellitus with diabetic chronic kidney disease; E66.01 Morbid (severe) obesity due to excess calories; E78.5 Hyperlipidemia, unspecified; E87.6 Hypokalemia; F41.9 Anxiety disorder, unspecified; I25.10 Atherosclerotic heart disease of native coronary artery without angina pectoris; I25.5 Ischemic cardiomyopathy; I48.0 Paroxysmal atrial fibrillation; I50.9 Heart failure, unspecified; J44.9 Chronic obstructive pulmonary disease, unspecified; Z20.822 Contact with and (suspected) exposure to COVID-19; K59.09 Other constipation; Z79.01 Long term (current) use of anticoagulants; Z79.899 Other long term (current) drug therapy; Z90.710 Acquired absence of both cervix and uterus; Z95.1 Presence of aortocoronary bypass graft; Z95.2 Presence of prosthetic heart valve; Z99.2 Dependence on renal dialysis; Z99.3 Dependence on wheelchair; Z88.0 Allergy status to penicillin; Z90.49 Acquired absence of other specified parts of digestive tract; I25.2 Old myocardial infarction; Z68.38 Body mass index [BMI] 38.0-38.9, adult
CPT/HCPCS: 71045; 74019; 80048; 80053; 83690; 84484; 85025; 87081; 87340; 93005; 93306; 99285; J1644; J2405; J7030; 36415-L1; 36415-TC

== ENCOUNTER 2021-02-23 16:32 | Inpatient (IN) | payer MEDICARE, MEDICAID ==
[~2021-02-23] VITALS: Ht 172.7 cm; Wt 103.2 kg
[~2021-02-23 16:32] MED LIST changes: -DOCU-270 PO; -NITR0.4T50 SL; +SIME80TA14 PO; -[UNRECOGNIZED DRUG - CODE] PO
[2021-02-23 18:05] LABS: EOSINOPHILS % (AUTO) 0.8 % (1.0-6.0); HEMATOCRIT 44.3 % (36-46); HEMOGLOBIN 14.7 g/dL (12.0-16.0); LYMPHOCYTES # (AUTO) 2.2 K/uL (1.0-4.8); LYMPHOCYTES % (AUTO) 23.9 % (22.0-44.0); MEAN CORPUSCULAR HEMOGLOBIN 33.5 pg (26.0-34.0); MEAN CORPUSCULAR HGB CONC 33.3 G/dL (31.0-37.0); MEAN CORPUSCULAR VOLUME 101 fL (80-100); MONOCYTES # (AUTO) 0.6 K/uL (0.1-1.0); MONOCYTES % (AUTO) 6.8 % (2.0-9.0); NEUTROPHILS # (AUTO) 6.2 K/uL (1.8-7.7); NEUTROPHILS % (AUTO) 67.5 % (40.0-70.0); PLATELET COUNT (AUTO) 175 K/uL (150-450); RED BLOOD CELL COUNT(AUTO) 4.41 MIL/uL (4.00-5.20); RED CELL DISTRIBUTION WIDTH 14.9 % (11.5-14.5)
[2021-02-23 18:12] LABS: CALCIUM, TOTAL 9.9 mg/dL (8.8-10.5); CREATININE 11.61 mg/dL (0.60-1.30); POTASSIUM 3.2 mmol/L (3.5-5.1)
[2021-02-23 18:18] LABS: ALBUMIN 4.2 g/dL (3.4-5.0); BILIRUBIN,TOTAL 0.4 mg/dL (0.1-1.0); TOTAL PROTEIN, SERUM 7.5 g/dL (6.4-8.2)
[2021-02-23] MEDS ORDERED: MIDODRINE HCL 5 MG TABLET PO PRN (19:45)
[2021-02-23] MEDS: APIXABAN 5 MG TABLET PO SCH (21:00)
[2021-02-24] MEDS ORDERED: HEPARIN SODIUM,PORCINE 5,000 UNITS/ML VIAL SQ SCH
[2021-02-24 04:19] LABS: COVID AG,FIA SOURCE NASOPHARYNGEAL
[2021-02-24 05:48] LABS: BASOPHILS % (AUTO) 1.2 % (0.0-2.0); EOSINOPHILS % (AUTO) 1.7 % (1.0-6.0); HEMATOCRIT 44.5 % (36-46); HEMOGLOBIN 14.9 g/dL (12.0-16.0); LYMPHOCYTES # (AUTO) 2.2 K/uL (1.0-4.8); LYMPHOCYTES % (AUTO) 30.7 % (22.0-44.0); MEAN CORPUSCULAR HEMOGLOBIN 33.7 pg (26.0-34.0); MEAN CORPUSCULAR HGB CONC 33.4 G/dL (31.0-37.0); MEAN CORPUSCULAR VOLUME 101 fL (80-100); MONOCYTES # (AUTO) 0.6 K/uL (0.1-1.0); MONOCYTES % (AUTO) 8.5 % (2.0-9.0); NEUTROPHILS # (AUTO) 4.2 K/uL (1.8-7.7); NEUTROPHILS % (AUTO) 57.9 % (40.0-70.0); PLATELET COUNT (AUTO) 167 K/uL (150-450); RED BLOOD CELL COUNT(AUTO) 4.41 MIL/uL (4.00-5.20); RED CELL DISTRIBUTION WIDTH 14.7 % (11.5-14.5)
[2021-02-24 06:02] LABS: CALCIUM, TOTAL 9.6 mg/dL (8.8-10.5); CREATININE 12.37 mg/dL (0.60-1.30); MAGNESIUM 2.7 mg/dL (1.80-2.40); POTASSIUM 3.3 mmol/L (3.5-5.1)
[2021-02-24] MEDS ORDERED: SEVELAMER CARBONATE 800 MG TABLET PO SCH (08:00)
[2021-02-24] MEDS: AMIODARONE HCL 200 MG TABLET PO SCH (09:15)
[2021-02-24] MEDS: ASPIRIN 81 MG CHEWABLE TABLET PO SCH (09:15)
[2021-02-24] MEDS: ATORVASTATIN CALCIUM 40 MG TABLET PO SCH (09:16)
[2021-02-24] MEDS: APIXABAN 5 MG TABLET PO SCH ×2 (09:16→21:25)
[2021-02-24] MEDS: CINACALCET HCL 30 MG TABLET PO SCH (09:16)
[2021-02-24 09:30] VITALS: BP 125/43
[2021-02-24 11:55] VITALS: BP 106/50
[2021-02-24] MEDS ORDERED: DiphenhydrAMINE HCL 50 MG/ML VIAL IVP ONE (12:00)
[2021-02-24] MEDS ORDERED: HEPARIN SODIUM,PORCINE 1,000 UNITS/ML VIAL IVP ONE (12:00)
[2021-02-24] MEDS: SEVELAMER CARBONATE 800 MG TABLET PO SCH ×2 (12:15→18:29)
[2021-02-24] MEDS ORDERED: SODIUM CHLORIDE 0.9% 100 ML ONE (13:19)
[2021-02-24] MEDS ORDERED: IOHEXOL 350 MG/ML 75 ML VIAL ONE (13:19)
[2021-02-24] MEDS ORDERED: IOHEXOL 350 MG/ML 100 ML VIAL ONE (13:25)
[2021-02-24 15:46] VITALS: BP 133/78
[2021-02-24 23:54] VITALS: BP 102/49
[2021-02-25 04:40] VITALS: BP 77/42
[2021-02-25 04:41] VITALS: BP 65/40
[2021-02-25 08:06] VITALS: BP 88/41
[2021-02-25] MEDS: CINACALCET HCL 30 MG TABLET PO SCH (08:27)
[2021-02-25] MEDS: AMIODARONE HCL 200 MG TABLET PO SCH (08:29)
[2021-02-25] MEDS: APIXABAN 5 MG TABLET PO SCH ×2 (08:29→19:48)
[2021-02-25] MEDS: ATORVASTATIN CALCIUM 40 MG TABLET PO SCH (08:30)
[2021-02-25] MEDS: ASPIRIN 81 MG CHEWABLE TABLET PO SCH (08:30)
[2021-02-25] MEDS: SEVELAMER CARBONATE 800 MG TABLET PO SCH ×3 (08:30→18:08)
[2021-02-25] MEDS ORDERED: SODIUM CHLORIDE 0.9% 1,000 ML ONE (09:11)
[2021-02-25] MEDS ORDERED: MIDODRINE HCL 5 MG TABLET PO ONE (10:30)
[2021-02-25] MEDS: ONDANSETRON HCL 4 MG/2 ML VIAL IVP PRN (10:35)
[2021-02-25] MEDS ORDERED: SODIUM CHLORIDE 0.9% 250 ML IV ONE ×2 (11:00→14:45)
[2021-02-25 12:17] VITALS: BP 91/47
[2021-02-25] MEDS: DOCUSATE SODIUM 100 MG CAPSULE PO SCH ×2 (12:21→19:48)
[2021-02-25 16:05] VITALS: BP 107/42
[2021-02-25 20:19] VITALS: BP 94/59
[2021-02-25] MEDS: ZOLPIDEM TARTRATE 5 MG TABLET PO PRN (21:48)
[2021-02-26] VITALS (8 sets, daily range): BP systolic 72–118; BP diastolic 32–64
[2021-02-26] MEDS ORDERED: MIDODRINE HCL 5 MG TABLET PO ONE ×3 (00:30→12:15)
[2021-02-26] MEDS: SEVELAMER CARBONATE 800 MG TABLET PO SCH ×3 (07:55→17:26)
[2021-02-26] MEDS: DOCUSATE SODIUM 100 MG CAPSULE PO SCH ×2 (07:55→20:13)
[2021-02-26] MEDS: CINACALCET HCL 30 MG TABLET PO SCH (07:55)
[2021-02-26] MEDS: ATORVASTATIN CALCIUM 40 MG TABLET PO SCH (07:56)
[2021-02-26] MEDS: AMIODARONE HCL 200 MG TABLET PO SCH (07:56)
[2021-02-26] MEDS: APIXABAN 5 MG TABLET PO SCH ×2 (07:56→20:13)
[2021-02-26] MEDS: ASPIRIN 81 MG CHEWABLE TABLET PO SCH (09:26)
[2021-02-26] MEDS: SIMETHICONE 80 MG CHEWABLE TABLET PO PRN (16:04)
[2021-02-26] MEDS ORDERED: BISACODYL 10 MG RECTAL RECTAL SUPPOSITORY PR ONE (17:15)
[2021-02-26] MEDS ORDERED: SODIUM PHOS/SODIUM BIPHOS 133 ML ENEMA PR ONE (19:45)
[2021-02-26] MEDS ORDERED: DOCUSATE SODIUM 100 MG CAPSULE PO ONE (22:45)
[2021-02-26] MEDS: BISACODYL 10 MG RECTAL RECTAL SUPPOSITORY PR ONE (23:16)
[2021-02-26] MEDS: POLYETHYLENE GLYCOL 3350 17 GM PACKET PO PRN (23:16)
[2021-02-27] VITALS (9 sets, daily range): BP systolic 68–138; BP diastolic 23–91
[2021-02-27] MEDS: BISACODYL 10 MG RECTAL RECTAL SUPPOSITORY PR ONE (04:05)
[2021-02-27] MEDS: SIMETHICONE 80 MG CHEWABLE TABLET PO PRN ×2 (04:09→09:53)
[2021-02-27] MEDS: ACETAMINOPHEN 325 MG TABLET PO PRN ×3 (04:30→18:47)
[2021-02-27] MEDS ORDERED: SODIUM CHLORIDE 0.9% 500 ML IV ONE ×2 (08:30→11:15)
[2021-02-27] MEDS: DOCUSATE SODIUM 100 MG CAPSULE PO SCH ×2 (08:52→21:03)
[2021-02-27] MEDS: SEVELAMER CARBONATE 800 MG TABLET PO SCH ×3 (08:52→18:15)
[2021-02-27] MEDS: CINACALCET HCL 30 MG TABLET PO SCH (08:52)
[2021-02-27] MEDS: APIXABAN 5 MG TABLET PO SCH ×2 (08:52→21:02)
[2021-02-27] MEDS: ASPIRIN 81 MG CHEWABLE TABLET PO SCH (08:53)
[2021-02-27] MEDS: ATORVASTATIN CALCIUM 40 MG TABLET PO SCH (08:54)
[2021-02-27] MEDS: MIDODRINE HCL 5 MG TABLET PO SCH ×2 (09:27→21:02)
[2021-02-27 09:28] LABS: C-REACTIVE PROTEIN QUANT 3.96 mg/dL (0.00-0.30); CALCIUM, TOTAL 8.7 mg/dL (8.8-10.5); CREATININE 6.87 mg/dL (0.60-1.30); POTASSIUM 3.6 mmol/L (3.5-5.1)
[2021-02-27] MEDS ORDERED: SODIUM CHLORIDE 0.9% 2,000 ML ONE (10:47)
[2021-02-27] MEDS: LACTULOSE 20 GM/30 ML SOLUTION UDCUP PO PRN (11:40)
[2021-02-27 12:22] LABS: BASOPHILS % (AUTO) 0.8 % (0.0-2.0); EOSINOPHILS % (AUTO) 0.2 % (1.0-6.0); HEMATOCRIT 45.4 % (36-46); HEMOGLOBIN 15.3 g/dL (12.0-16.0); LYMPHOCYTES # (AUTO) 0.5 K/uL (1.0-4.8); LYMPHOCYTES % (AUTO) 4.7 % (22.0-44.0); MEAN CORPUSCULAR HGB CONC 33.6 G/dL (31.0-37.0); MEAN CORPUSCULAR VOLUME 101 fL (80-100); MONOCYTES # (AUTO) 0.2 K/uL (0.1-1.0); MONOCYTES % (AUTO) 1.6 % (2.0-9.0); NEUTROPHILS # (AUTO) 9.9 K/uL (1.8-7.7); PLATELET COUNT (AUTO) 116 K/uL (150-450); RED BLOOD CELL COUNT(AUTO) 4.49 MIL/uL (4.00-5.20); RED CELL DISTRIBUTION WIDTH 14.7 % (11.5-14.5)
[2021-02-27 12:25] LABS: NEUTROPHILS % (AUTO) 92.7 % (40.0-70.0)
[2021-02-28] VITALS (7 sets, daily range): BP systolic 90–114; BP diastolic 45–78
[2021-02-28] MEDS: ACETAMINOPHEN 325 MG TABLET PO PRN ×2 (05:04→20:39)
[2021-02-28] MEDS: ONDANSETRON HCL 4 MG/2 ML VIAL IVP PRN ×3 (05:36→23:08)
[2021-02-28] MEDS: SEVELAMER CARBONATE 800 MG TABLET PO SCH ×3 (08:00→17:20)
[2021-02-28] MEDS: METOCLOPRAMIDE HCL 5 MG/ML 2 ML VIAL IVP PRN (08:47)
[2021-02-28] MEDS: DOCUSATE SODIUM 100 MG CAPSULE PO SCH ×3 (09:00→20:38)
[2021-02-28] MEDS: CINACALCET HCL 30 MG TABLET PO SCH (09:31)
[2021-02-28] MEDS: ATORVASTATIN CALCIUM 40 MG TABLET PO SCH (09:32)
[2021-02-28] MEDS: MIDODRINE HCL 5 MG TABLET PO SCH ×2 (09:32→20:39)
[2021-02-28] MEDS: ASPIRIN 81 MG CHEWABLE TABLET PO SCH (09:32)
[2021-02-28] MEDS: APIXABAN 5 MG TABLET PO SCH ×2 (09:35→20:38)
[2021-02-28] MEDS ORDERED: SODIUM CHLORIDE 0.9% 0 ML IV ONE (10:39)
[2021-02-28] MEDS: CefTRIAXone 1 GM/DEXTROSE 50 ML IV SCH (10:41)
[2021-02-28] MEDS: LACTULOSE 20 GM/30 ML SOLUTION UDCUP PO PRN (10:41)
[2021-02-28] MEDS ORDERED: ALBUMIN HUMAN 25%-12.5GM/50ML IV BOTTLE IV ONE ×2 (16:22→16:28)
[2021-02-28] MEDS ORDERED: HEPARIN SODIUM,PORCINE 1,000 UNITS/ML VIAL IVP ONE ×2 (16:22→16:28)
[2021-02-28] MEDS: POLYETHYLENE GLYCOL 3350 17 GM PACKET PO PRN (16:26)
[2021-02-28] MEDS: SIMETHICONE 80 MG CHEWABLE TABLET PO PRN ×2 (18:24→23:08)
[2021-03-01] VITALS (8 sets, daily range): BP systolic 55–127; BP diastolic 24–96
[2021-03-01] MEDS ORDERED: SODIUM CHLORIDE 0.9% 500 ML IV ONE ×2 (08:00→08:51)
[2021-03-01] MEDS: ONDANSETRON HCL 4 MG/2 ML VIAL IVP PRN ×2 (08:20→18:49)
[2021-03-01] MEDS: ASPIRIN 81 MG CHEWABLE TABLET PO SCH (08:34)
[2021-03-01] MEDS: DOCUSATE SODIUM 100 MG CAPSULE PO SCH ×2 (08:34→20:45)
[2021-03-01] MEDS: CINACALCET HCL 30 MG TABLET PO SCH (08:34)
[2021-03-01] MEDS: MIDODRINE HCL 5 MG TABLET PO SCH ×3 (08:34→20:47)
[2021-03-01] MEDS: APIXABAN 5 MG TABLET PO SCH ×2 (08:35→20:46)
[2021-03-01] MEDS: ATORVASTATIN CALCIUM 40 MG TABLET PO SCH (08:35)
[2021-03-01] MEDS: SEVELAMER CARBONATE 800 MG TABLET PO SCH ×4 (08:35→21:51)
[2021-03-01] MEDS: CefTRIAXone 1 GM/DEXTROSE 50 ML IV SCH (10:24)
[2021-03-01] MEDS: ACETAMINOPHEN 325 MG TABLET PO PRN (10:25)
[2021-03-01 11:04] LABS: GLUCOMETER DEV NAME(LOC) 5S.2B; GLUCOSE,POINT OF CARE 182 MG/DL (70-110)
[2021-03-01] MEDS ORDERED: HYDROCODONE/ACETAMINOPHEN 5-325 MG TABLET PO PRN (12:45)
[2021-03-01] MEDS: HYDROCODONE/ACETAMINOPHEN 5-325 MG TABLET PO PRN ×2 (12:58→21:53)
[2021-03-01 13:52] LABS: BASOPHILS % (AUTO) 0.1 % (0.0-2.0); EOSINOPHILS % (AUTO) 1.2 % (1.0-6.0)
[2021-03-01 13:56] LABS: HEMOGLOBIN 15.2 g/dL (12.0-16.0); LYMPHOCYTES % (AUTO) 6.6 % (22.0-44.0); MEAN CORPUSCULAR HEMOGLOBIN 33.2 pg (26.0-34.0); MEAN CORPUSCULAR HGB CONC 32.9 G/dL (31.0-37.0); MEAN CORPUSCULAR VOLUME 101 fL (80-100); MONOCYTES % (AUTO) 6.7 % (2.0-9.0); NEUTROPHILS # (AUTO) 12.9 K/uL (1.8-7.7); PLATELET COUNT (AUTO) 90 K/uL (150-450); RED BLOOD CELL COUNT(AUTO) 4.57 MIL/uL (4.00-5.20)
[2021-03-01 13:59] LABS: CREATININE 7.73 mg/dL (0.60-1.30); NEUTROPHILS % (AUTO) 85.4 % (40.0-70.0); POTASSIUM 4.5 mmol/L (3.5-5.1)
[2021-03-01 14:00] LABS: CALCIUM, TOTAL 11.2 mg/dL (8.8-10.5)
[2021-03-01] MEDS ORDERED: DiphenhydrAMINE HCL 25 MG CAPSULE PO PRN (15:45)
[2021-03-01] MEDS: SIMETHICONE 80 MG CHEWABLE TABLET PO PRN (20:46)
[2021-03-02 00:26] VITALS: BP 110/62
[2021-03-02] MEDS: ZOLPIDEM TARTRATE 5 MG TABLET PO PRN (00:33)
[2021-03-02 05:42] VITALS: BP 125/70
[2021-03-02] MEDS: MIDODRINE HCL 5 MG TABLET PO SCH ×3 (08:25→20:18)
[2021-03-02] MEDS: SEVELAMER CARBONATE 800 MG TABLET PO SCH ×3 (08:26→18:00)
[2021-03-02] MEDS: CINACALCET HCL 30 MG TABLET PO SCH (08:26)
[2021-03-02] MEDS: ASPIRIN 81 MG CHEWABLE TABLET PO SCH (08:27)
[2021-03-02] MEDS: DOCUSATE SODIUM 100 MG CAPSULE PO SCH ×3 (08:27→21:00)
[2021-03-02] MEDS: APIXABAN 5 MG TABLET PO SCH ×3 (08:27→21:00)
[2021-03-02] MEDS: ATORVASTATIN CALCIUM 40 MG TABLET PO SCH (08:27)
[2021-03-02 08:30] VITALS: BP 82/51
[2021-03-02] MEDS: ONDANSETRON HCL 4 MG/2 ML VIAL IVP PRN ×3 (09:29→23:40)
[2021-03-02 09:35] VITALS: BP 87/59
[2021-03-02] MEDS: CefTRIAXone 1 GM/DEXTROSE 50 ML IV SCH (10:43)
[2021-03-02] MEDS ORDERED: SODIUM CHLORIDE 0.9% 250 ML IV ONE (14:30)
[2021-03-02] MEDS: METOCLOPRAMIDE HCL 5 MG/ML 2 ML VIAL IVP PRN (18:31)
[2021-03-02] MEDS: ACETAMINOPHEN 325 MG TABLET PO PRN (18:31)
[2021-03-02 18:42] VITALS: BP 108/51
[2021-03-02] MEDS ORDERED: BISACODYL 10 MG RECTAL RECTAL SUPPOSITORY PR PRN (20:15)
[2021-03-02] MEDS: POLYETHYLENE GLYCOL 3350 17 GM PACKET PO PRN (20:19)
[2021-03-02] MEDS: LACTULOSE 20 GM/30 ML SOLUTION UDCUP PO PRN (20:25)
[2021-03-02 20:57] VITALS: BP 96/76
[2021-03-03] VITALS: BP 90/55
[2021-03-03] MEDS: METOCLOPRAMIDE HCL 5 MG/ML 2 ML VIAL IVP PRN ×3 (02:31→22:29)
[2021-03-03 03:08] LABS: OCCULT BLOOD,GASTRIC FLUID POSITIVE (NEGATIVE)
[2021-03-03] MEDS ORDERED: MORPHINE SULFATE 2 MG/ML SYRINGE IVP ONE (04:30)
[2021-03-03 05:30] VITALS: BP 100/55
[2021-03-03 06:09] LABS: GLUCOMETER DEV NAME(LOC) 5N.1C; GLUCOSE,POINT OF CARE 201 MG/DL (70-110)
[2021-03-03] MEDS: SEVELAMER CARBONATE 800 MG TABLET PO SCH ×3 (08:00→18:00)
[2021-03-03] MEDS: CINACALCET HCL 30 MG TABLET PO SCH (08:00)
[2021-03-03] MEDS: ONDANSETRON HCL 4 MG/2 ML VIAL IVP PRN ×2 (08:04→18:32)
[2021-03-03] MEDS: MIDODRINE HCL 5 MG TABLET PO SCH ×3 (08:05→20:38)
[2021-03-03 08:14] VITALS: BP 104/57
[2021-03-03] MEDS: DOCUSATE SODIUM 100 MG CAPSULE PO SCH ×2 (09:00→20:39)
[2021-03-03] MEDS: ASPIRIN 81 MG CHEWABLE TABLET PO SCH (09:00)
[2021-03-03] MEDS: APIXABAN 5 MG TABLET PO SCH ×2 (09:00→20:38)
[2021-03-03] MEDS: ATORVASTATIN CALCIUM 40 MG TABLET PO SCH (09:00)
[2021-03-03] MEDS ORDERED: PANTOPRAZOLE SODIUM 40 MG/VIAL IVP SCH (09:00)
[2021-03-03] MEDS: PANTOPRAZOLE SODIUM 40 MG/VIAL IVP SCH ×2 (09:33→20:38)
[2021-03-03] MEDS ORDERED: MAGNESIUM CITRATE 300 ML ORAL SOLUTION PO ONE (10:15)
[2021-03-03] MEDS ORDERED: SODIUM CHLORIDE 0.9% 250 ML IV ONE (10:54)
[2021-03-03] MEDS: CefTRIAXone 1 GM/DEXTROSE 50 ML IV SCH (11:05)
[2021-03-03 11:34] VITALS: BP 104/65
[2021-03-03] MEDS ORDERED: DiphenhydrAMINE HCL 50 MG/ML VIAL IM ONE (11:59)
[2021-03-03] MEDS ORDERED: HEPARIN SODIUM,PORCINE 1,000 UNITS/ML VIAL IVP ONE (11:59)
[2021-03-03] MEDS ORDERED: ALBUMIN HUMAN 25%-12.5GM/50ML IV BOTTLE IV ONE (11:59)
[2021-03-03] MEDS ORDERED: SODIUM CHLORIDE 0.9% 100 ML ONE (15:10)
[2021-03-03] MEDS ORDERED: IOHEXOL 350 MG/ML 150 ML VIAL ONE (15:10)
[2021-03-03 16:15] VITALS: BP 94/65
[2021-03-03 17:38] LABS: BASOPHILS % (AUTO) 0.1 % (0.0-2.0); EOSINOPHILS % (AUTO) 0.1 % (1.0-6.0); HEMATOCRIT 42.9 % (36-46); HEMOGLOBIN 14.2 g/dL (12.0-16.0); LYMPHOCYTES # (AUTO) 0.8 K/uL (1.0-4.8); LYMPHOCYTES % (AUTO) 4.2 % (22.0-44.0); MEAN CORPUSCULAR HEMOGLOBIN 33.3 pg (26.0-34.0); MEAN CORPUSCULAR HGB CONC 33.1 G/dL (31.0-37.0); MEAN CORPUSCULAR VOLUME 101 fL (80-100); MONOCYTES # (AUTO) 1.8 K/uL (0.1-1.0); MONOCYTES % (AUTO) 9.8 % (2.0-9.0); NEUTROPHILS # (AUTO) 15.8 K/uL (1.8-7.7); PLATELET COUNT (AUTO) 121 K/uL (150-450); RED BLOOD CELL COUNT(AUTO) 4.27 MIL/uL (4.00-5.20); RED CELL DISTRIBUTION WIDTH 15.3 % (11.5-14.5)
[2021-03-03 17:41] LABS: NEUTROPHILS % (AUTO) 85.8 % (40.0-70.0)
[2021-03-03 17:53] LABS: ALBUMIN 2.7 g/dL (3.4-5.0); BILIRUBIN,TOTAL 0.4 mg/dL (0.1-1.0); CALCIUM, TOTAL 10.8 mg/dL (8.8-10.5); CREATININE 7.09 mg/dL (0.60-1.30); POTASSIUM 4.4 mmol/L (3.5-5.1); TOTAL PROTEIN, SERUM 7.2 g/dL (6.4-8.2)
[2021-03-03] MEDS: ACETAMINOPHEN 325 MG TABLET PO PRN (18:30)
[2021-03-03 20:07] VITALS: BP 96/53
[2021-03-03] MEDS ORDERED: MetroNIDAZOLE 500 MG/NACL 100 ML IV SCH (22:15)
[2021-03-03] MEDS ORDERED: *CLINICAL-LEVOFLOXACIN IVPB DOSING CLINICAL ONE (22:30)
[2021-03-03] MEDS ORDERED: SODIUM CHLORIDE 0.9% 1,000 ML IV ONE (22:30)
[2021-03-03] MEDS ORDERED: LEVOFLOXACIN 750 MG/D5% WATER 150 ML IV ONE (23:00)
[2021-03-04] VITALS (7 sets, daily range): BP systolic 95–111; BP diastolic 45–58
[2021-03-04] MEDS: MetroNIDAZOLE 500 MG/NACL 100 ML IV SCH ×4 (00:20→23:13)
[2021-03-04 05:41] LABS: BASOPHILS % (AUTO) 0.2 % (0.0-2.0); EOSINOPHILS % (AUTO) 0.2 % (1.0-6.0); HEMATOCRIT 42.4 % (36-46); HEMOGLOBIN 14.3 g/dL (12.0-16.0); LYMPHOCYTES % (AUTO) 4.8 % (22.0-44.0); MEAN CORPUSCULAR HEMOGLOBIN 33.7 pg (26.0-34.0); MEAN CORPUSCULAR HGB CONC 33.8 G/dL (31.0-37.0); MEAN CORPUSCULAR VOLUME 100 fL (80-100); MONOCYTES # (AUTO) 1.9 K/uL (0.1-1.0); MONOCYTES % (AUTO) 9.3 % (2.0-9.0); NEUTROPHILS # (AUTO) 17.3 K/uL (1.8-7.7); PLATELET COUNT (AUTO) 125 K/uL (150-450); RED BLOOD CELL COUNT(AUTO) 4.24 MIL/uL (4.00-5.20); RED CELL DISTRIBUTION WIDTH 15.4 % (11.5-14.5)
[2021-03-04 06:40] LABS: ALBUMIN 2.5 g/dL (3.4-5.0); BILIRUBIN,TOTAL 0.3 mg/dL (0.1-1.0); CALCIUM, TOTAL 11.3 mg/dL (8.8-10.5); CREATININE 7.37 mg/dL (0.60-1.30); MAGNESIUM 2.6 mg/dL (1.80-2.40); PHOSPHORUS 3.7 mg/dL (2.5-4.9); POTASSIUM 4.8 mmol/L (3.5-5.1); TOTAL PROTEIN, SERUM 7.2 g/dL (6.4-8.2)
[2021-03-04 07:26] LABS: NEUTROPHILS % (AUTO) 85.5 % (40.0-70.0)
[2021-03-04] MEDS: MIDODRINE HCL 5 MG TABLET PO SCH ×3 (07:55→20:51)
[2021-03-04] MEDS: APIXABAN 5 MG TABLET PO SCH (07:55)
[2021-03-04] MEDS: SEVELAMER CARBONATE 800 MG TABLET PO SCH ×3 (08:00→18:00)
[2021-03-04] MEDS: CINACALCET HCL 30 MG TABLET PO SCH (08:00)
[2021-03-04] MEDS: PANTOPRAZOLE SODIUM 40 MG/VIAL IVP SCH ×2 (09:00→20:51)
[2021-03-04] MEDS: DOCUSATE SODIUM 100 MG CAPSULE PO SCH (09:00)
[2021-03-04] MEDS: ATORVASTATIN CALCIUM 40 MG TABLET PO SCH (09:00)
[2021-03-04] MEDS: ASPIRIN 81 MG CHEWABLE TABLET PO SCH (09:00)
[2021-03-04] MEDS: CefTRIAXone 1 GM/DEXTROSE 50 ML IV SCH (10:51)
[2021-03-04] MEDS: METOCLOPRAMIDE HCL 5 MG/ML 2 ML VIAL IVP PRN (18:24)
[2021-03-04 20:46] LABS: GLUCOMETER DEV NAME(LOC) 5N.1C; GLUCOSE,POINT OF CARE 89 MG/DL (70-110)
[2021-03-04] MEDS: ONDANSETRON HCL 4 MG/2 ML VIAL IVP PRN (20:51)
[2021-03-04] MEDS: DEXTROSE 5%-WATER 1,000 ML IV SCH (20:51)
[2021-03-04 23:39] LABS: GLUCOMETER DEV NAME(LOC) 5S.2B; GLUCOSE,POINT OF CARE 115 MG/DL (70-110)
[2021-03-05 05:30] VITALS: BP 97/52
[2021-03-05 07:25] VITALS: BP 98/54
[2021-03-05] MEDS: CINACALCET HCL 30 MG TABLET PO SCH (08:00)
[2021-03-05] MEDS: MetroNIDAZOLE 500 MG/NACL 100 ML IV SCH ×2 (08:16→16:44)
[2021-03-05] MEDS: PANTOPRAZOLE SODIUM 40 MG/VIAL IVP SCH ×2 (08:17→21:09)
[2021-03-05] MEDS: SEVELAMER CARBONATE 800 MG TABLET PO SCH ×3 (08:52→18:00)
[2021-03-05] MEDS: ATORVASTATIN CALCIUM 40 MG TABLET PO SCH (08:52)
[2021-03-05] MEDS: MIDODRINE HCL 5 MG TABLET PO SCH ×3 (08:53→21:00)
[2021-03-05] MEDS: CefTRIAXone 1 GM/DEXTROSE 50 ML IV SCH (10:00)
[2021-03-05 11:42] VITALS: BP 94/52
[2021-03-05] MEDS: METOCLOPRAMIDE HCL 5 MG/ML 2 ML VIAL IVP PRN ×2 (12:33→21:09)
[2021-03-05 15:15] VITALS: BP 92/48
[2021-03-05] MEDS: DEXTROSE 5%-WATER 1,000 ML IV SCH (15:24)
[2021-03-05 16:54] LABS: GLUCOMETER DEV NAME(LOC) 5N.3; GLUCOSE,POINT OF CARE 86 MG/DL (70-110)
[2021-03-05 18:06] LABS: GLUCOMETER DEV NAME(LOC) 5N.1C; GLUCOSE,POINT OF CARE 82 MG/DL (70-110)
[2021-03-05 19:21] VITALS: BP 93/56
[2021-03-05] MEDS: LEVOFLOXACIN 500 MG/D5% WATER 100 ML IV SCH (22:49)
[2021-03-05 23:50] LABS: GLUCOMETER DEV NAME(LOC) 5N.1C; GLUCOSE,POINT OF CARE 97 MG/DL (70-110)
[2021-03-06] VITALS (7 sets, daily range): BP systolic 95–127; BP diastolic 43–71
[2021-03-06] MEDS: MetroNIDAZOLE 500 MG/NACL 100 ML IV SCH ×4 (00:15→23:26)
[2021-03-06 06:24] LABS: GLUCOMETER DEV NAME(LOC) 5N.1C; GLUCOSE,POINT OF CARE 105 MG/DL (70-110)
[2021-03-06] MEDS: SEVELAMER CARBONATE 800 MG TABLET PO SCH ×3 (07:19→15:22)
[2021-03-06] MEDS: CINACALCET HCL 30 MG TABLET PO SCH (07:19)
[2021-03-06 07:20] LABS: BASOPHILS % (AUTO) 0.2 % (0.0-2.0); EOSINOPHILS % (AUTO) 0.2 % (1.0-6.0); HEMATOCRIT 38.6 % (36-46); HEMOGLOBIN 12.5 g/dL (12.0-16.0); LYMPHOCYTES # (AUTO) 1.2 K/uL (1.0-4.8); LYMPHOCYTES % (AUTO) 4.6 % (22.0-44.0); MEAN CORPUSCULAR HEMOGLOBIN 32.6 pg (26.0-34.0); MEAN CORPUSCULAR HGB CONC 32.4 G/dL (31.0-37.0); MEAN CORPUSCULAR VOLUME 101 fL (80-100); MONOCYTES # (AUTO) 1.9 K/uL (0.1-1.0); MONOCYTES % (AUTO) 7.2 % (2.0-9.0); NEUTROPHILS # (AUTO) 23.6 K/uL (1.8-7.7); PLATELET COUNT (AUTO) 178 K/uL (150-450); RED BLOOD CELL COUNT(AUTO) 3.83 MIL/uL (4.00-5.20); RED CELL DISTRIBUTION WIDTH 15.2 % (11.5-14.5)
[2021-03-06] MEDS: ATORVASTATIN CALCIUM 40 MG TABLET PO SCH (07:20)
[2021-03-06] MEDS: MIDODRINE HCL 5 MG TABLET PO SCH ×3 (07:20→20:00)
[2021-03-06 07:24] LABS: CALCIUM, TOTAL 10.6 mg/dL (8.8-10.5); CREATININE 5.46 mg/dL (0.60-1.30); POTASSIUM 4.2 mmol/L (3.5-5.1)
[2021-03-06 07:27] LABS: NEUTROPHILS % (AUTO) 87.8 % (40.0-70.0)
[2021-03-06 07:30] LABS: ALBUMIN 2.2 g/dL (3.4-5.0); BILIRUBIN,TOTAL 0.4 mg/dL (0.1-1.0); TOTAL PROTEIN, SERUM 6.7 g/dL (6.4-8.2)
[2021-03-06] MEDS ORDERED: SODIUM CHLORIDE 0.9% 2,000 ML ONE (07:43)
[2021-03-06] MEDS: DEXTROSE 5%-WATER 1,000 ML IV SCH (07:45)
[2021-03-06] MEDS: DEXTROSE 5%-0.9% SODIUM CHL 1,000 ML IV SCH (09:59)
[2021-03-06] MEDS: PANTOPRAZOLE SODIUM 40 MG/VIAL IVP SCH ×2 (11:18→20:01)
[2021-03-06] MEDS: DEXTROSE 50%-WATER 25 GM/50 ML SYRINGE IVP PRN (11:54)
[2021-03-06] MEDS: CefTRIAXone 1 GM/DEXTROSE 50 ML IV SCH (13:11)
[2021-03-06] MEDS ORDERED: SODIUM CHLORIDE 0.9% 1,000 ML ONE (15:37)
[2021-03-06 17:14] LABS: GLUCOMETER DEV NAME(LOC) 5N.1C; GLUCOSE,POINT OF CARE 68 MG/DL (70-110)
[2021-03-06 17:14] LABS: GLUCOMETER DEV NAME(LOC) 5N.1C; GLUCOSE,POINT OF CARE 124 MG/DL (70-110)
[2021-03-06] MEDS ORDERED: DiphenhydrAMINE HCL 50 MG/ML VIAL IM ONE (17:41)
[2021-03-06] MEDS ORDERED: HEPARIN SODIUM,PORCINE 1,000 UNITS/ML VIAL IVP ONE (17:41)
[2021-03-06] MEDS ORDERED: MORPHINE SULFATE 2 MG/ML SYRINGE IVP PRN (23:15)
[2021-03-06] MEDS: MORPHINE SULFATE 2 MG/ML SYRINGE IVP PRN (23:25)
[2021-03-07 00:22] VITALS: BP 100/42
[2021-03-07 04:04] VITALS: BP 108/57
[2021-03-07 06:57] LABS: INR 1.1 (0.9-1.1)
[2021-03-07] MEDS: MIDODRINE HCL 5 MG TABLET PO SCH ×3 (07:19→21:00)
[2021-03-07] MEDS: SEVELAMER CARBONATE 800 MG TABLET PO SCH ×3 (07:19→16:18)
[2021-03-07] MEDS: ATORVASTATIN CALCIUM 40 MG TABLET PO SCH (07:19)
[2021-03-07] MEDS: CINACALCET HCL 30 MG TABLET PO SCH (07:19)
[2021-03-07 07:57] LABS: GLUCOMETER DEV NAME(LOC) 5N.1C; GLUCOSE,POINT OF CARE 109 MG/DL (70-110)
[2021-03-07] MEDS: MetroNIDAZOLE 500 MG/NACL 100 ML IV SCH ×2 (08:12→16:19)
[2021-03-07] MEDS: DEXTROSE 5%-0.9% SODIUM CHL 1,000 ML IV SCH (08:12)
[2021-03-07] MEDS: PANTOPRAZOLE SODIUM 40 MG/VIAL IVP SCH ×2 (08:13→20:22)
[2021-03-07] MEDS ORDERED: BUPIVACAINE LIPOSOME/PF 1.3%-13.3MG/ML SUSPENSION 20 ML VIAL INJ ONE (08:15)
[2021-03-07 09:16] VITALS: BP 120/59
[2021-03-07] MEDS ORDERED: SODIUM CHLORIDE 0.9% 500 ML IV ONE (09:43)
[2021-03-07] MEDS: CefTRIAXone 1 GM/DEXTROSE 50 ML IV SCH (10:18)
[2021-03-07] MEDS ORDERED: SODIUM CHLORIDE 0.9% 1,000 ML IV ONE (10:30)
[2021-03-07] MEDS ORDERED: ACETAMINOPHEN 1000 MG/ISO-OSM 100 ML IV ONE (11:25)
[2021-03-07] MEDS ORDERED: ROCURONIUM BROMIDE 10 MG/ML 5 ML VIAL IVP ONE (12:00)
[2021-03-07] MEDS ORDERED: PROPOFOL 1% 20 ML VIAL IVP ONE (12:00)
[2021-03-07] MEDS ORDERED: LIDOCAINE/PF 2% 5 ML VIAL IM ONE (12:00)
[2021-03-07] MEDS ORDERED: ONDANSETRON HCL 4 MG/2 ML VIAL IVP ONE (12:00)
[2021-03-07] MEDS ORDERED: DEXAMETHASONE SOD PHOS 4 MG/ML VIAL IVP ONE (12:00)
[2021-03-07] MEDS ORDERED: SUGAMMADEX SODIUM 200 MG/2 ML VIAL IVP ONE (12:08)
[2021-03-07] MEDS ORDERED: SODIUM CHLORIDE 0.9% 0 ML ONE (12:09)
[2021-03-07] MEDS ORDERED: ROPIVACAINE HCL/PF 0.2% 100 ML ED ONE (12:09)
[2021-03-07] MEDS ORDERED: ONDANSETRON HCL 4 MG/2 ML VIAL IVP PRN (12:45)
[2021-03-07] MEDS ORDERED: FentaNYL CITRATE PF 100 MCG/2 ML VIAL IVP ONE (13:10)
[2021-03-07] MEDS ORDERED: SODIUM CHLORIDE 0.9% 1,000 ML ONE (13:18)
[2021-03-07] MEDS ORDERED: FentaNYL CITRATE PF 100 MCG/2 ML VIAL IVP PRN (13:45)
[2021-03-07] MEDS ORDERED: HYDROmorphone 2 MG/ML VIAL IVP PRN (13:45)
[2021-03-07 14:18] LABS: ABG A-A DIFF O2 28.4 mmHg (10-20.0); ABG BASE EXCESS -6.4 mmol/L (-2.0-3.0); ABG HCO3 19.6 mmol/L (22.0-26.0); ABG METHEMOGLOBIN 0.3 % (0.0-1.5); ABG OXYGEN CONTENT 15.9 mL/dL (15.0-23.0); ABG OXYGEN SATURATION 96.1 % (95.0-98.0); ABG OXYHEMOGLOBIN 94.9 % (94.0-100.0); ABG PCO2 38 mmHg (35-45); ABG PH 7.331 (7.35-7.450); ABG TOTAL HEMOGLOBIN 11.9 G/dL (12.0-18.0); PO2, ARTERIAL BG 76.3 mmHg (84.0-92.0); SOURCE, BLOOD GAS ARTERIAL; TEMPERATURE, FAHRENHEIT, BG 97.6 FAHREN (96.0-98.6)
[2021-03-07 14:19] LABS: O2 DEVICE,BLOOD GAS ROOM AIR (ROOM AIR); SITE, BLOOD GAS ARTERIAL LINE
[2021-03-07 16:00] VITALS: BP 113/65
[2021-03-07] MEDS: MORPHINE SULFATE 2 MG/ML SYRINGE IVP PRN ×2 (17:53→20:25)
[2021-03-07 18:09] VITALS: BP 109/63
[2021-03-07 18:54] LABS: GLUCOMETER DEV NAME(LOC) 5S.1; GLUCOSE,POINT OF CARE 99 MG/DL (70-110)
[2021-03-07 20:00] VITALS: BP 100/61
[2021-03-07] MEDS: OXYGEN THERAPY IH SCH (20:00)
[2021-03-07] MEDS: LEVOFLOXACIN 500 MG/D5% WATER 100 ML IV SCH (21:49)
[2021-03-08] VITALS: BP 100/55
[2021-03-08] MEDS: MetroNIDAZOLE 500 MG/NACL 100 ML IV SCH ×4 (01:01→23:26)
[2021-03-08] MEDS: MORPHINE SULFATE 2 MG/ML SYRINGE IVP PRN ×4 (01:02→20:42)
[2021-03-08 04:00] VITALS: BP 106/52
[2021-03-08 06:42] LABS: GLUCOMETER DEV NAME(LOC) 5S.1; GLUCOSE,POINT OF CARE 84 MG/DL (70-110)
[2021-03-08 07:30] VITALS: BP 118/60
[2021-03-08] MEDS: OXYGEN THERAPY IH SCH (08:00)
[2021-03-08] MEDS: SEVELAMER CARBONATE 800 MG TABLET PO SCH ×3 (08:00→17:23)
[2021-03-08] MEDS: CINACALCET HCL 30 MG TABLET PO SCH (08:00)
[2021-03-08 08:12] LABS: EOSINOPHILS % (AUTO) 0.4 % (1.0-6.0); HEMATOCRIT 31.9 % (36-46); HEMOGLOBIN 10.2 g/dL (12.0-16.0); LYMPHOCYTES # (AUTO) 0.9 K/uL (1.0-4.8); LYMPHOCYTES % (AUTO) 3.3 % (22.0-44.0); MEAN CORPUSCULAR HEMOGLOBIN 32.5 pg (26.0-34.0); MEAN CORPUSCULAR HGB CONC 31.9 G/dL (31.0-37.0); MEAN CORPUSCULAR VOLUME 102 fL (80-100); MONOCYTES # (AUTO) 1.7 K/uL (0.1-1.0); MONOCYTES % (AUTO) 6.3 % (2.0-9.0); NEUTROPHILS # (AUTO) 23.7 K/uL (1.8-7.7); PLATELET COUNT (AUTO) 165 K/uL (150-450); RED BLOOD CELL COUNT(AUTO) 3.14 MIL/uL (4.00-5.20); RED CELL DISTRIBUTION WIDTH 15.8 % (11.5-14.5)
[2021-03-08 08:32] LABS: ALBUMIN 1.7 g/dL (3.4-5.0); BILIRUBIN,TOTAL 0.2 mg/dL (0.1-1.0); CALCIUM, TOTAL 9.1 mg/dL (8.8-10.5); CREATININE 4.49 mg/dL (0.60-1.30); POTASSIUM 4.1 mmol/L (3.5-5.1); TOTAL PROTEIN, SERUM 5.4 g/dL (6.4-8.2)
[2021-03-08] MEDS: ATORVASTATIN CALCIUM 40 MG TABLET PO SCH (09:00)
[2021-03-08] MEDS: PANTOPRAZOLE SODIUM 40 MG/VIAL IVP SCH ×2 (09:00→20:31)
[2021-03-08] MEDS: MIDODRINE HCL 5 MG TABLET PO SCH ×3 (09:00→20:30)
[2021-03-08] MEDS: DEXTROSE 5%-0.9% SODIUM CHL 1,000 ML IV SCH (09:00)
[2021-03-08] MEDS: CefTRIAXone 1 GM/DEXTROSE 50 ML IV SCH (11:00)
[2021-03-08 11:17] VITALS: BP 125/59
[2021-03-08] MEDS ORDERED: MIDAZOLAM HCL 2 MG/2 ML VIAL IVP ONE (12:00)
[2021-03-08] MEDS ORDERED: FentaNYL CITRATE PF 100 MCG/2 ML VIAL IVP ONE (12:00)
[2021-03-08 15:28] VITALS: BP 103/58
[2021-03-08] MEDS ORDERED: DiphenhydrAMINE HCL 50 MG/ML VIAL IM ONE (15:36)
[2021-03-08] MEDS ORDERED: HEPARIN SODIUM,PORCINE 1,000 UNITS/ML VIAL IVP ONE (15:36)
[2021-03-08] MEDS: DEXTROSE 50%-WATER 25 GM/50 ML SYRINGE IVP PRN (19:08)
[2021-03-08 19:37] VITALS: BP 105/65
[2021-03-08 21:39] LABS: GLUCOMETER DEV NAME(LOC) 5N.1C; GLUCOSE,POINT OF CARE 68 MG/DL (70-110)
[2021-03-08 21:39] LABS: GLUCOMETER DEV NAME(LOC) 5N.1C; GLUCOSE,POINT OF CARE 73 MG/DL (70-110)
[2021-03-08 21:40] LABS: GLUCOMETER DEV NAME(LOC) 5N.1C; GLUCOSE,POINT OF CARE 113 MG/DL (70-110)
[2021-03-09 00:03] VITALS: BP 97/64
[2021-03-09 05:03] VITALS: BP 100/68
[2021-03-09] MEDS: MORPHINE SULFATE 2 MG/ML SYRINGE IVP PRN ×3 (05:15→21:04)
[2021-03-09 06:37] LABS: GLUCOMETER DEV NAME(LOC) 5N.3; GLUCOSE,POINT OF CARE 100 MG/DL (70-110)
[2021-03-09 06:37] LABS: GLUCOMETER DEV NAME(LOC) 5N.3; GLUCOSE,POINT OF CARE 104 MG/DL (70-110)
[2021-03-09] MEDS: OXYGEN THERAPY IH SCH ×2 (08:00→20:00)
[2021-03-09] MEDS: SEVELAMER CARBONATE 800 MG TABLET PO SCH ×3 (08:00→17:37)
[2021-03-09] MEDS: CINACALCET HCL 30 MG TABLET PO SCH (08:00)
[2021-03-09] MEDS: MetroNIDAZOLE 500 MG/NACL 100 ML IV SCH ×2 (08:12→17:37)
[2021-03-09] MEDS: PANTOPRAZOLE SODIUM 40 MG/VIAL IVP SCH ×2 (08:14→20:53)
[2021-03-09] MEDS: DEXTROSE 5%-0.9% SODIUM CHL 1,000 ML IV SCH (08:18)
[2021-03-09] MEDS: ATORVASTATIN CALCIUM 40 MG TABLET PO SCH (08:34)
[2021-03-09] MEDS: MIDODRINE HCL 5 MG TABLET PO SCH ×3 (08:34→21:00)
[2021-03-09 08:48] VITALS: BP 93/54
[2021-03-09] MEDS: CefTRIAXone 1 GM/DEXTROSE 50 ML IV SCH (10:23)
[2021-03-09 11:29] VITALS: BP 115/61
[2021-03-09 14:01] LABS: GLUCOMETER DEV NAME(LOC) 5S.1; GLUCOSE,POINT OF CARE 89 MG/DL (70-110)
[2021-03-09] MEDS ORDERED: SODIUM CHLORIDE 0.9% 2,000 ML ONE (15:37)
[2021-03-09 16:24] VITALS: BP 107/40
[2021-03-09 19:43] VITALS: BP 99/53
[2021-03-09] MEDS: LEVOFLOXACIN 500 MG/D5% WATER 100 ML IV SCH (23:03)
[2021-03-10] VITALS (8 sets, daily range): BP systolic 96–127; BP diastolic 50–76
[2021-03-10 00:11] LABS: GLUCOMETER DEV NAME(LOC) 5S.1; GLUCOSE,POINT OF CARE 71 MG/DL (70-110)
[2021-03-10 00:11] LABS: GLUCOMETER DEV NAME(LOC) 5S.1; GLUCOSE,POINT OF CARE 85 MG/DL (70-110)
[2021-03-10] MEDS: MetroNIDAZOLE 500 MG/NACL 100 ML IV SCH ×4 (00:49→23:37)
[2021-03-10] MEDS: MORPHINE SULFATE 2 MG/ML SYRINGE IVP PRN ×2 (01:08→09:48)
[2021-03-10 07:03] LABS: GLUCOMETER DEV NAME(LOC) 5S.1; GLUCOSE,POINT OF CARE 94 MG/DL (70-110)
[2021-03-10] MEDS: SEVELAMER CARBONATE 800 MG TABLET PO SCH ×3 (08:00→17:29)
[2021-03-10] MEDS: CINACALCET HCL 30 MG TABLET PO SCH (08:00)
[2021-03-10] MEDS: OXYGEN THERAPY IH SCH ×2 (08:00→20:00)
[2021-03-10] MEDS: ATORVASTATIN CALCIUM 40 MG TABLET PO SCH (09:00)
[2021-03-10] MEDS: MIDODRINE HCL 5 MG TABLET PO SCH ×3 (09:00→20:12)
[2021-03-10] MEDS: PANTOPRAZOLE SODIUM 40 MG/VIAL IVP SCH ×2 (09:46→20:25)
[2021-03-10] MEDS: DEXTROSE 5%-0.9% SODIUM CHL 1,000 ML IV SCH (09:47)
[2021-03-10] MEDS: CefTRIAXone 1 GM/DEXTROSE 50 ML IV SCH (10:57)
[2021-03-10] MEDS ORDERED: HEPARIN SODIUM,PORCINE 1,000 UNITS/ML VIAL ONE (14:48)
[2021-03-10] MEDS ORDERED: DiphenhydrAMINE HCL 50 MG/ML VIAL ONE (14:48)
[2021-03-10 17:03] LABS: GLUCOMETER DEV NAME(LOC) 5S.1; GLUCOSE,POINT OF CARE 89 MG/DL (70-110)
[2021-03-10 18:17] LABS: GLUCOMETER DEV NAME(LOC) 5N.1C; GLUCOSE,POINT OF CARE 76 MG/DL (70-110)
[2021-03-10 21:53] LABS: GLUCOMETER DEV NAME(LOC) 5S.1; GLUCOSE,POINT OF CARE 103 MG/DL (70-110)
[2021-03-11 05:12] VITALS: BP 126/72
[2021-03-11] MEDS: MORPHINE SULFATE 2 MG/ML SYRINGE IVP PRN (05:37)
[2021-03-11 05:43] LABS: BASOPHILS % (AUTO) 0.2 % (0.0-2.0); EOSINOPHILS % (AUTO) 1.3 % (1.0-6.0); HEMATOCRIT 32.2 % (36-46); HEMOGLOBIN 10.2 g/dL (12.0-16.0); MEAN CORPUSCULAR HEMOGLOBIN 32.5 pg (26.0-34.0); MEAN CORPUSCULAR HGB CONC 31.6 G/dL (31.0-37.0); MEAN CORPUSCULAR VOLUME 103 fL (80-100); MONOCYTES # (AUTO) 1.7 K/uL (0.1-1.0); MONOCYTES % (AUTO) 8.8 % (2.0-9.0); NEUTROPHILS # (AUTO) 16.4 K/uL (1.8-7.7); NEUTROPHILS % (AUTO) 84.7 % (40.0-70.0); PLATELET COUNT (AUTO) 200 K/uL (150-450); RED BLOOD CELL COUNT(AUTO) 3.13 MIL/uL (4.00-5.20); RED CELL DISTRIBUTION WIDTH 15.4 % (11.5-14.5)
[2021-03-11 06:35] LABS: GLUCOMETER DEV NAME(LOC) 5N.3; GLUCOSE,POINT OF CARE 84 MG/DL (70-110)
[2021-03-11 06:44] LABS: CALCIUM, TOTAL 10.1 mg/dL (8.8-10.5); CREATININE 4.24 mg/dL (0.60-1.30)
[2021-03-11] MEDS: OXYGEN THERAPY IH SCH ×2 (08:00→20:00)
[2021-03-11 08:12] VITALS: BP 100/41
[2021-03-11] MEDS: DEXTROSE 5%-0.9% SODIUM CHL 1,000 ML IV SCH (09:00)
[2021-03-11] MEDS: MetroNIDAZOLE 500 MG/NACL 100 ML IV SCH ×2 (09:23→20:00)
[2021-03-11] MEDS: PANTOPRAZOLE SODIUM 40 MG/VIAL IVP SCH ×2 (09:23→21:00)
[2021-03-11] MEDS: ATORVASTATIN CALCIUM 40 MG TABLET PO SCH (09:58)
[2021-03-11] MEDS: CINACALCET HCL 30 MG TABLET PO SCH (09:58)
[2021-03-11] MEDS: SEVELAMER CARBONATE 800 MG TABLET PO SCH ×3 (09:58→21:19)
[2021-03-11] MEDS: CefTRIAXone 1 GM/DEXTROSE 50 ML IV SCH (11:25)
[2021-03-11] MEDS: MIDODRINE HCL 5 MG TABLET PO SCH ×3 (11:29→21:17)
[2021-03-11] MEDS ORDERED: HEPARIN SODIUM,PORCINE 1,000 UNITS/ML VIAL IVP ONE (12:00)
[2021-03-11 12:04] VITALS: BP 155/68
[2021-03-11] MEDS: APIXABAN 5 MG TABLET PO SCH ×2 (13:35→21:18)
[2021-03-11 14:44] LABS: GLUCOMETER DEV NAME(LOC) 5N.1C; GLUCOSE,POINT OF CARE 95 MG/DL (70-110)
[2021-03-11 15:30] VITALS: BP 142/73
[2021-03-11 21:20] LABS: GLUCOMETER DEV NAME(LOC) 5N.3; GLUCOSE,POINT OF CARE 104 MG/DL (70-110)
[2021-03-11] MEDS ORDERED: PANTOPRAZOLE SODIUM 40 MG DR TABLET PO ONE (22:15)
[2021-03-11] MEDS ORDERED: MetroNIDAZOLE 500 MG TABLET PO ONE (22:15)
[2021-03-11] MEDS: LEVOFLOXACIN 500 MG/D5% WATER 100 ML IV SCH (22:53)
[2021-03-11] MEDS ORDERED: LEVOFLOXACIN 500 MG TABLET PO ONE (23:00)
[2021-03-11] MEDS: ZOLPIDEM TARTRATE 5 MG TABLET PO PRN (23:14)
[2021-03-11 23:19] VITALS: BP 103/50
[2021-03-12 00:56] LABS: GLUCOMETER DEV NAME(LOC) 5S.1; GLUCOSE,POINT OF CARE 91 MG/DL (70-110)
[2021-03-12] MEDS: MetroNIDAZOLE 500 MG/NACL 100 ML IV SCH (03:51)
[2021-03-12 04:20] VITALS: BP 125/57
[2021-03-12 06:40] LABS: GLUCOMETER DEV NAME(LOC) 5S.1; GLUCOSE,POINT OF CARE 144 MG/DL (70-110)
[2021-03-12 07:54] VITALS: BP 122/60
[2021-03-12] MEDS: OXYGEN THERAPY IH SCH ×2 (08:00→20:00)
[2021-03-12] MEDS: MIDODRINE HCL 5 MG TABLET PO SCH ×3 (08:43→20:29)
[2021-03-12] MEDS: APIXABAN 5 MG TABLET PO SCH ×2 (08:45→20:30)
[2021-03-12] MEDS: ATORVASTATIN CALCIUM 40 MG TABLET PO SCH (08:45)
[2021-03-12] MEDS: PANTOPRAZOLE SODIUM 40 MG/VIAL IVP SCH ×2 (08:45→20:29)
[2021-03-12] MEDS: SEVELAMER CARBONATE 800 MG TABLET PO SCH ×3 (08:45→17:43)
[2021-03-12] MEDS: DEXTROSE 5%-0.9% SODIUM CHL 1,000 ML IV SCH (08:46)
[2021-03-12] MEDS: CINACALCET HCL 30 MG TABLET PO SCH (08:46)
[2021-03-12] MEDS: CefTRIAXone 1 GM/DEXTROSE 50 ML IV SCH (10:47)
[2021-03-12] MEDS ORDERED: CASPOFUNGIN ACETATE 70 MG in SODIUM CHLORIDE 0.9% 250 ML IV ONE (11:30)
[2021-03-12 14:36] VITALS: BP 107/49
[2021-03-12 16:30] VITALS: BP 118/45
[2021-03-12] MEDS: MetroNIDAZOLE 500 MG TABLET PO SCH ×2 (16:52→20:30)
[2021-03-12] MEDS: MORPHINE SULFATE 2 MG/ML SYRINGE IVP PRN (17:31)
[2021-03-12 19:42] VITALS: BP 124/70
[2021-03-12 21:13] LABS: GLUCOMETER DEV NAME(LOC) 5S.1; GLUCOSE,POINT OF CARE 138 MG/DL (70-110)
[2021-03-12 21:13] LABS: GLUCOMETER DEV NAME(LOC) 5S.1; GLUCOSE,POINT OF CARE 164 MG/DL (70-110)
[2021-03-12 21:16] LABS: GLUCOMETER DEV NAME(LOC) 5N.1C; GLUCOSE,POINT OF CARE 120 MG/DL (70-110)
[2021-03-12 23:57] VITALS: BP 113/62
[2021-03-13 06:09] VITALS: BP 93/62
[2021-03-13] MEDS: MIDODRINE HCL 5 MG TABLET PO SCH ×3 (06:09→20:47)
[2021-03-13] MEDS ORDERED: SODIUM CHLORIDE 0.9% 2,000 ML ONE (06:30)
[2021-03-13 06:56] LABS: BASOPHILS % (AUTO) 0.5 % (0.0-2.0); HEMATOCRIT 27.7 % (36-46); HEMOGLOBIN 9.1 g/dL (12.0-16.0); LYMPHOCYTES # (AUTO) 1.1 K/uL (1.0-4.8); LYMPHOCYTES % (AUTO) 5.1 % (22.0-44.0); MEAN CORPUSCULAR HEMOGLOBIN 32.9 pg (26.0-34.0); MEAN CORPUSCULAR HGB CONC 32.8 G/dL (31.0-37.0); MEAN CORPUSCULAR VOLUME 100 fL (80-100); MONOCYTES # (AUTO) 1.8 K/uL (0.1-1.0); MONOCYTES % (AUTO) 8.6 % (2.0-9.0); NEUTROPHILS # (AUTO) 17.6 K/uL (1.8-7.7); NEUTROPHILS % (AUTO) 84.8 % (40.0-70.0); PLATELET COUNT (AUTO) 224 K/uL (150-450); RED BLOOD CELL COUNT(AUTO) 2.76 MIL/uL (4.00-5.20); RED CELL DISTRIBUTION WIDTH 15.6 % (11.5-14.5)
[2021-03-13 07:53] VITALS: BP 103/44
[2021-03-13] MEDS: OXYGEN THERAPY IH SCH ×2 (08:00→20:00)
[2021-03-13] MEDS: SEVELAMER CARBONATE 800 MG TABLET PO SCH ×4 (08:00→18:00)
[2021-03-13] MEDS: DEXTROSE 5%-0.9% SODIUM CHL 1,000 ML IV SCH (09:00)
[2021-03-13] MEDS: EPOETIN ALFA 10,000 UNITS/ML 2 ML VIAL SQ SCH ×2 (09:00→10:16)
[2021-03-13] MEDS: MORPHINE SULFATE 2 MG/ML SYRINGE IVP PRN (09:55)
[2021-03-13] MEDS: PANTOPRAZOLE SODIUM 40 MG/VIAL IVP SCH ×2 (10:15→20:47)
[2021-03-13] MEDS: MetroNIDAZOLE 500 MG TABLET PO SCH ×3 (10:17→20:48)
[2021-03-13] MEDS: APIXABAN 5 MG TABLET PO SCH ×2 (10:17→20:47)
[2021-03-13] MEDS: CINACALCET HCL 30 MG TABLET PO SCH (10:18)
[2021-03-13] MEDS: ATORVASTATIN CALCIUM 40 MG TABLET PO SCH (10:21)
[2021-03-13] MEDS: CefTRIAXone 1 GM/DEXTROSE 50 ML IV SCH (10:21)
[2021-03-13] MEDS ORDERED: SODIUM CHLORIDE 0.9% 250 ML IV ONE ×2 (10:48→20:38)
[2021-03-13] MEDS ORDERED: DEXTROSE 50%-WATER 25 GM/50 ML SYRINGE IVP PRN (11:00)
[2021-03-13] MEDS ORDERED: CASPOFUNGIN ACETATE 50 MG in SODIUM CHLORIDE 0.9% 250 ML IV SCH (12:00)
[2021-03-13 12:19] LABS: GLUCOMETER DEV NAME(LOC) 5S.1; GLUCOSE,POINT OF CARE 142 MG/DL (70-110)
[2021-03-13 12:40] VITALS: BP 109/56
[2021-03-13 13:43] LABS: GLUCOMETER DEV NAME(LOC) 5N.1C; GLUCOSE,POINT OF CARE 113 MG/DL (70-110)
[2021-03-13 16:30] VITALS: BP 83/45
[2021-03-13 20:10] VITALS: BP 127/73
[2021-03-13] MEDS: CEFEPIME HCL 1 GM in DEXTROSE 5%-WATER 50 ML IV SCH (20:46)
[2021-03-13] MEDS ORDERED: *CLINICAL-CEFEPIME DOSING CLINICAL ONE (21:00)
[2021-03-13] MEDS: METOCLOPRAMIDE HCL 5 MG/ML 2 ML VIAL IVP PRN (21:09)
[2021-03-13] MEDS: ZOLPIDEM TARTRATE 5 MG TABLET PO PRN (22:01)
[2021-03-13 23:41] VITALS: BP 137/65
[2021-03-14 01:25] LABS: GLUCOMETER DEV NAME(LOC) 5N.1C; GLUCOSE,POINT OF CARE 121 MG/DL (70-110)
[2021-03-14] MEDS ORDERED: INFLUENZA VIRUS VACCINE QVS 2021-22 (6MO+)/PF 60 MCG/0.5 ML SYRINGE IM. ONE (01:45)
[2021-03-14 04:53] VITALS: BP 125/57
[2021-03-14] MEDS: INSULIN LISPRO 100 UNITS/ML SQ PRN ×2 (06:29→21:29)
[2021-03-14] MEDS: OXYGEN THERAPY IH SCH ×2 (08:00→20:00)
[2021-03-14] MEDS: PANTOPRAZOLE SODIUM 40 MG/VIAL IVP SCH ×2 (08:24→20:13)
[2021-03-14] MEDS: SEVELAMER CARBONATE 800 MG TABLET PO SCH ×3 (08:24→18:00)
[2021-03-14] MEDS: CINACALCET HCL 30 MG TABLET PO SCH (08:24)
[2021-03-14] MEDS: MIDODRINE HCL 5 MG TABLET PO SCH ×3 (08:25→20:13)
[2021-03-14] MEDS: APIXABAN 5 MG TABLET PO SCH ×2 (08:25→20:13)
[2021-03-14] MEDS: ATORVASTATIN CALCIUM 40 MG TABLET PO SCH (08:25)
[2021-03-14] MEDS: MetroNIDAZOLE 500 MG TABLET PO SCH ×3 (08:25→20:14)
[2021-03-14 08:26] VITALS: BP 95/46
[2021-03-14] MEDS ORDERED: FLUCONAZOLE 200 MG TABLET PO SCH (09:00)
[2021-03-14 10:58] VITALS: BP 98/42
[2021-03-14 11:05] LABS: BASOPHILS % (AUTO) 0.6 % (0.0-2.0); EOSINOPHILS % (AUTO) 0.6 % (1.0-6.0); HEMOGLOBIN 9.1 g/dL (12.0-16.0); LYMPHOCYTES # (AUTO) 1.2 K/uL (1.0-4.8); LYMPHOCYTES % (AUTO) 6.1 % (22.0-44.0); MEAN CORPUSCULAR HEMOGLOBIN 32.7 pg (26.0-34.0); MEAN CORPUSCULAR HGB CONC 32.5 G/dL (31.0-37.0); MEAN CORPUSCULAR VOLUME 101 fL (80-100); MONOCYTES # (AUTO) 1.3 K/uL (0.1-1.0); MONOCYTES % (AUTO) 6.7 % (2.0-9.0); NEUTROPHILS # (AUTO) 16.7 K/uL (1.8-7.7); PLATELET COUNT (AUTO) 226 K/uL (150-450); RED BLOOD CELL COUNT(AUTO) 2.78 MIL/uL (4.00-5.20)
[2021-03-14] MEDS ORDERED: HEPARIN SODIUM,PORCINE 1,000 UNITS/ML VIAL IVP ONE (17:02)
[2021-03-14] MEDS ORDERED: DiphenhydrAMINE HCL 50 MG/ML VIAL IM ONE (17:02)
[2021-03-14] MEDS: CASPOFUNGIN ACETATE 50 MG in SODIUM CHLORIDE 0.9% 250 ML IV SCH (18:19)
[2021-03-14 18:27] LABS: GLUCOMETER DEV NAME(LOC) 5N.1C; GLUCOSE,POINT OF CARE 141 MG/DL (70-110)
[2021-03-14 18:27] LABS: GLUCOMETER DEV NAME(LOC) 5N.1C; GLUCOSE,POINT OF CARE 121 MG/DL (70-110)
[2021-03-14 20:20] VITALS: BP 117/67
[2021-03-14] MEDS: CEFEPIME HCL 1 GM in DEXTROSE 5%-WATER 50 ML IV SCH (20:21)
[2021-03-14] MEDS: ZOLPIDEM TARTRATE 5 MG TABLET PO PRN (20:36)
[2021-03-14 20:45] LABS: GLUCOMETER DEV NAME(LOC) 5S.1; GLUCOSE,POINT OF CARE 119 MG/DL (70-110)
[2021-03-14 21:12] LABS: GLUCOMETER DEV NAME(LOC) 5N.3; GLUCOSE,POINT OF CARE 138 MG/DL (70-110)
[2021-03-15 00:31] LABS: GLUCOMETER DEV NAME(LOC) 5S.1; GLUCOSE,POINT OF CARE 145 MG/DL (70-110)
[2021-03-15 04:36] VITALS: BP 122/69
[2021-03-15 06:40] LABS: BASOPHILS % (AUTO) 0.7 % (0.0-2.0); EOSINOPHILS % (AUTO) 0.8 % (1.0-6.0); HEMATOCRIT 25.4 % (36-46); HEMOGLOBIN 8.3 g/dL (12.0-16.0); LYMPHOCYTES # (AUTO) 1.3 K/uL (1.0-4.8); LYMPHOCYTES % (AUTO) 6.9 % (22.0-44.0); MEAN CORPUSCULAR HEMOGLOBIN 32.7 pg (26.0-34.0); MEAN CORPUSCULAR HGB CONC 32.7 G/dL (31.0-37.0); MEAN CORPUSCULAR VOLUME 100 fL (80-100); MONOCYTES # (AUTO) 1.4 K/uL (0.1-1.0); MONOCYTES % (AUTO) 7.6 % (2.0-9.0); NEUTROPHILS # (AUTO) 15.6 K/uL (1.8-7.7); PLATELET COUNT (AUTO) 219 K/uL (150-450); RED BLOOD CELL COUNT(AUTO) 2.54 MIL/uL (4.00-5.20); RED CELL DISTRIBUTION WIDTH 15.3 % (11.5-14.5)
[2021-03-15 06:48] LABS: COVID AG,FIA SOURCE NASOPHARYNGEAL
[2021-03-15] MEDS: OXYGEN THERAPY IH SCH (08:00)
[2021-03-15 08:05] VITALS: BP 116/66
[2021-03-15] MEDS: ATORVASTATIN CALCIUM 40 MG TABLET PO SCH (08:53)
[2021-03-15] MEDS: APIXABAN 5 MG TABLET PO SCH (08:58)
[2021-03-15] MEDS: MIDODRINE HCL 5 MG TABLET PO SCH ×2 (08:58→17:03)
[2021-03-15] MEDS: SEVELAMER CARBONATE 800 MG TABLET PO SCH ×3 (08:59→18:00)
[2021-03-15] MEDS: MetroNIDAZOLE 500 MG TABLET PO SCH ×2 (08:59→17:04)
[2021-03-15] MEDS: CINACALCET HCL 30 MG TABLET PO SCH (09:16)
[2021-03-15] MEDS: PANTOPRAZOLE SODIUM 40 MG/VIAL IVP SCH (09:17)
[2021-03-15] MEDS: EPOETIN ALFA 10,000 UNITS/ML 2 ML VIAL SQ SCH (10:37)
[2021-03-15 11:02] LABS: GLUCOMETER DEV NAME(LOC) 5S.1; GLUCOSE,POINT OF CARE 103 MG/DL (70-110)
[2021-03-15 12:15] VITALS: BP 119/67
[2021-03-15] MEDS ORDERED: SODIUM CHLORIDE 0.9% 2,000 ML ONE (12:42)
[2021-03-15] MEDS: METOCLOPRAMIDE HCL 5 MG/ML 2 ML VIAL IVP PRN (12:44)
[2021-03-15 12:50] LABS: GLUCOMETER DEV NAME(LOC) 5N.1C; GLUCOSE,POINT OF CARE 102 MG/DL (70-110)
[2021-03-15 16:15] VITALS: BP 126/53
[2021-03-15] MEDS ORDERED: CASP50VI IV (16:42)
[2021-03-15] MEDS ORDERED: CEFE2I IV (16:43)
[2021-03-15] MEDS ORDERED: EPOE10I SQ (16:44)
[2021-03-15] MEDS ORDERED: MIDO5TAB29 PO (16:45)
[2021-03-15] MEDS ORDERED: METR250 PO (16:53)
[2021-03-15] MEDS ORDERED: SEVE0.8P6 PO (16:54)
[2021-03-15] MEDS ORDERED: ACET-2247 PO (16:55)
[2021-03-15] MEDS ORDERED: DIPH25TA51 PO (16:56)
[2021-03-15] MEDS ORDERED: HYDR-4723 PO (16:57)
[2021-03-15] MEDS ORDERED: ZOLP-280 PO (17:03)
[2021-03-15] MEDS: CASPOFUNGIN ACETATE 50 MG in SODIUM CHLORIDE 0.9% 250 ML IV SCH (17:04)
[2021-03-15] MEDS ORDERED: HEPARIN SODIUM,PORCINE 1,000 UNITS/ML VIAL IVP ONE (19:29)
[2021-03-15] MEDS ORDERED: DiphenhydrAMINE HCL 50 MG/ML VIAL IM ONE (19:29)
[2021-03-17 02:19] LABS: GLUCOMETER DEV NAME(LOC) 5S.1; GLUCOSE,POINT OF CARE 81 MG/DL (70-110)
== END 2021-03-15 19:30 | DRG 264 ==
LOC: EMS 16:35 → 5S 02-24 06:47
PROVIDERS: ADMIT Internal Medicine; ATTEND Internal Medicine
PROC: 0D9670Z Drainage of Stomach with Drainage Device, Via Natural or Artificial Opening (ICD-10-PCS; 2021-03-06)
PROC: 0DBF0ZZ Excision of Right Large Intestine, Open Approach (ICD-10-PCS; principal; 2021-03-07 12:00)
PROC: 05HY33Z Insertion of Infusion Device into Upper Vein, Percutaneous Approach (ICD-10-PCS; 2021-03-14)
DX: I13.2 Hypertensive heart and chronic kidney disease with heart failure and with stage 5 chronic kidney disease, or end stage renal disease (principal); N18.6 End stage renal disease; J18.9 Pneumonia, unspecified organism; K55.9 Vascular disorder of intestine, unspecified; K56.609 Unspecified intestinal obstruction, unspecified as to partial versus complete obstruction; J44.0 Chronic obstructive pulmonary disease with (acute) lower respiratory infection; E11.52 Type 2 diabetes mellitus with diabetic peripheral angiopathy with gangrene; E87.1 Hypo-osmolality and hyponatremia; I25.10 Atherosclerotic heart disease of native coronary artery without angina pectoris; E11.22 Type 2 diabetes mellitus with diabetic chronic kidney disease; I35.0 Nonrheumatic aortic (valve) stenosis; I48.0 Paroxysmal atrial fibrillation; J44.9 Chronic obstructive pulmonary disease, unspecified; I50.9 Heart failure, unspecified; K59.00 Constipation, unspecified; K31.84 Gastroparesis; E78.5 Hyperlipidemia, unspecified; G89.29 Other chronic pain; E66.01 Morbid (severe) obesity due to excess calories; E11.43 Type 2 diabetes mellitus with diabetic autonomic (poly)neuropathy; D69.6 Thrombocytopenia, unspecified; K76.0 Fatty (change of) liver, not elsewhere classified; N20.0 Calculus of kidney; L89.150 Pressure ulcer of sacral region, unstageable; Z20.822 Contact with and (suspected) exposure to COVID-19; Z82.5 Family history of asthma and other chronic lower respiratory diseases; Z82.49 Family history of ischemic heart disease and other diseases of the circulatory system; Z79.01 Long term (current) use of anticoagulants; Z83.3 Family history of diabetes mellitus; Z86.74 Personal history of sudden cardiac arrest; Z90.710 Acquired absence of both cervix and uterus; Z95.1 Presence of aortocoronary bypass graft; Z95.2 Presence of prosthetic heart valve; Z99.2 Dependence on renal dialysis; Z95.5 Presence of coronary angioplasty implant and graft; Z93.3 Colostomy status; Z88.0 Allergy status to penicillin; Z79.899 Other long term (current) drug therapy; Z68.34 Body mass index [BMI] 34.0-34.9, adult; Z90.49 Acquired absence of other specified parts of digestive tract
CPT/HCPCS: 36245; 36569; 36600; 71045; 71275; 74018; 74019; 74021; 74177; 76700; 76937; 80048; 80053; 82271; 82308; 82805; 82962; 83605; 83690; 83735; 83880; 84100; 84443; 84484; 85025; 85379; 85610; 85730; 86140; 87040; 87070; 87081; 87205; 87340; 88307; 90686; 93005; 93970; 97110; 97112; 97163; 97167; 97530; 97535; 99285; C9113; C9290; G0238; J0131; J0637; J0690; J0692; J0696; J0885; J1100; J1200; J1644; J1956; J2250; J2270; J2405; J2704; J2765; J2795; J3010; J3490; J7030; J7040; J7042; J7050; J7060; P9047; Q9967; 36415-L1; 36415-TC; G0008; U0003; Z7610